=== PATIENT | male | born 1950 | race Caucasian/White ===

== ENCOUNTER → 2019-12-02 08:43 | Outpatient (BNVA) | payer MEDICARE, MEDICAID, SELFPAY | PROVIDERS: Family Provider Nurse Practitioner Family; PCP Nurse Practitioner Family; Visit Provider Nurse Practitioner Family | DX: I10 Essential (primary) hypertension (principal); E78.5 Hyperlipidemia, unspecified | CPT/HCPCS: 80053; 80061 ==

== ENCOUNTER → 2020-11-29 08:57 | Outpatient (BNVA) | payer MEDICARE, MEDICAID, SELFPAY | PROVIDERS: Family Provider Nurse Practitioner Family; PCP Nurse Practitioner Family; Visit Provider Nurse Practitioner Family | DX: E78.5 Hyperlipidemia, unspecified (principal); I10 Essential (primary) hypertension | CPT/HCPCS: 80053; 80061 ==

== ENCOUNTER → 2021-11-27 12:08 | Outpatient (BNVA) | payer MEDICARE, MEDICAID, SELFPAY | PROVIDERS: Family Provider Nurse Practitioner Family; PCP Nurse Practitioner Family; Visit Provider Nurse Practitioner Family | DX: I10 Essential (primary) hypertension (principal); E78.5 Hyperlipidemia, unspecified | CPT/HCPCS: 80053; 80061 ==

== ENCOUNTER → 2022-06-04 09:19 | Outpatient (BNVA) | payer MEDICARE, MEDICAID, SELFPAY | PROVIDERS: Family Provider Nurse Practitioner Family; PCP Nurse Practitioner Family; Visit Provider Nurse Practitioner Family | DX: I10 Essential (primary) hypertension (principal) | CPT/HCPCS: 80053; 80061 ==

== ENCOUNTER 2023-01-08 13:18 | Inpatient (IN) | payer MEDICARE, MEDICAID, SELFPAY ==
[2023-01-08] VITALS (11 sets, daily range): BP systolic 106–130; BP diastolic 70–89; PULSE 73–96; RESP 16–17; TEMP 35.9; O2SAT 98–100; BMI 21.7; BMI 18.3
--- NOTE | 2023-01-08 13:36 | XR_ITS ---
WS: [id number] Exam: XR chest 1V portable [id number] Date/Time of Exam: 01/08/2023 1:36 PM Reason For Exam: ams Comparison 02/19/2013. The lungs are hyperinflated and clear. Normal cardiomediastinal silhouette. No pleural effusions. Sca ttered calcified granulomas. Bony structures are intact. IMPRESSION: 1. Pulmonary hyperinflation which may indicate obstructive lung disease. No acute process.
--- NOTE | 2023-01-08 13:36 | W.ED.WEAKNES ---
HPI - Weakness General: Chief complaint: Weakness Stated complaint: Weakness Time Seen by Provider: 01/08/23 13:36 History of Present Illness: Patient presents to the ER with EMS due to his daughter calling them for altered mental status. Patient is alert and oriented x4 upon arrival with no complaints. Patient denies any chest pain shortness of breath nausea vomiting diarrhea abdominal pain diaphoresis fever chills upon talking to daughter she states patient is now bedbound because he is so weak and has been this way for the last week. She says he will not let her changes diapers and just lays around and soiled diapers, she says he has lost 20 or 30 pounds over the last several months not trying. He just does not eat or drink and is just wasting away to nothing. However he still smokes approximately 4 packs/day and drinks alcohol every single day. Review of Systems General: Reports: 10 or more systems reviewed and unremarkable except in HPI and below PFSH ED PFSH: Medical History Hyperlipidemia Hypertension Surgical History History of ankle surgery Family History Father Cancer throat Social History Smoking and tobacco/nicotine status: current every day tobacco/nicotine user Physical Exam Const: COMMON NORMALS: no acute distress, average body habitus, patient oriented x3, no limitations, healthy appearing, alert and well nourished HENMT: COMMON NORMALS: normocephalic, atraumatic, hearing grossly normal bilaterally, external ears normal, Normal external nose present, moist oral mucous membranes and oropharynx normal HEAD & SCALP: normocephalic and atraumatic NOSE: Normal external nose present EXTERNAL EAR: Yes external ears normal Eye: COMMON NORMALS: Equal, round and reactive pupils present, EOMs intact bilaterally, conjunctivae normal and no scleral icterus CONJUNCTIVA: Yes conjunctivae normal PUPIL: Yes Equal, round and reactive pupils present Neck/C-Spine: COMMON NORMALS: full ROM, no lymphadenopathy, supple, no meningeal signs, no JVD and Thyroid normal THYROID: Thyroid normal Chest: COMMONS NORMALS: normal inspection of the chest and normal palpation of entire chest wall Resp: COMMON NORMALS: normal respiratory effort, No retractions, No use of accessory muscles and clear to auscultation bilaterally AUSCULTATION: clear to auscultation bilaterally Cardio: COMMON NORMALS: no JVD, regular rate, regular rhythm, S1 normal heart sound present, S2 normal heart sound present, No gallops present (Cardio), No clicks present (Cardio), No murmurs present (Cardio) and No rub (Cardio) RATE: regular rate RHYTHM: regular rhythm HEART SOUNDS: S1 normal heart sound present and S2 normal heart sound present GI: COMMON NORMALS: Normal to inspection, nondistended, normoactive bowel sounds present ( Probable left inguinal hernia noted), Soft to palpation, non-tender, No hepatosplenomegaly present and no masses PALPATION: Yes Soft to palpation and Yes No hepatosplenomegaly present Extremity: NARRATIVE EXTREMITY EXAM: Bandages removed on left upper extremity wound bandage was old crusty with multiple ages of drainage noted on it. Wound was approximately a 4 cm round ulcerated raised edge area consistent with probable skin cancer. No purulent drainage or odor noted from wound Neuro: COMMON NORMALS: patient oriented x3 SENSORIUM/ORIENTATION: Yes alert MENINGEAL SIGNS: Yes no meningeal signs Course Vital Signs: Vital signs: Vital Signs Pulse Rate 84 01/08/23 20:11 Respiratory Rate 16 01/08/23 20:11 Blood Pressure 113/73 01/08/23 20:11 Pulse Oximetry 99 01/08/23 20:11 Oxygen Delivery Me thod Room Air 01/08/23 20:11 MDM - Weakness Medical Decision Making patient has obvious skin cancer on his left upper extremity, very heavy long-term smoker, alcoholic, with unintentional weight loss. It is suspected patient has cancer and/or metastases. Patient's lab work showed he is hyponatremic and hypokalemic with an elevated troponin. Dr. Elizabeth was consulted who agreed to admit the patient for further evaluation and treatment. We will silverman scan the patient and scan his left arm. Results are pending. Differential Diagnosis Unlikely acute myocardial infarction, anemia, hypoglycemia, hypothyroidism, rhabdomyolysis, sepsis or dehydration Medical Records I reviewed the patient's medical records. Lab Data I reviewed the patient's lab results. 01/08/23 14:09 01/08/23 14:09 Radiology Impressions Chest/Abdomen/Pelvis CT 01/08/23 15:37 IMPRESSION: 1. 2.3 cm cavitary nodule in the left upper lobe. Consider non-emergent IMPRESSION: 1. No acute findings. 2. Indeterminate 1.7 cm right adrenal nodule. Consider 12 month follow-up adrenal CT. (Reference: Aristides) 3. 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 References: Aristides JOE, et al. Management of Incidental Adrenal Masses: A White Paper of the ACR Incidental Findings Committee. J Am [facility] Radiol. 2017;14(8):9735-6840. Humerus CT 01/08/23 15:39 IMPRESSION: 1. Large cutaneous/dermal lesion in the distal left upper arm as described. Dermatology consultation recommended. 2. 2.3 cm cavitary left upper lobe nodule. Please refer to CT chest report. Laboratory Results WBC 9.03 10^3/uL (3.29-11.43) 01/08/23 14:09 RBC 3.40 10^6/uL (3.85-5.65) L 01/08/23 14:09 Hgb 11.90 g/dL (11.27-16.99) 01/08/23 14:09 Hct 33.0 % (37-53) L 01/08/23 14:09 MCV 97.1 fl (82-101) 01/08/23 14:09 MCH 35.0 pg (27-33) H 01/08/23 14:09 MCHC 36.1 g/dL (30-55) 01/08/23 14:09 RDW 13.7 % (12.1-15.1) 01/08/23 14:09 Plt Count 203 10^3/cmm (157-399) 01/08/23 14:09 MPV 9.6 fL (7.4-10.4) 01/08/23 14:09 Neut % (Auto) 79.3 % 01/08/23 14:09 Lymph % (Auto) 13.3 % 01/08/23 14:09 Slope % (Auto) 6.3 % 01/08/23 14:09 Eos % (Auto) 0.2 % 01/08/23 14:09 Baso % (Auto) 0.3 % 01/08/23 14:09 Neut # (Auto) 7.16 10^3/uL (1.8-7.7) 01/08/23 14:09 Lymph # (Auto) 1.2 10^3/uL (0.8-4.8) 01/08/23 14:09 Slope # (Auto) 0.6 10^3/uL (0.2-0.9) 01/08/23 14:09 Eos # (Auto) 0.0 10^3/uL (0.0-0.8) 01/08/23 14:09 Baso # (Auto) 0.0 10^3/uL (0.0-0.1) 01/08/23 14:09 Nucleated RBC % (auto) 0.2 % 01/08/23 14:09 Nucleated RBCs # 0.0 /100WBC 01/08/23 14:09 ESR 27 mm/hr (0-10) H 01/08/23 14:09 Sodium 128 mmol/L (136-145) L 01/08/23 14:09 Potassium 3.1 mmol/L (3.5-5.1) L 01/08/23 14:09 Chloride 86 mmol/L (98-107) L 01/08/23 14:09 Carbon Dioxide 24 mmol/L (22-29) 01/08/23 14:09 Anion Gap 21.1 (5-19) H 01/08/23 14:09 BUN 20 mg/dL (8-23) 01/08/23 14:09 Creatinine 0.9 mg/dL (0.7-1.2) 01/08/23 14:09 GFR Calculation 83.4 mL/min (90-130) L 01/08/23 14:09 Glucose 112 mg/dL (65-115) 01/08/23 14:09 Estimat Average Glucose 128 01/08/23 14:09 Hemoglobin A1c 6.1 % (4.0-6.0) H 01/08/23 14:09 Calculated Osmolality 269 mOsm/kg (285-295) L 01/08/23 14:09 Uric Acid 9.8 mg/dL (3.4-7.0) H 01/08/23 14:09 Calcium 8.9 mg/dL (8.5-10.5) 01/08/23 14:09 Magnesium 1.7 mg/dL (1.7-2.3) 01/08/23 14:09 Total Bilirubin 0.8 mg/dL (0.15-1.2) 01/08/23 14:09 AST 31 U/L (0-40) 01/08/23 14:09 ALT 25 U/L (0-41) 01/08/23 14:09 Alkaline Phosphatase 118 U/L (40-130) 01/08/23 14:09 Troponin T Baseline 37 ng/L (0-15) H 01/08/23 14:09 Total Protein 6.3 g/dL (6.6-8.7) L 01/08/23 14:09 Albumin 2.9 g/dL (3.5-5.2) L 01/08/23 14:09 Globulin 3.4 g/dL (1.3-4.6) 01/08/23 14:09 Triglycerides 117 mg/dL (0-150) 01/08/23 14:09 Cholesterol 177 mg/dL (0-200) 01/08/23 14:09 LDL Cholesterol, Calc 109 mg/dL (50-129) 01/08/23 14:09 HDL Cholesterol 45 mg/dL (60-100) L 01/08/23 14:09 LDL/HDL Ratio 2.42 RATIO (0.00-3.22) 01/08/23 14:09 Cholesterol/HDL Ratio 3.93 mg/dL (1.0-5.00) 01/08/23 14:09 Carcinoembryonic Ag 3.3 ng/mL (0.0-4.7) 01/08/23 14:09 CA 19-9 Antigen 15.77 U/mL (0-35) 01/08/23 14:09 PSA Screen 16.75 ng/mL (0-4) H 01/08/23 14:09 Vitamin B12 894 pg/mL (232-1245) 01/08/23 14:09 TSH 1.31 uIU/mL (0.27-4.20) 01/08/23 14:09 TSH Cancelled 01/08/23 14:09 All radiology interpretation(s) finalized by discharge EKG Data EKG 1: I personally reviewed and interpreted this EKG as follows: EKG interpretation date: 01/08/23 EKG interpretation time: 13:37 Prior EKG tracings: not available for review Interpretation: EKG showed ventricular rate 89 bpm, W[place] interval 148, QRS duration 77, QTc of 422, sinus rhythm with occasional PVC, ST deviation moderate T wave abnormality Discharge Plan Discharge Patient Disposition: Admitted As Inpatient Admit Provider: Ana Elizabeth Clinical Impression: Elevated troponin, Acute hyponatremia, Acute hypokalemia, Generalized weakness, Unintentional weight loss Condition: Stable Coding Level of Care Code ED 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
--- NOTE | 2023-01-08 13:37 | ECG_ITS ---
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 [id number]
[2023-01-08 14:19] LABS: Basophils % 0.3 %; Eosinophils % 0.2 %; Lymphocytes # 1.2 10^3/uL (0.8-4.8); Lymphocytes % 13.3 %; Mean Corpuscular HGB Conc 36.1 g/dL (30-55); Mean Corpuscular Volume 97.1 fl (82-101); Mean Platelet Volume 9.6 fL (7.4-10.4); Monocytes # 0.6 10^3/uL (0.2-0.9); Monocytes % 6.3 %; Neutrophils # 7.16 10^3/uL (1.8-7.7); Neutrophils % 79.3 %; Nucleated Red Blood Cells % 0.2 %; Platelet Count 203 10^3/cmm (157-399); Red Cell Distribution Width 13.7 % (12.1-15.1); White Blood Count 9.03 10^3/uL (3.29-11.43)
[2023-01-08 14:36] LABS: Alanine Aminotransferase 25 U/L (0-41); Albumin Level 2.9 g/dL (3.5-5.2); Alkaline Phosphatase 118 U/L (40-130); Anion Gap 21.1 (5-19); Aspartate Amino Transferase 31 U/L (0-40); Blood Urea Nitrogen 20 mg/dL (8-23); Calcium 8.9 mg/dL (8.5-10.5); Carbon Dioxide 24 mmol/L (22-29); Chloride 86 mmol/L (98-107); Globulin 3.4 g/dL (1.3-4.6); Glomerular Filtration Rate 83.4 mL/min (90-130); Glucose 112 mg/dL (65-115); Magnesium 1.7 mg/dL (1.7-2.3); Osmolality Calculated 269 mOsm/kg (285-295); Potassium 3.1 mmol/L (3.5-5.1); Sodium 128 mmol/L (136-145); Total Bilirubin 0.8 mg/dL (0.15-1.2); Total Protein 6.3 g/dL (6.6-8.7)
[2023-01-08 14:49] LABS: Troponin(5th) Baseline 37 ng/L (0-15)
--- NOTE | 2023-01-08 14:53 | PC.NURSE ---
pt change of linen pt pants/ socks were removed. pt found to be in a very soiled brief with paper towels and 'rags' pt fond to have scoriation and redness to sacrum and scrotum. pt cleaned with warm wipes. and a new brief placed and sheets changed.
[2023-01-08 14:54] LABS: Thyroid Stimulating Hormone 1.31 uIU/mL (0.27-4.20)
--- NOTE | 2023-01-08 15:37 | CTR_ITS ---
PROCEDURE INFORMATION: Exam: CT Chest With Contrast; Diagnostic Exam date and time: 01/08/2023 4:27 PM Age: 72 years old Clinical indication: Other: Weight loss; Additional info: Unintentional weight loss, heavy smoker, skin cancer niko TECHNIQUE: Imaging protocol: Diagnostic computed tomography of the chest with contrast. Radiation optimization: All CT scans at this facility use at least one of these dose optimization techniques: automated exposure control; mA and/or kV adjustment per patient size (includes targeted exams where dose is matched to clinical indication); or iterative reconstruction. Contrast material: OMNI 350; Contrast volume: 100 ml; Contrast route: INTRAVENOUS (IV); REPORTING DATA: Count of CT and Cardiac NM exams in prior 12 months: This patient has received 0 known CTs and 0 known cardiac nuclear medicine studies in the 12 months prior to the current study. COMPARISON: CR XR chest 1V portable [id number] 01/08/2023 1:41 PM RADIATION DOSE METRICS: Total DLP (mGy-cm): 415 FINDINGS: Lungs: Emphysema. Right middle lobe calcified granulomas. Mild dependent atelectasis. 2.3 cm nodule with small cavitation in the peripheral left upper lobe. Pleural spaces: Unremarkable. No pneumothorax. No pleural effusion. Heart: The heart size is normal. Coronary arteries: Coronary artery calcifications. Lymph nodes: Calcified mediastinal and right hilar lymph nodes. Vasculature: Unremarkable. No aortic aneurysm. Bones/joints: Degenerative changes of the cervical and thoracic spine. No acute fracture. Soft tissues: Unremarkable. PET/CT, or tissue sampling.(Reference: Karen) References: Temihoanupam H, et al. Guidelines for Management of Incidental Pulmonary Nodules Detected on CT Images: From the Fleischner Society 2017. Radiology. 2017;284(1):228-243. COMMENTS: In the absence of a history or active diagnosis of lung cancer, it is recommended that this patient with emphysema be evaluated for enrollment in a low dose CT lung cancer screening program. PROCEDURE INFORMATION: Exam: CT Abdomen And Pelvis With Contrast Exam date and time: 01/08/2023 4:27 PM Age: 72 years old Clinical indication: Other: Weight loss; Additional info: Unintentional weight loss, heavy smoker, skin cancer niko TECHNIQUE: Imaging protocol: Computed tomography of the abdomen and pelvis with contrast. Radiation optimization: All CT scans at this facility use at least one of these dose optimization techniques: automated exposure control; mA and/or kV adjustment per patient size (includes targeted exams where dose is matched to clinical indication); or iterative reconstruction. Contrast material: OMNI 350; Contrast volume: 100 ml; Contrast route: INTRAVENOUS (IV); REPORTING DATA: Count of CT and Cardiac NM exams in prior 12 months: This patient has received 0 known CTs and 0 known cardiac nuclear medicine studies in the 12 months prior to the current study. COMPARISON: CR XR chest 1V portable [id number] 01/08/2023 1:41 PM RADIATION DOSE METRICS: Total DLP (mGy-cm): 415 FINDINGS: Liver: Focal fatty infiltration in the left liver lobe. No suspicious nodule. Gallbladder and bile ducts: Normal. No calcified stones. No ductal dilation. Pancreas: Normal. No ductal dilation. Spleen: Calcified granuloma in the spleen. Adrenal glands: 1.7 cm indeterminate right adrenal nodule, 33 Hounsfield units. The left adrenal is normal. Kidneys and ureters: 3 mm calculi versus vascular calcifications in the central right and left kidneys. No hydronephrosis. Stomach and bowel: Radiopaque material in the gastric lumen is most likely ingested medication. Appendix: The appendix is visualized and is normal. Intraperitoneal space: Unremarkable. No free air. No significant fluid collection. Vasculature: Severe atherosclerotic disease. 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 Moderate-severe stenosis in the proximal superior mesenteric artery Lymph nodes: Unremarkable. No enlarged lymph nodes. Urinary bladder: Distended urinary bladder. No wall thickening. Reproductive: Inhomogeneous prostate with calcifications. Bones/joints: Mild curvature and degenerative changes of the lumbar spine. No acute fracture. 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 Soft tissues: Unremarkable. CT/CT chest abdpel w/*[id number] IMPRESSION: 1. 2.3 cm cavitary nodule in the left upper lobe. Consider non-emergent IMPRESSION: 1. No acute findings. 2. Indeterminate 1.7 cm right adrenal nodule. Consider 12 month follow-up adrenal CT. (Reference: Aristides) 3. 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 References: Aristides JOE, et al. Management of Incidental Adrenal Masses: A White Paper of the ACR Incidental Findings Committee. J Am [facility] Radiol. 2017;14(8):2072-0626.
--- NOTE | 2023-01-08 15:39 | CTR_ITS ---
PROCEDURE INFORMATION: Exam: CT Left Upper Extremity With Contrast, Upper Arm Exam date and time: 01/08/2023 4:27 PM Age: 72 years old Clinical indication: Other: Soft tissue cancerouslike mass; Additional info: Soft tissue cancerouslike mass lateral mid bicep region, TECHNIQUE: Imaging protocol: Computed tomography of the left upper extremity with contrast. Exam focused on the upper arm. Radiation optimization: All CT scans at this facility use at least one of these dose optimization techniques: automated exposure control; mA and/or kV adjustment per patient size (includes targeted exams where dose is matched to clinical indication); or iterative reconstruction. Contrast material: OMNI 350; Contrast volume: 100 ml; Contrast route: INTRAVENOUS (IV); REPORTING DATA: Count of CT and Cardiac NM exams in prior 12 months: This patient has received 0 known CTs and 0 known cardiac nuclear medicine studies in the 12 months prior to the current study. COMPARISON: CT chest abdpel w/*[id number] 01/08/2023 4:27 PM RADIATION DOSE METRICS: Total DLP (mGy-cm): 962 FINDINGS: Bones/joints: The bones are intact. No fracture. Mild degenerative changes of the left shoulder. Soft tissues: Irregular cutaneous/dermal lesion in the anterolateral distal left upper arm. This measures 4.2 cm transversely, 3.4 mm in thickness, and 4.6 cm in length. Lymph nodes: No enlarged lymph nodes. Lungs: 2.3 cm cavitary left upper lobe nodule. CT/CT humerus LT w con [id number] IMPRESSION: 1. Large cutaneous/dermal lesion in the distal left upper arm as described. Dermatology consultation recommended. 2. 2.3 cm cavitary left upper lobe nodule. Please refer to CT chest report.
[2023-01-08] MEDS: potassium chloride ER 20 mEq Tablet 40 MEQ PO (15:40)
[2023-01-08] MEDS: sodium chloride 0.9% 1,000 ML 999 ML IV (15:42)
--- NOTE | 2023-01-08 15:44 | PC.NURSE ---
potassium administration pt had a hard time swallowing, had to remoeve additional doese from pyxis due to waste.
--- NOTE | 2023-01-08 16:25 | ECG_ITS ---
[facility] Test Date: 2023-01-08 Pat Name: Xavi Jorge Department: Room: 276 Gender: Male Gynecologist: : 1950 Requested By: Elivn Heath Order Number: [id number] Katey MD: Barber Ordoñez M.D. Measurements Intervals [place] Rate: 85 P: 76 ID: [id number] QRS: 69 QRSD: 86 T: 39 QT: 386 QTc: 460 Interpretive Statements SINUS RHYTHM WITH SINUS ARRHYTHMIA ST DEVIATION AND MODERATE T-WAVE ABNORMALITY, CONSIDER ANTERIOR ISCHEMIA [-0.1+ mV T-WAVE IN V3/V4] Compared to ECG 01/08/2023 13:37:31 Ventricular premature complex(es) no longer present T-wave abnormality still present Possible ischemia still present Electronically Signed On 01-10-2023 14:16:10 CLEAT MAKER by Barber Ordoñez M.D. [id number]
[2023-01-08 16:54] LABS: Estmated Average Glucose 128; Hemoglobin A1C 6.1 % (4.0-6.0)
[2023-01-08] MEDS: iohexol 350 mg/mL 500 mL Btl (per mL) IV (16:54)
[2023-01-08 16:59] LABS: Chol HDL Ratio 3.93 mg/dL (1.0-5.00); Cholesterol 177 mg/dL (0-200); HDL Cholesterol 45 mg/dL (60-100); LDL Cholesterol Calculated 109 mg/dL (50-129); LDL HDL Ratio 2.42 RATIO (0.00-3.22); Triglycerides 117 mg/dL (0-150); Vitamin B12 894 pg/mL (232-1245)
[2023-01-08 17:34] LABS: Troponin 5 2HR 29.05 ng/L (0-15); Troponin 5 2HR Delta -7.95 ABS# (0-10)
--- NOTE | 2023-01-08 17:53 | PM.HP ---
Providers/Chief Complaint Admitting Physician: Ana Elizabeth MD Primary Care Provider: GUNNAR Rodriguez Chief Complaint: Weakness History of Present Illness Xavi Jorge is a 72 year old male who lives in a trailer, daughter checks on him on daily basis, active smoker, drinks alcohol on daily basis, was transferred to the ER today for generalized weakness recurrent falls and failure to thrive. Patient is not endorsing any chest pain shortness of breath however endorsing unintentional weight loss, there is an ulcer on his left arm which has and rolled edges, it has been there for last 2 years he never had any skin biopsy done in the past, CT scan of the lungs showing cavitary lesion 2.3 cm left upper lobe, I requested TB test, put him in reverse isolation, started antibiotics He is afebrile, significant amount of time was spent on family meetings regarding differential diagnosis of cavitary lesion patient is refusing any work-up however daughter is concerned that he is hallucinating and not able to make good decisions for himself Patient is stating that he will walk out of the hospital in the morning, I have put him on CIWA protocol started phenobarbital added nicotine patch Review of Systems Eyes: Denies: change in vision ENMT: Denies: throat pain Card: Denies: chest pain Resp: Reports: dyspnea GI: Denies: abdominal pain : Denies: flank pain Musc: Denies: neck pain Skin/Breast: Reports: rash, erythema and skin tenderness Medications/Allergies Home Medications Medication Instructions Recorded Confirmed Last Taken Type No Known Home Medications 01/08/23 01/08/23 Unknown History Allergies Allergy/AdvReac Type Severity Reaction Status Date / Time naproxen [From Aleve] Allergy Unknown Verified 01/08/23 14:06 PFSH Acute PFSH: Medical History Hyperlipidemia Hypertension Surgical History History of ankle surgery Family History Father Cancer throat Social History Smoking and tobacco/nicotine status: current every day tobacco/nicotine user Vitals/I&O/Wt Last Vital Signs Pulse 78 01/08/23 16:30 Resp 17 01/08/23 16:00 BP 122/81 01/08/23 16:00 Pulse Ox 98 01/08/23 16:30 O2 Del Method Room Air 01/08/23 16:00 Weight last 48 hrs Weight 68.492 kg Weight 72.575 kg Physical Exam Narrative: Patient was able to answer my questions appropriately I do not see any signs of cognitive impairment at this point No active signs of withdrawal GCS 15 Left arm skin ulcer with rolled edges No active signs cellulitis or purulence Cachectic, malnourished Pleasant and cooperative Abdomen soft Right inguinal hernia reducible Data 01/08/23 14:09 01/08/23 14:09 A&P Assessment and plan (1) Unintentional weight loss: (2) Generalized weakness: (3) Acute hypokalemia: (4) Acute hyponatremia: (5) Elevated troponin: (6) Hyperlipidemia: (7) Hypertension: (8) Skin ulcer: (9) Pulmonary cavitary lesion: (10) Failure to thrive: (11) Malnourished: (12) Protein calorie malnutrition: Plan Cavitary lesion Left upper lobe Rule out TB Requested HIV panel Patient is malnourished We will consult dietitian in the morning Requested sputum sample PCP sputum PCR Patient will need biopsy of the skin ulcer as well with rolled edges Lung cancer needs to be ruled out as well patient is stating that he is not willing to go for biopsy chemotherapy or radiotherapy, 2 daughters present in the room Multiple family meetings conducted today Patient is alcoholic as well start CIWA protocol and start phenobarbital at this time Drinks beer on daily basis Heavy smoker patient stating that he has been smoking since he was 7 years old he smokes more than 1 pack a day start nicotine patch Malnourished with dehydration Hyponatremia hypokalemia start IV fluids Check B12 TSH A1c level Patient is full code for now patient stating that he would like to discuss further with his family and let us know in the morning As per the family they are concerned that he does not have decision making pasty however I have not seen any signs of hallucinations or cognitive impairment during my evaluation, will monitor further Patient lives in a trailer, he is refusing to go to penitentiary as well Daughter stating that she is willing to take him home Regular diet Reverse isolation rule out TB Attestations Medical Necessity Statement*: More than 2 midnights anticipated Diagnoses Unintentional weight loss R63.4 Generalized weakness R53.1 Acute hypokalemia E87.6 Acute hyponatremia E87.1 Elevated troponin R79.89 Hyperlipidemia E78.5 Hypertension I10 Skin ulcer L98.499 Pulmonary cavitary lesion J98.4 Failure to thrive Malnourished E46 Protein calorie malnutrition E46
[2023-01-08 18:55] LABS: Cancer Antigen 19 9 15.77 U/mL (0-35); Uric Acid 9.8 mg/dL (3.4-7.0)
[2023-01-08 18:56] LABS: PSA Screen - Urology 16.75 ng/mL (0-4)
--- NOTE | 2023-01-08 19:00 | CTR_ITS ---
PROCEDURE INFORMATION: Exam: CT Head Without Contrast Exam date and time: 01/08/2023 7:48 PM Age: 72 years old Clinical indication: Other: R/O mets TECHNIQUE: Imaging protocol: Computed tomography of the head without contrast. Radiation optimization: All CT scans at this facility use at least one of these dose optimization techniques: automated exposure control; mA and/or kV adjustment per patient size (includes targeted exams where dose is matched to clinical indication); or iterative reconstruction. REPORTING DATA: Count of CT and Cardiac NM exams in prior 12 months: This patient has received 0 known CTs and 0 known cardiac nuclear medicine studies in the 12 months prior to the current study. COMPARISON: No relevant prior studies available. RADIATION DOSE METRICS: Total DLP (mGy-cm): 1190 FINDINGS: Brain: Moderate cortical volume loss. Physiologic calcifications in the basal ganglia. Moderate hypodensities in supratentorial periventricular and subcortical white matter, consistent with microangiopathy. No intracranial hemorrhage. Cerebral ventricles: No ventriculomegaly. Paranasal sinuses: Small polyp or retention cyst in the anterior right maxillary sinus. The other sinuses are clear. Mastoid air cells: Visualized mastoid air cells are well aerated. Orbital cavities: Prior cataract surgery. Bones/joints: Unremarkable. No acute fracture. Soft tissues: Multiple radiopaque densities in the subcutaneous soft tissues of the right temporal scalp. Vasculature: Contrast is present in the vascular system, from recent CT imaging of the chest abdomen and pelvis. No hyperdense artery. CT/CT head wo con* [id number] IMPRESSION: 1. No definite evidence for metastatic disease. 2. 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
[2023-01-08 20:02] LABS: Erythrocyte Sedimentation Rate 27 mm/hr (0-10)
[2023-01-08 20:13] LABS: Carcinoembryonic Antigen 3.3 ng/mL (0.0-4.7)
--- NOTE | 2023-01-08 20:25 | ECG_ITS ---
[facility] Test Date: 2023-01-08 Pat Name: Xavi Jorge Department: Room: 276 Gender: Male Associate Technician: : [id number] Requested By: Elvin Heath Order Number: [id number] Katey MD: Barber Ordoñez M.D. 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 [id number]
[2023-01-08 20:44] LABS: Ammonia 20 umol/L (16-60)
[2023-01-08] MEDS: PHENobarbital 32.4 mg Tablet 97.2 MG PO (21:00)
[2023-01-08] MEDS: vancomycin 1,000 MG in sodium chloride 0.9% 250 ML 250 MG IV (21:06)
[2023-01-09] VITALS (9 sets, daily range): BP systolic 107–130; BP diastolic 70–84; PULSE 71–82; RESP 13–17; TEMP 36.1–36.7; O2SAT 92–100
[2023-01-09] MEDS: sodium chloride 0.9% 1,000 ML 100 ML IV (00:47)
[2023-01-09] MEDS: piperacillin-tazobactam 3.375 GM in sodium chloride 0.9% (plus) 50 ML IV ×3 (02:11→18:18)
[2023-01-09] MEDS: heparin 5,000 unit/mL INJ 1 mL 5000 UNIT SUBCUT ×2 (02:48→16:54)
[2023-01-09 05:47] LABS: Basophils % 0.3 %; Eosinophils # 0.1 10^3/uL (0.0-0.8); Eosinophils % 1.7 %; Lymphocytes # 1.3 10^3/uL (0.8-4.8); Lymphocytes % 17.1 %; Mean Corpuscular HGB Conc 36.3 g/dL (30-55); Mean Corpuscular Hemoglobin 35.9 pg (27-33); Mean Corpuscular Volume 98.7 fl (82-101); Mean Platelet Volume 9.8 fL (7.4-10.4); Monocytes # 0.5 10^3/uL (0.2-0.9); Monocytes % 6.5 %; Neutrophils # 5.72 10^3/uL (1.8-7.7); Neutrophils % 73.9 %; Nucleated Red Blood Cells % 0.5 %; Platelet Count 155 10^3/cmm (157-399); Red Blood Count 3.04 10^6/uL (3.85-5.65); White Blood Count 7.73 10^3/uL (3.29-11.43)
[2023-01-09 06:03] LABS: Anion Gap 14.8 (5-19); Blood Urea Nitrogen 19 mg/dL (8-23); C Reactive Protein 28.9 mg/L (0.0-4.9); Calcium 8.3 mg/dL (8.5-10.5); Carbon Dioxide 27 mmol/L (22-29); Chloride 92 mmol/L (98-107); Glomerular Filtration Rate 95.6 mL/min (90-130); Glucose 101 mg/dL (65-115); Magnesium 1.8 mg/dL (1.7-2.3); Osmolality Calculated 272 mOsm/kg (285-295); Phosphorus 3.7 mg/dL (2.5-4.5); Potassium 3.8 mmol/L (3.5-5.1); Sodium 130 mmol/L (136-145)
[2023-01-09] MEDS: vancomycin 1,000 MG in sodium chloride 0.9% 250 ML 250 MG IV ×2 (06:30→18:17)
--- NOTE | 2023-01-09 10:18 | PC.CHAP ---
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 [] Patient/Family/Request visit [] Outpatient visit [] Follow-up visit [] Physician referral [] Code/Alert [x] Routine visit [] Staff referral [] Actively dying [] Patient sleeping [] Family support [] [] Out of room [] Palliative care [] [] Receiving care in room [] Pre-surgical visit [] Trauma [] Long length of stay [] ICU visit [x] Other: Isolation Relational/Emotional Strength [] Patient feels connected with others/family/visitors/staff [] Distress [] Loneliness/isolation [] Abandonment Spirituality of Patient [] Person of Jennifer [] Attends Episcopal of their Jennifer [] Believes in Prayer [] Reads Bible or Mandaeism materials [] There are Spiritual issues to be addressed 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 [] Prayer [] Active listening [] Non-anxious presence [] Spiritual/emotional support [] Crisis/trauma care [] Spiritual counseling [] Bereavement support [] Provided bereavement packet [] Provided Bible/devotional materials [] Provided toy/stuffed animal, coloring book to patient or family member [] Provided Communion [] Anointing/[place] [] Salvation [] Completed spiritual assessment [] Other: Impact on Illness or Injury [] Angry [] Fearful [] Anxious [] Often cries [] Exhaustion [] Unable to work [] Unable to attend congregational [] Unable to walk/stand [] Unable to read [] Unable to drive [] Unable to eat/drink [] Unable to sleep [] Unable to be with family [] Patient intubated [] Other: Summary Isolation Time spent with patient 5 mins
[2023-01-09] MEDS: PHENobarbital 32.4 mg Tablet 97.2 MG PO ×2 (10:26→18:16)
[2023-01-09] MEDS: nicotine 21 mg Patch 1 PATCH TRANSDERMA (10:27)
[2023-01-09] MEDS: folic acid 1 mg Tablet PO (10:27)
[2023-01-09] MEDS: thiamine 100 mg Tablet PO (10:27)
[2023-01-09] MEDS: multivitamin therapeutic Tablet 1 TAB PO (10:27)
--- NOTE | 2023-01-09 10:45 | PM.PN ---
Subjective Subjective: Patient is afebrile, no leukocytosis No active cough hemoptysis Patient is stating that he is doing better On room air We will touch base with rheumatology and pulmonology Patient is agreeable for investigation or biopsy if that is needed Vitals/I&O/Wt Last Vital Signs Temp 97 F L 01/09/23 04:05 Pulse 73 01/09/23 08:00 Resp 14 01/09/23 08:00 BP 120/79 01/09/23 08:00 Pulse Ox 99 01/09/23 08:00 O2 Del Method Room Air 01/09/23 08:00 01/08/23 01/09/23 01/09/23 22:59 06:59 14:59 Intake Total 1250 / 1250 400 / 1650 490 / 490 Balance 1250 / 1250 400 / 1650 490 / 490 Weight last 48 hrs Weight 68.492 kg Weight 72.575 kg Physical Exam Narrative: Cachectic Malnourished GCS 15 Awake and alert Currently on room air Pleasant cooperative No active signs of withdrawal S1, S2 Abdomen soft Right inguinal hernia reducible Left arm ulcer with rolled edges Clean base Data 01/09/23 05:35 01/09/23 05:35 Micro: Microbiology 01/08/23 18:42 Blood Culture - Preliminary Blood SPECIMEN COLLECTED 01/08/23 18:38 Blood Culture - Preliminary Blood SPECIMEN COLLECTED A&P Assessment and plan (1) Protein calorie malnutrition: (2) Malnourished: (3) Failure to thrive: (4) Pulmonary cavitary lesion: (5) Skin ulcer: (6) Acute hyponatremia: (7) Acute hypokalemia: (8) Unintentional weight loss: (9) Generalized weakness: (10) Alcohol abuse: Plan Cavitary lesion Left upper lobe Rule out TB Currently on broad-spectrum antibiotics Afebrile Currently on room air We will touch base with pulmonology Continue DuoNeb treatment Alcohol withdrawal no active signs Drinks more than 3 beers a day Currently on phenobarbital Active smoker smokes more than 1 pack/day stating that he has been smoking since age 7 Fatty liver No active signs of confusion No active hallucination Chronic avascular necrosis of hip no acute pain Agreeable for treatment Full code Regular diet We will add supplements protein calorie malnourishment Attestations Medical Necessity Statement*: Continue medical management Diagnoses Protein calorie malnutrition E46 Malnourished E46 Failure to thrive Pulmonary cavitary lesion J98.4 Skin ulcer L98.499 Acute hyponatremia E87.1 Acute hypokalemia E87.6 Unintentional weight loss R63.4 Generalized weakness R53.1 Alcohol abuse F10.10
--- NOTE | 2023-01-09 12:51 | PM.CONSULT ---
Providers/Reason For Consult Consulting Physician/Specialty*: General surgery Reason for Consult*: Biopsy of left upper extremity skin lesion Attending Physician: Ana Elizabeth MD Primary Care Provider: GUNNAR Rodriguez History of Present Illness History of Present Illness Xavi Jorge is a 72 year old male who was admitted to the hospital with weakness and failure to thrive, during work-up he was noted to have a left upper lobe 2.3 cm cavitary lesion. In addition he was found to have a left upper extremity ulcerated wound at the level of the arm on the external aspect of this. I have been requested to evaluate the patient for biopsy of this lesion. Review of Systems General: Reports: 10 or more systems reviewed and unremarkable except in HPI and below Medications/Allergies Home Medications Medication Instructions Recorded Confirmed Last Taken Type No Known Home Medications 01/08/23 01/08/23 Unknown History Allergies Allergy/AdvReac Type Severity Reaction Status Date / Time naproxen [From Aleve] Allergy Unknown Verified 01/08/23 14:06 Current Medications Generic Name Dose Route Start Last Admin Trade Name Joonq PRN Reason Stop Dose Admin Folic Acid 1 mg 01/09/23 09:00 01/09/23 10:27 Folic Acid 1 Mg Tablet PO 1 mg DAILY NELI Administration Heparin Sodium (Porcine) 5,000 unit 01/08/23 15:45 01/09/23 02:48 Heparin 5,000 Unit/Ml Inj 1 Ml SUBCUT 5,000 unit Q12H NELI Administration Piperacillin Sod/Tazobactam 50 mls @ 12.5 mls/hr 01/08/23 18:30 01/09/23 10:27 Sod 3.375 gm/ Sodium Chloride IV 12.5 mls/hr Q8H NELI Administration Vancomycin HCl 1,000 mg/ 250 mls @ 250 mls/hr 01/08/23 19:00 01/09/23 07:30 Sodium Chloride IV Infused Q12H NELI Infusion Multivitamins Therapeutic 1 tab 01/09/23 09:00 01/09/23 10:27 Multivitamin Therapeutic Tablet PO 1 tab DAILY NELI Administration Nicotine 1 patch 01/09/23 09:00 01/09/23 10:27 Nicotine 21 Mg Patch TRANSDERMA 1 patch DAILY NELI Administration Phenobarbital 97.2 mg 01/08/23 19:15 01/09/23 10:26 Phenobarbital 32.4 Mg Tablet PO 97.2 mg BID NELI Administration Thiamine Mononitrate 100 mg 01/09/23 09:00 01/09/23 10:27 Thiamine 100 Mg Tablet PO 100 mg DAILY NELI Administration PFSH Acute PFSH: Medical History Hyperlipidemia Hypertension Surgical History History of ankle surgery Family History Father Cancer throat Social History Smoking and tobacco/nicotine status: current every day tobacco/nicotine user Vitals/I&O/Wt Last Vital Signs Temp 97 F L 01/09/23 04:05 Pulse 73 01/09/23 08:00 Resp 14 01/09/23 08:00 BP 120/79 01/09/23 08:00 Pulse Ox 99 01/09/23 08:00 O2 Del Method Room Air 01/09/23 08:00 01/08/23 01/09/23 01/09/23 22:59 06:59 14:59 Intake Total 1250 / 1250 400 / 1650 1490 / 1490 Balance 1250 / 1250 400 / 1650 1490 / 1490 Weight last 48 hrs Weight 151 lb Weight 160 lb Physical Exam Narrative: General : Patient is well developed , no acute distress, oriented x3 Head : Normal cephalic, a-traumatic. Nose : Mucous membranes are without erythema. Lungs : Equal chest rise bilaterally, no use of accessory muscles, trachea is midline. CV : Rate and rhythm are normal. Abdomen : Soft, ND, NT, no g/r/m Extremities : On the left upper extremity at the level of the mid arm on the posteriorLateral aspect there is an lesion measuring about 3 x 3 cm, with irregular margins, raising concern for possible skin carcinoma. Back : non-tender to palpation, no CVA tenderness. Data 01/09/23 05:35 01/09/23 05:35 Micro: Microbiology 01/08/23 18:42 Blood Culture - Preliminary Blood SPECIMEN COLLECTED 01/08/23 18:38 Blood Culture - Preliminary Blood SPECIMEN COLLECTED A&P Assessment and plan (1) Skin ulcer: After complete history, physical examination and review of all available clinical data follows my assessment. Patient has had this chronic wound in the left upper extremity for years now, according to the patient the start of a small bump and then eventually ulcerated, this raises a concern for possibility of a skin cancer. Therefore I Decided to proceed with a punch full-thickness biopsy of the lesion margins. I have discussed all the risk and benefits with the patient including the risk of infection, improper wound healing, poor cosmetic outcome, lack of pathological diagnosis, need for additional procedures, wound Bleeding. Patient agrees with the risks and wishes to proceed. Punch biopsy was done at the bedside, specimens will be sent to pathology. Patient can follow-up in my clinic in 2 weeks for removal of the stitches and discussion of pathological diagnosis. Coding Level of Care Code 83046 Diagnoses Skin ulcer L98.499
--- NOTE | 2023-01-09 12:55 | PM.ACPR ---
Procedure/Consent Consent: Additional Consent Information: Consent was obtained from the patient after discussion of risk and benefits as documented in my previous consult note. Procedure Narrative: The left upper extremity was prepped and draped in the usual sterile fashion. A timeout was conducted with the unit nurse. I then proceeded to use a punch biopsy instrument measuring 4 mm to take for full-thickness samples of a continuous part of the lateral margin of the ulcerated lesion. In total about 1.2 cm of tissue were removed from the margin taking consideration of attempting to include a sliver of healthy skin into the resection margin. The punch biopsies were resected from the subcutaneous tissue with a 15 blade and then placed into formalin To still be sent to pathology. Hemostasis was achieved by pressure, I then placed several #3-0 Prolene sutures on the wound to approximate the edges. A sterile dressing was applied. At the end of the procedure the patient was feeling fine, he tolerated without complications.
[2023-01-09] MEDS: lidocaine-epi 1% 20 mL INJ INJECTION (13:13)
--- NOTE | 2023-01-09 13:13 | PC.NURSE ---
The lidocaine with epi was used at bedside during a punch biopsy by Dr. Oneal. This nurse scanned med but the medication was administered by Dr. Oneal.
[2023-01-09 14:39] LABS: Osmolality Serum 270 mOsm/kg (278-305)
[2023-01-10] VITALS (7 sets, daily range): BP systolic 93–114; BP diastolic 66–79; PULSE 74–89; RESP 16–19; TEMP 36.5–37; O2SAT 97–100
[2023-01-10] MEDS: piperacillin-tazobactam 3.375 GM in sodium chloride 0.9% (plus) 50 ML IV ×3 (01:32→21:45)
[2023-01-10] MEDS: heparin 5,000 unit/mL INJ 1 mL 5000 UNIT SUBCUT ×2 (03:01→15:01)
[2023-01-10 06:11] LABS: Basophils % 0.4 %; Eosinophils # 0.1 10^3/uL (0.0-0.8); Eosinophils % 1.5 %; Hematocrit 26.5 % (37-53); Lymphocytes # 1.4 10^3/uL (0.8-4.8); Lymphocytes % 16.8 %; Mean Corpuscular HGB Conc 35.5 g/dL (30-55); Mean Corpuscular Hemoglobin 35.2 pg (27-33); Mean Corpuscular Volume 99.3 fl (82-101); Mean Platelet Volume 9.8 fL (7.4-10.4); Monocytes # 0.5 10^3/uL (0.2-0.9); Monocytes % 5.6 %; Neutrophils # 6.18 10^3/uL (1.8-7.7); Neutrophils % 75.1 %; Nucleated Red Blood Cells % 0 %; Platelet Count 145 10^3/cmm (157-399); Red Blood Count 2.67 10^6/uL (3.85-5.65); Red Cell Distribution Width 13.8 % (12.1-15.1); White Blood Count 8.22 10^3/uL (3.29-11.43)
[2023-01-10 06:29] LABS: Anion Gap 13.4 (5-19); Blood Urea Nitrogen 14 mg/dL (8-23); Calcium 7.9 mg/dL (8.5-10.5); Carbon Dioxide 25 mmol/L (22-29); Chloride 97 mmol/L (98-107); Glomerular Filtration Rate 73.9 mL/min (90-130); Glucose 84 mg/dL (65-115); Osmolality Calculated 274 mOsm/kg (285-295); Potassium 3.4 mmol/L (3.5-5.1); Sodium 132 mmol/L (136-145); Vancomycin Trough 19.8 ug/mL (10-15)
[2023-01-10] MEDS: vancomycin 1,000 MG in sodium chloride 0.9% 250 ML 250 MG IV ×2 (06:41→17:49)
[2023-01-10] MEDS: nicotine 21 mg Patch 1 PATCH TRANSDERMA (10:46)
[2023-01-10] MEDS: folic acid 1 mg Tablet PO (10:47)
[2023-01-10] MEDS: thiamine 100 mg Tablet PO (10:47)
[2023-01-10] MEDS: multivitamin therapeutic Tablet 1 TAB PO (10:47)
--- NOTE | 2023-01-10 11:09 | MR_ITS ---
WS: [id number] MRI BRAIN WITHOUT CONTRAST HISTORY: confabulation COMPARISON: CT head 01/08/2023 TECHNIQUE: Diffusion imaging, multiplanar T1, T2 and FLAIR imaging obtained. Single focus of ischemia with consistent with an acute lacunar infarct in the posterior RIGHT frontal lobe. Study is significantly limited by motion artifact on the remaining sequences. There is no midline faisal ft. The extent of white matter disease is difficult to determine with this amount of motion. Ventricles d o not appear dilated. There is at least moderate atrophy. No inferior displacement of the cerebellar tonsils. Paranasal sinuses: Clear. Mastoid air cells: Normal. Calvarium and scalp: Intact. IMPRESSION: 1. Small acute lacunar infarct in the posterior RIGHT frontal lobe. 2. Remaining brain is significantly limited as there is extensive motion artifact during this examin ation. There are no large areas of hemorrhage. 3. At least moderate cerebral atrophy.
--- NOTE | 2023-01-10 11:09 | PM.PN ---
Subjective Subjective: Skin biopsy results pending Patient does confabulate However pleasant and cooperative Does not have capacity to make decision for himself Afebrile Not requiring oxygen Diarrhea today we will request C. difficile We will request head MRI We will need half-way placement Dr. Ambriz might plan for bronchoscopy on Friday Patient does not have any medical power of district attorney, oldest son is Xavi who works full-time, he asked me to reach out to his lgaapgoy-rj-tft of Xavi Jorge in case we need to get consent however they are agreeable for biopsy, bronchoscopy Spoke with the family, son and urvutoei-sr-wjo, Zgaztdfy-ay-kma's phone number is [phone] Vitals/I&O/Wt Last Vital Signs Temp 98.6 F 01/10/23 07:34 Pulse 74 01/10/23 07:34 Resp 16 01/10/23 07:34 BP 112/74 01/10/23 07:34 Pulse Ox 99 01/10/23 07:34 O2 Del Method Room Air 01/10/23 07:34 01/09/23 01/10/23 01/10/23 22:59 06:59 14:59 Intake Total 611.042 / 2391.042 98.958 / 2490.000 730 / 730 Output Total 860 / 860 25 / 885 Balance -248.958 / 1531.042 73.958 / 1605.000 730 / 730 Weight last 48 hrs Weight 71.866 kg Weight 68.492 kg Weight 72.575 kg Physical Exam Narrative: Signs of dehydration Cachectic, malnourished Confabulates Pleasant and cooperative No active signs of focal deficit S1, S2 Currently on room air Weak and lethargic GCS 15 AO x1 Urinary Catheter Management: Ram: Cath Placed During This Visit: yes Reason for Continuing Indwelling Catheter: Acute Urinary Retention or Obstruction Urinary Catheter Date of Insertion: 01/09/23 Urinary Catheter Time of Insertion: 18:12 Data 01/10/23 06:01 01/10/23 06:01 Micro: Microbiology 01/09/23 18:17 Bacterial Antigens - Final Urine,Clean Catch 01/09/23 18:17 Legionella Urinary Antigen - Final Urine,Clean Catch 01/08/23 18:42 Blood Culture - Preliminary Blood NEGATIVE TO DATE 01/08/23 18:38 Blood Culture - Preliminary Blood NEGATIVE TO DATE A&P Assessment and plan (1) Alcohol abuse: (2) Protein calorie malnutrition: (3) Malnourished: (4) Failure to thrive: (5) Pulmonary cavitary lesion: (6) Skin ulcer: (7) Elevated troponin: (8) Acute hyponatremia: (9) Acute hypokalemia: (10) Generalized weakness: (11) Unintentional weight loss: (12) Encounter for assessment of decision-making capacity: (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 Wernicke's Korsakoff Physical therapy on daily basis Continue thiamine folic acid No active signs of withdrawal I will reduce the dose of phenobarbital we will request head MRI Head CT unremarkable Cavitary lesion left upper lobe Bronchoscopy on Friday Continue broad-spectrum antibiotics Afebrile Leukocytosis Interferon gamma gold QuantiFERON results pending 3 sputum samples at 8 AM will get sample on daily basis Left arm skin ulcer status post biopsy, results pending Malnourished cachectic Added supplemental diet Consulted dietitian Patient does not have capacity to make decision in my opinion, is suffering from Wernicke's encephalopathy with Korsakoff Diarrhea, rule out C. difficile Regular diet Full code DVT prophylaxis on board Heavy smoker continue nicotine patch Disposition: group home placement Attestations Medical Necessity Statement*: Continue medical management Diagnoses Alcohol abuse F10.10 Protein calorie malnutrition E46 Malnourished E46 Failure to thrive Pulmonary cavitary lesion J98.4 Skin ulcer L98.499 Elevated troponin R79.89 Acute hyponatremia E87.1 Acute hypokalemia E87.6 Generalized weakness R53.1 Unintentional weight loss R63.4 Encounter for assessment of decision-making capacity Z01.89 Alcoholic Korsakoff syndrome F10.96
--- NOTE | 2023-01-10 12:44 | PM.CONSULT ---
Providers/Reason For Consult Consulting Physician/Specialty*: Kyle Ambriz MD/pulmonary critical care Reason for Consult*: Left upper lobe cavitary lesion Requesting Physician: Lavelle Castellanos MD Attending Physician: Lavelle Castellanos MD Primary Care Provider: GUNNAR Rodriguez History of Present Illness History of Present Illness Xavi Jorge is a 72 year old male who lives in a trailer, daughter checks on him on daily basis, active smoker, drinks alcohol on daily basis, admitted to hospital for generalized weakness recurrent falls and failure to thrive. Admission CT scan of the lungs showing cavitary lesion 2.3 cm left upper lobe-patient was placed in airborne isolation-started vancomycin and Zosyn, work-up for cavitary lesion-TB QuantiFERON, fungal serology-pending Given his chronic alcoholism-he was started on multivitamin/thiamine-he has intermittent confusion-there is a concern for Wernicke's/Korsakoff syndrome; head CT did not reveal any mass lesions. Head MRI showed small acute lacunar infarct in posterior right frontal lobe. Given smoking history-left upper lobe cavitary lesion suspicious for malignancy-hence pulmonary consult requested for possible biopsy Patient is alert arousable and can carry on communication but at times he seems confused; he tells me smoking 1 pack/day for at least more than 40 years. Does not use any inhalers.He denies chest pain, shortness of breath however endorsing unintentional weight loss there is a concern if he can make good decisions for himself. Family is actively involved in decision making. Patient may be discharged to residential after this hospitalization and as per family is very noncompliant and may not come back for outpatient procedures. Patient is on on CIWA protocol-currently receiving phenobarbital as well as nicotine patch There is an ulcer on his left arm which has and rolled edges,? it has been there for last 2 years-General surgery was consulted and biopsied the lesion-pathology pending. Review of Systems General: Reports: 10 or more systems reviewed and unremarkable except in HPI and below Medications/Allergies Home Medications Medication Instructions Recorded Confirmed Last Taken Type No Known Home Medications 01/08/23 01/08/23 Unknown History Allergies Allergy/AdvReac Type Severity Reaction Status Date / Time naproxen [From Aleve] Allergy Unknown Verified 01/08/23 14:06 Current Medications Generic Name Dose Route Start Last Admin Trade Name Freq PRN Reason Stop Dose Admin Folic Acid 1 mg 01/09/23 09:00 01/10/23 10:47 Folic Acid 1 Mg Tablet PO 1 mg DAILY NELI Administration Heparin Sodium (Porcine) 5,000 unit 01/08/23 15:45 01/10/23 03:01 Heparin 5,000 Unit/Ml Inj 1 Ml SUBCUT 5,000 unit Q12H NELI Administration Piperacillin Sod/Tazobactam 50 mls @ 12.5 mls/hr 01/08/23 18:30 01/10/23 10:46 Sod 3.375 gm/ Sodium Chloride IV 12.5 mls/hr Q8H NELI Administration Vancomycin HCl 1,000 mg/ 250 mls @ 250 mls/hr 01/08/23 19:00 01/10/23 09:09 Sodium Chloride IV Infused Q12H NELI Infusion Multivitamins Therapeutic 1 tab 01/09/23 09:00 01/10/23 10:47 Multivitamin Therapeutic Tablet PO 1 tab DAILY NELI Administration Nicotine 1 patch 01/09/23 09:00 01/10/23 10:46 Nicotine 21 Mg Patch TRANSDERMA 1 patch DAILY NELI Administration Thiamine Mononitrate 100 mg 01/09/23 09:00 01/10/23 10:47 Thiamine 100 Mg Tablet PO 100 mg DAILY NELI Administration PFSH Acute PFSH: Medical History Hyperlipidemia Hypertension Surgical History History of ankle surgery Family History Father Cancer throat Social History Smoking and tobacco/nicotine status: current every day tobacco/nicotine user Vitals/I&O/Wt Last Vital Signs Temp 97.7 F 01/10/23 12:00 Pulse 78 01/10/23 12:00 Resp 18 01/10/23 12:00 BP 93/66 01/10/23 12:00 Pulse Ox 100 01/10/23 12:00 O2 Del Method Room Air 01/10/23 12:00 01/09/23 01/10/23 01/10/23 22:59 06:59 14:59 Intake Total 611.042 / 2391.042 98.958 / 2490.000 730 / 730 Output Total 860 / 860 25 / 885 Balance -248.958 / 1531.042 73.958 / 1605.000 730 / 730 Weight last 48 hrs Weight 158 lb 7 oz Weight 151 lb Weight 160 lb Physical Exam Narrative: General: alert, NAD, at times confused HEENT: conj clear, EOMI, PERRL, mmm, Neck: supple, no meningismus Heme: no cervical LAP Respiratory: Inspection: No visible deformity of the chest wall Palpation: Trachea is mildly deviated to the right, bilateral symmetric expansion Percussion: Bilateral tympanic percussion note both anterior and posteriorly Auscultation: Bilateral clear to auscultation both anterior and posteriorly, no crackles wheezing or rhonchi Cardiovascular: rrr, nl s1s2, no mrg Abdomen: soft, nt, nd, no r/g, bs+ Extremities: pulses +, no edema, no c/c : no CVA tenderness Skin: intact, no rash MSK: no back or neck pain Neurologic: grossly intact Urinary Catheter Management: Ram: Cath Placed During This Visit: yes Reason for Continuing Indwelling Catheter: Acute Urinary Retention or Obstruction Urinary Catheter Date of Insertion: 01/09/23 Urinary Catheter Time of Insertion: 18:12 Data 01/11/23 04:12 01/11/23 04:12 Other Labs: Radiology Impressions Chest/Abdomen/Pelvis CT 01/08/23 15:37 IMPRESSION: 1. 2.3 cm cavitary nodule in the left upper lobe. Consider non-emergent IMPRESSION: 1. No acute findings. 2. Indeterminate 1.7 cm right adrenal nodule. Consider 12 month follow-up adrenal CT. (Reference: Aristides) 3. 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 References: Aristides JOE, et al. Management of Incidental Adrenal Masses: A White Paper of the ACR Incidental Findings Committee. J Am Heaven Radiol. 2017;14(8):2738-[address]604. Humerus CT 01/08/23 15:39 IMPRESSION: 1. Large cutaneous/dermal lesion in the distal left upper arm as described. Dermatology consultation recommended. 2. 2.3 cm cavitary left upper lobe nodule. Please refer to CT chest report. Head CT 01/08/23 19:00 IMPRESSION: 1. No definite evidence for metastatic disease. 2. 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 Laboratory Results WBC 7.90 10^3/uL (3.29-11.43) 01/11/23 04:12 RBC 2.51 10^6/uL (3.85-5.65) L 01/11/23 04:12 Hgb 8.80 g/dL (11.27-16.99) L 01/11/23 04:12 Hct 24.7 % (37-53) L 01/11/23 04:12 MCV 98.4 fl (82-101) 01/11/23 04:12 MCH 35.1 pg (27-33) H 01/11/23 04:12 MCHC 35.6 g/dL (30-55) 01/11/23 04:12 RDW 13.8 % (12.1-15.1) 01/11/23 04:12 Plt Count 150 10^3/cmm (157-399) L 01/11/23 04:12 MPV 10.3 fL (7.4-10.4) 01/11/23 04:12 Neut % (Auto) 66.9 % 01/11/23 04:12 Lymph % (Auto) 21.6 % 01/11/23 04:12 [place] % (Auto) 6.3 % 01/11/23 04:12 Eos % (Auto) 2.4 % 01/11/23 04:12 Baso % (Auto) 0.9 % 01/11/23 04:12 Neut # (Auto) 5.28 10^3/uL (1.8-7.7) 01/11/23 04:12 Lymph # (Auto) 1.7 10^3/uL (0.8-4.8) 01/11/23 04:12 [place] # (Auto) 0.5 10^3/uL (0.2-0.9) 01/11/23 04:12 Eos # (Auto) 0.2 10^3/uL (0.0-0.8) 01/11/23 04:12 Baso # (Auto) 0.1 10^3/uL (0.0-0.1) 01/11/23 04:12 Nucleated RBC % (auto) 0 % 01/11/23 04:12 Nucleated RBCs # 0.0 /100WBC 01/11/23 04:12 ESR 27 mm/hr (0-10) H 01/08/23 14:09 Sodium 133 mmol/L (136-145) L 01/11/23 04:12 Potassium 3.3 mmol/L (3.5-5.1) L 01/11/23 04:12 Chloride 100 mmol/L (98-107) 01/11/23 04:12 Carbon Dioxide 23 mmol/L (22-29) 01/11/23 04:12 Anion Gap 13.3 (5-19) 01/11/23 04:12 BUN 13 mg/dL (8-23) 01/11/23 04:12 Creatinine 0.9 mg/dL (0.7-1.2) 01/11/23 04:12 GFR Calculation 83.4 mL/min (90-130) L 01/11/23 04:12 Glucose 87 mg/dL (65-115) 01/11/23 04:12 Estimat Average Glucose 128 01/08/23 14:09 Hemoglobin A1c 6.1 % (4.0-6.0) H 01/08/23 14:09 Serum Osmolality 270 mOsm/kg (278-305) L 01/08/23 14:09 Calculated Osmolality 275 mOsm/kg (285-295) L 01/11/23 04:12 Uric Acid 9.8 mg/dL (3.4-7.0) H 01/08/23 14:09 Calcium 8.2 mg/dL (8.5-10.5) L 01/11/23 04:12 Phosphorus 3.7 mg/dL (2.5-4.5) 01/09/23 05:35 Magnesium 1.8 mg/dL (1.7-2.3) 01/09/23 05:35 Total Bilirubin 0.8 mg/dL (0.15-1.2) 01/08/23 14:09 AST 31 U/L (0-40) 01/08/23 14:09 ALT 25 U/L (0-41) 01/08/23 14:09 Alkaline Phosphatase 118 U/L (40-130) 01/08/23 14:09 Ammonia 20 umol/L (16-60) 01/08/23 20:17 Troponin T Baseline 37 ng/L (0-15) H 01/08/23 14:09 Troponin T 120 Minute 29.05 ng/L (0-15) H 01/08/23 16:48 Delta Troponin T -7.95 ABS# (0-10) L 01/08/23 16:48 Troponin T Hi Sens 6Hr 30.00 ng/L (0-15) H 01/08/23 20:17 Troponin T Hi Sens 6Hr Delta -7.00 ng/L (0-12) L 01/08/23 20:17 C-Reactive Protein 28.9 mg/L (0.0-4.9) H 01/09/23 05:35 Total Protein 6.3 g/dL (6.6-8.7) L 01/08/23 14:09 Albumin 2.9 g/dL (3.5-5.2) L 01/08/23 14:09 Globulin 3.4 g/dL (1.3-4.6) 01/08/23 14:09 Triglycerides 117 mg/dL (0-150) 01/08/23 14:09 Cholesterol 177 mg/dL (0-200) 01/08/23 14:09 LDL Cholesterol, Calc 109 mg/dL (50-129) 01/08/23 14:09 HDL Cholesterol 45 mg/dL (60-100) L 01/08/23 14:09 LDL/HDL Ratio 2.42 RATIO (0.00-3.22) 01/08/23 14:09 Cholesterol/HDL Ratio 3.93 mg/dL (1.0-5.00) 01/08/23 14:09 Carcinoembryonic Ag 3.3 ng/mL (0.0-4.7) 01/08/23 14:09 CA 19-9 Antigen 15.77 U/mL (0-35) 01/08/23 14:09 PSA Screen 16.75 ng/mL (0-4) H 01/08/23 14:09 Vitamin B12 894 pg/mL (232-1245) 01/08/23 14:09 TSH 1.31 uIU/mL (0.27-4.20) 01/08/23 14:09 TSH Cancelled 01/08/23 14:09 Urine Color Tiff (Yellow) 01/11/23 02:56 Urine Appearance Hazy (CLEAR) A 01/11/23 02:56 Urine pH 5 (5-7) 01/11/23 02:56 Ur Specific [place] 1.005 (1.005-1.030) 01/11/23 02:56 Urine Protein Neg (Negative) 01/11/23 02:56 Urine Glucose (UA) Norm (Normal) 01/11/23 02:56 Urine Ketones Negative (Negative) 01/11/23 02:56 Urine Blood 2+ (Negative) H 01/11/23 02:56 Urine Nitrate Negative (Negative) 01/11/23 02:56 Urine Bilirubin Neg (Negative) 01/11/23 02:56 Urine Urobilinogen 8 mg/dL (Negative) H 01/11/23 02:56 Ur Leukocyte Esterase 1+ (Negative) H 01/11/23 02:56 Urine RBC Rare /hpf (0-2) 01/11/23 02:56 Urine WBC Rare /hpf (0-5) 01/11/23 02:56 Ur Squamous Epith Cells None /hpf (0-5) 01/11/23 02:56 Amorphous Sediment 2+ /hpf 01/11/23 02:56 Urine Bacteria Trace /hpf (NONE) 01/11/23 02:56 Ur Random Sodium 26 mmol/L 01/11/23 02:56 Vancomycin Trough 19.8 ug/mL (10-15) H 01/10/23 06:01 Micro: Microbiology 01/09/23 18:17 Bacterial Antigens - Final Urine,Clean Catch 01/09/23 18:17 Legionella Urinary Antigen - Final Urine,Clean Catch 01/08/23 18:42 Blood Culture - Preliminary Blood NEGATIVE TO DATE 01/08/23 18:38 Blood Culture - Preliminary Blood NEGATIVE TO DATE A&P Assessment and plan (1) Pulmonary cavitary lesion: With significant weight loss as well as smoking history-left upper lobe cavitary lesion is suspicious for malignancy However given his history of alcoholism-it could be lung abscess-currently he is being treated with vancomycin/Zosyn Patient is in airborne [id number]-ic for TB, fungal is sent and currently pending Patient is alert arousable and can carry on communication but at times he seems confused; there is a concern if he can make good decisions for himself. Family is actively involved in decision making. Extensive discussion regarding pulmonary cavitary lesions and the differentials including lung abscess, TB, fungal infections as well as possibility of malignancy were all discussed in detail. I have given options to treat with antibiotics at this point of time and repeat CT scan in 4 weeks to see if the left upper lobe lesion is still present then we can proceed with bronchoscopic biopsy. But family informed that patient may be discharged to residential after this hospitalization and he is very noncompliant and may not come back for outpatient procedures. I also discussed at length about the ultimate goals of care regarding cancer treatments including radiation/surgery/chemotherapy for which family wanted to know the diagnosis and make decisions depending on the results. All in all family requested for biopsy while patient is in the hospital. For that I have given the option of going for robotic navigational guided biopsy of suspicious lesion as well as endobronchial ultrasound-guided surveillance of hilar/mediastinal lymph nodes. I have explained about the complications like pneumothorax given her significant background emphysema which may require chest tube placement. Bleeding is another possibility, majority of times the bleeding is controlled with instillation of cold saline or diluted epinephrine but extremely rarely to bleeding may not be well controlled, which may result in prolonged intubation and possibly bronchial olvin placement to protect nonbleeding airway, convalescence in ICU, may even need IR embolization. There is also a very small chance of missing the lesion due to technical factors which may result in repeating the procedure. I also gave the option to wait until the PET CT scan is done as it is scheduled in the near future. Patient's next of kin verbalized understanding for the indication of the procedure, nature of the procedure, alternatives, complications, benefits and would want to proceed with biopsies while patient is in the hospital. (2) Emphysema lung: CT evidence of emphysema More than [id number] smoking history Currently on nicotine patch while in the hospital Patient will need PFTs as outpatient During discharge-patient has LAMA for daily use as well as albuterol as needed Consult Attestations Medical Necessity Statement: We will plan for bronchoscopy biopsies on Friday Coding Level of Care Code 74971 Diagnoses Pulmonary cavitary lesion J98.4 Emphysema lung J43.9 Time Spent (min) 56
--- NOTE | 2023-01-10 13:02 | XR_ITS ---
WS: [id number] TECHNIQUE: 2 views of the right hand CLINICAL INFORMATION: PRE MRI, METAL SHAVINGS IN HANDS COMPARISON: None. FINDINGS: Pre-MRI screening Vascular calcification. No radiopaque foreign bodies. Degenerative arthritis of the radiocarpal joint . Degenerative arthritis of the first CMC and STT. IMPRESSION: No radiopaque foreign bodies
--- NOTE | 2023-01-10 13:03 | XR_ITS ---
WS: [id number] TECHNIQUE: 2 views of the left hand CLINICAL INFORMATION: PRE MRI, METAL SHAVINGS IN HANDS COMPARISON: None. FINDINGS: Vascular calcification. No radiopaque foreign bodies. Degenerative narrowing of the radioca rpal joint. Degenerative arthritis at the first CMC and STT. IMPRESSION: No radiopaque foreign bodies.
--- NOTE | 2023-01-10 15:20 | PC.SOCIAL ---
IMM Update pg 2 of IMM updated and reviewed w/ patients son. Copy provided and copy dated, initialed and placed in chart.
[2023-01-10] MEDS: cholestyramine powder 4 gm Pkt PO (17:46)
[2023-01-10] MEDS: PHENobarbital 32.4 mg Tablet 64.8 MG PO (17:47)
[2023-01-11] VITALS (7 sets, daily range): BP systolic 111–126; BP diastolic 70–85; PULSE 73–94; RESP 16–22; TEMP 36.5–37; O2SAT 98–99
[2023-01-11] MEDS: heparin 5,000 unit/mL INJ 1 mL 5000 UNIT SUBCUT (02:49)
[2023-01-11 03:19] LABS: Add Urine Microscopic? YES; Bilirubin Urine Neg (Negative); Blood Urine 2+ (Negative); Glucose Urine UA Norm (Normal); Ketones Urine Negative (Negative); Leukocyte Esterase Urine 1+ (Negative); Nitrate Urine Negative (Negative); Protein Urine Neg (Negative); Specific Gravity, Urine 1.005 (1.005-1.030); Urine Appearance Hazy (CLEAR); Urine Color Amber (Yellow); Urobilinogen Urine 8 mg/dL (Negative); pH Urine 5 (5-7)
[2023-01-11 03:20] LABS: Add Urine Culture? Yes; Amorphous Sediment Urine 2+ /hpf; Bacteria Urine TRACE /hpf; RBC Urine RARE /hpf (0-2); WBC Urine RARE /hpf (0-5)
[2023-01-11 03:23] LABS: Urine Random Sodium 26 mmol/L
[2023-01-11 04:36] LABS: Basophils # 0.1 10^3/uL (0.0-0.1); Basophils % 0.9 %; Eosinophils # 0.2 10^3/uL (0.0-0.8); Eosinophils % 2.4 %; Hematocrit 24.7 % (37-53); Lymphocytes # 1.7 10^3/uL (0.8-4.8); Lymphocytes % 21.6 %; Mean Corpuscular HGB Conc 35.6 g/dL (30-55); Mean Corpuscular Hemoglobin 35.1 pg (27-33); Mean Corpuscular Volume 98.4 fl (82-101); Mean Platelet Volume 10.3 fL (7.4-10.4); Monocytes # 0.5 10^3/uL (0.2-0.9); Monocytes % 6.3 %; Neutrophils # 5.28 10^3/uL (1.8-7.7); Neutrophils % 66.9 %; Nucleated Red Blood Cells % 0 %; Platelet Count 150 10^3/cmm (157-399); Red Blood Count 2.51 10^6/uL (3.85-5.65); Red Cell Distribution Width 13.8 % (12.1-15.1)
[2023-01-11 04:56] LABS: Anion Gap 13.3 (5-19); Blood Urea Nitrogen 13 mg/dL (8-23); Calcium 8.2 mg/dL (8.5-10.5); Carbon Dioxide 23 mmol/L (22-29); Chloride 100 mmol/L (98-107); Glomerular Filtration Rate 83.4 mL/min (90-130); Glucose 87 mg/dL (65-115); Osmolality Calculated 275 mOsm/kg (285-295); Potassium 3.3 mmol/L (3.5-5.1); Sodium 133 mmol/L (136-145)
[2023-01-11] MEDS: piperacillin-tazobactam 3.375 GM in sodium chloride 0.9% (plus) 50 ML IV ×3 (04:59→21:47)
[2023-01-11] MEDS: vancomycin 1,000 MG in sodium chloride 0.9% 250 ML 250 MG IV ×2 (06:42→20:20)
[2023-01-11] MEDS: cholestyramine powder 4 gm Pkt PO ×2 (08:30→17:20)
[2023-01-11] MEDS: PHENobarbital 32.4 mg Tablet 64.8 MG PO ×2 (08:30→17:20)
[2023-01-11] MEDS: nicotine 21 mg Patch 1 PATCH TRANSDERMA (08:30)
[2023-01-11] MEDS: multivitamin therapeutic Tablet 1 TAB PO (08:31)
[2023-01-11] MEDS: folic acid 1 mg Tablet PO (08:31)
[2023-01-11] MEDS: thiamine 100 mg Tablet PO (08:31)
--- NOTE | 2023-01-11 08:35 | PM.PN ---
Subjective Subjective: Plan for bronchoscopy on Friday No overnight events Patient is eating breakfast Patient stating that he did not have any bowel movement since yesterday morning C. difficile panel is pending Afebrile Vitals/I&O/Wt Last Vital Signs Temp 98.6 F 01/11/23 04:00 Pulse 94 01/11/23 07:49 Resp 16 01/11/23 07:49 BP 123/75 01/11/23 07:49 Pulse Ox 98 01/11/23 07:49 O2 Del Method Room Air 01/11/23 07:49 01/10/23 01/11/23 01/11/23 22:59 06:59 14:59 Intake Total 780 / 1630 191.458 / 1821.458 Output Total 350 / 350 200 / 550 Balance 430 / 1280 -8.542 / 1271.458 Weight last 48 hrs Weight 72.847 kg Weight 71.866 kg Physical Exam Narrative: Patient was very pleasant cooperative He was able to tell me his name, day of the week, name of the president Eating breakfast Nonfocal neuro exam Signs of dehydration slowly improving No focal deficit GCS 15 S1, S2 Currently on room air Ram catheter in place Urinary Catheter Management: Ram: Cath Placed During This Visit: yes Reason for Continuing Indwelling Catheter: Other Urinary Catheter Date of Insertion: 01/09/23 Urinary Catheter Time of Insertion: 18:12 Data 01/11/23 04:12 01/11/23 04:12 Micro: Microbiology 01/09/23 18:17 Bacterial Antigens - Final Urine,Clean Catch A&P Assessment and plan (1) Alcoholic Korsakoff syndrome: (2) Encounter for assessment of decision-making capacity: (3) Alcohol abuse: (4) Protein calorie malnutrition: (5) Malnourished: (6) Failure to thrive: (7) Pulmonary cavitary lesion: (8) Skin ulcer: (9) Acute hyponatremia: (10) Acute hypokalemia: (11) Generalized weakness: (12) Unintentional weight loss: Plan We will replenish potassium today Continue IV fluid She is enjoying chocolate Ensure Plus He does have frontal lobe lacunar infarct which would cause memory deficit and personality change He also has Wernicke's Korsakoff syndrome Continue thiamine, folic acid Plan for bronchoscopy Friday Continue antibiotics Rule out TB Appreciate pulmonary recommendations Continue PT on daily basis Rule out C. difficile Status post skin biopsy, pathology results are pending Attestations Medical Necessity Statement*: Continue medical management Coding Level of Care Code Acute Code for Chg Fwd Diagnoses Alcoholic Korsakoff syndrome F10.96 Encounter for assessment of decision-making capacity Z01.89 Alcohol abuse F10.10 Protein calorie malnutrition E46 Malnourished E46 Failure to thrive Pulmonary cavitary lesion J98.4 Skin ulcer L98.499 Acute hyponatremia E87.1 Acute hypokalemia E87.6 Generalized weakness R53.1 Unintentional weight loss R63.4
[2023-01-11] MEDS: potassium chloride ER 20 mEq Tablet 40 MEQ PO (13:05)
[2023-01-11 14:14] LABS: Clostridium Difficile PCR NOT DETECTED (NOT DETECTED)
[2023-01-12] VITALS (8 sets, daily range): BP systolic 109–134; BP diastolic 66–83; PULSE 80–88; RESP 17–18; TEMP 36.4–37.2; O2SAT 96–99
[2023-01-12] MEDS: piperacillin-tazobactam 3.375 GM in sodium chloride 0.9% (plus) 50 ML IV ×3 (04:03→21:38)
[2023-01-12 04:09] LABS: Basophils # 0.1 10^3/uL (0.0-0.1); Basophils % 0.9 %; Eosinophils # 0.2 10^3/uL (0.0-0.8); Eosinophils % 2.3 %; Hematocrit 22.8 % (37-53); Lymphocytes # 1.4 10^3/uL (0.8-4.8); Mean Corpuscular HGB Conc 35.5 g/dL (30-55); Mean Corpuscular Hemoglobin 35.5 pg (27-33); Mean Platelet Volume 10.5 fL (7.4-10.4); Monocytes # 0.5 10^3/uL (0.2-0.9); Monocytes % 6.8 %; Neutrophils # 5.51 10^3/uL (1.8-7.7); Neutrophils % 69.7 %; Nucleated Red Blood Cells % 0.4 %; Platelet Count 158 10^3/cmm (157-399); Red Blood Count 2.28 10^6/uL (3.85-5.65); Red Cell Distribution Width 14.3 % (12.1-15.1)
[2023-01-12 04:32] LABS: Anion Gap 13.4 (5-19); Blood Urea Nitrogen 10 mg/dL (8-23); Calcium 7.8 mg/dL (8.5-10.5); Carbon Dioxide 21 mmol/L (22-29); Chloride 100 mmol/L (98-107); Glomerular Filtration Rate 95.6 mL/min (90-130); Glucose 105 mg/dL (65-115); Osmolality Calculated 271 mOsm/kg (285-295); Potassium 3.4 mmol/L (3.5-5.1); Sodium 131 mmol/L (136-145)
[2023-01-12 04:36] LABS: Magnesium 1.5 mg/dL (1.7-2.3)
[2023-01-12] MEDS: vancomycin 1,000 MG in sodium chloride 0.9% 250 ML 250 MG IV (07:54)
[2023-01-12] MEDS: thiamine 100 mg Tablet PO (09:21)
[2023-01-12] MEDS: PHENobarbital 32.4 mg Tablet 64.8 MG PO (09:21)
[2023-01-12] MEDS: multivitamin therapeutic Tablet 1 TAB PO (09:21)
[2023-01-12] MEDS: folic acid 1 mg Tablet PO (09:21)
[2023-01-12] MEDS: cholestyramine powder 4 gm Pkt PO ×2 (09:22→18:06)
[2023-01-12] MEDS: nicotine 21 mg Patch 1 PATCH TRANSDERMA (09:22)
--- NOTE | 2023-01-12 11:04 | PM.PN ---
Subjective Subjective: No overnight events Patient still mildly confused otherwise nonfocal neuro exam Afebrile no leukocytosis Skin biopsy is still pending Plan for bronchoscopy on Friday We will make him n.p.o. after midnight No signs of withdrawal I will discontinue CIWA protocol and phenobarbital Vitals/I&O/Wt Last Vital Signs Temp 97.6 F 01/12/23 08:00 Pulse 88 01/12/23 08:00 Resp 18 01/12/23 08:00 BP 119/75 01/12/23 08:00 Pulse Ox 96 01/12/23 08:00 O2 Del Method Room Air 01/12/23 08:00 01/11/23 01/12/23 01/12/23 22:59 06:59 14:59 Intake Total 780 / 1510 50 / 1560 780 / 780 Output Total 1050 / 1050 Balance 780 / 1510 -1000 / 510 780 / 780 Weight last 48 hrs Weight 75.206 kg Weight 72.847 kg Physical Exam Narrative: Signs of dehydration improving GCS 15 Awake alert Currently on room air Pleasant Ate breakfast Lethargic Poor memory Confabulates S1, S2 Urinary Catheter Management: Ram: Cath Placed During This Visit: yes Reason for Continuing Indwelling Catheter: Other Urinary Catheter Date of Insertion: 01/09/23 Urinary Catheter Time of Insertion: 18:12 Data 01/12/23 03:48 01/12/23 03:48 Micro: Microbiology 01/11/23 02:56 Urine Culture - Preliminary Urine,Clean Catch A&P Assessment and plan (1) Emphysema lung: (2) Left upper lobe pulmonary nodule: (3) Alcoholic Korsakoff syndrome: (4) Encounter for assessment of decision-making capacity: (5) Alcohol abuse: (6) Protein calorie malnutrition: (7) Malnourished: (8) Failure to thrive: (9) Pulmonary cavitary lesion: (10) Skin ulcer: (11) Acute hyponatremia: (12) Acute hypokalemia: (13) Generalized weakness: (14) Unintentional weight loss: Plan Plan for bronchoscopy tomorrow Rule out tuberculosis Cavitary lesion No fever or leukocytosis Skin biopsy results are pending Patient will need outpatient skin referral at the time of discharge Patient does not have capacity to make decision, most likely will need shelter placement because he lives in a trailer his home conditions are not safe to return home Full code Discontinue CIWA protocol Continue broad-spectrum antibiotics Attestations Medical Necessity Statement*: Bronchoscopy tomorrow Diagnoses Emphysema lung J43.9 Left upper lobe pulmonary nodule R91.1 Alcoholic Korsakoff syndrome F10.96 Encounter for assessment of decision-making capacity Z01.89 Alcohol abuse F10.10 Protein calorie malnutrition E46 Malnourished E46 Failure to thrive Pulmonary cavitary lesion J98.4 Skin ulcer L98.499 Acute hyponatremia E87.1 Acute hypokalemia E87.6 Generalized weakness R53.1 Unintentional weight loss R63.4
[2023-01-12 13:40] LABS: Fungitell 1-3-B Glucan Assay <31 pg/mL; Interpretation NEGATIVE
--- NOTE | 2023-01-12 15:25 | USCV_ITS ---
Xavi Jorge Age: 72 Gender: M : 1950 Exam Date: 01/12/2023 15:35 Ordering Phys: Lavelle Castellanos MD Technologist: Shar Powers Exam Location: [facility] – [place], [place] Indication: UA BP: / HR: Rhythm: Sinus Technical Quality: Very technically difficult study MEASUREMENTS (Male / Female) Normal Values FINDINGS Left Ventricle Right Ventricle Right Atrium Left Atrium Mitral Valve Aortic Valve Tricuspid Valve Pulmonic Valve Pericardium Aorta IVC CONCLUSIONS Cardiac structures could not be identified. Patient has no ultrasonic window. Study was aborted Dr Tamera Etienne MD [facility] (Electronically Signed) Final Date: 12 January 2023 21:08 S
[2023-01-12 18:41] LABS: Vancomycin Trough 28.3 ug/mL (10-15)
[2023-01-13] VITALS (16 sets, daily range): BP systolic 108–133; BP diastolic 38–87; PULSE 72–99; RESP 16–22; TEMP 36.2–37.2; O2SAT 94–100
[2023-01-13] MEDS: piperacillin-tazobactam 3.375 GM in sodium chloride 0.9% (plus) 50 ML IV ×2 (05:04→21:04)
[2023-01-13] MEDS: vancomycin 1,000 MG in sodium chloride 0.9% 250 ML 250 MG IV (06:09)
--- NOTE | 2023-01-13 06:34 | PC.NURSE ---
Patient taken to surgery via stretcher at 0620
--- NOTE | 2023-01-13 06:38 | PM.PN ---
Subjective Subjective: No overnight events Patient is intermittently confused otherwise nonfocal neuro exam Afebrile no leukocytosis Plan for bronchoscopy biopsy of left upper lobe nodule today Patient is n.p.o. after midnight No signs of withdrawal Vitals/I&O/Wt Last Vital Signs Temp 98.9 F 01/13/23 04:00 Pulse 87 01/13/23 05:36 Resp 18 01/13/23 04:00 BP 124/38 01/13/23 04:00 Pulse Ox 97 01/13/23 04:00 O2 Del Method Room Air 01/12/23 16:00 01/12/23 01/12/23 01/13/23 14:59 22:59 06:59 Intake Total 1260 / 1260 1010 / 2270 50 / 2320 Output Total 650 / 650 900 / 1550 Balance 1260 / 1260 360 / 1620 -850 / 770 Weight last 48 hrs Weight 167 lb 9.6 oz Weight 165 lb 12.8 oz Physical Exam Narrative: General: alert, NAD, at times confused HEENT: conj clear, EOMI, PERRL, mmm, Neck: supple, no meningismus Heme: no cervical LAP Respiratory: Inspection: No visible deformity of the chest wall Palpation: Trachea is mildly deviated to the right, bilateral symmetric expansion Percussion: Bilateral tympanic percussion note both anterior and posteriorly Auscultation: Mild diffuse end expiratory wheeze Cardiovascular: rrr, nl s1s2, no mrg Abdomen: soft, nt, nd, no r/g, bs+ Extremities: pulses +, no edema, no c/c : no CVA tenderness Skin: intact, no rash MSK: no back or neck pain Neurologic: grossly intact Urinary Catheter Management: Ram: Cath Placed During This Visit: yes Reason for Continuing Indwelling Catheter: Other Urinary Catheter Date of Insertion: 01/09/23 Urinary Catheter Time of Insertion: 18:12 Data 01/12/23 03:48 01/12/23 03:48 Other Labs: Radiology Impressions Chest/Abdomen/Pelvis CT 01/08/23 15:37 IMPRESSION: 1. 2.3 cm cavitary nodule in the left upper lobe. Consider non-emergent IMPRESSION: 1. No acute findings. 2. Indeterminate 1.7 cm right adrenal nodule. Consider 12 month follow-up adrenal CT. ([facility] 3. 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 References: Aristides JOE, et al. Management of Incidental Adrenal Masses: A White Paper of the ACR Incidental Findings Committee. J Am Heaven Radiol. 2017;14(8):9016-1720. Humerus CT 01/08/23 15:39 IMPRESSION: 1. Large cutaneous/dermal lesion in the distal left upper arm as described. Dermatology consultation recommended. 2. 2.3 cm cavitary left upper lobe nodule. Please refer to CT chest report. Head CT 01/08/23 19:00 IMPRESSION: 1. No definite evidence for metastatic disease. 2. 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 Laboratory Results WBC 7.90 10^3/uL (3.29-11.43) 01/12/23 03:48 RBC 2.28 10^6/uL (3.85-5.65) L 01/12/23 03:48 Hgb 8.10 g/dL (11.27-16.99) L 01/12/23 03:48 Hct 22.8 % (37-53) L 01/12/23 03:48 MCV 100.0 fl (82-101) 01/12/23 03:48 MCH 35.5 pg (27-33) H 01/12/23 03:48 MCHC 35.5 g/dL (30-55) 01/12/23 03:48 RDW 14.3 % (12.1-15.1) 01/12/23 03:48 Plt Count 158 10^3/cmm (157-399) 01/12/23 03:48 MPV 10.5 fL (7.4-10.4) H 01/12/23 03:48 Neut % (Auto) 69.7 % 01/12/23 03:48 Lymph % (Auto) 18.0 % 01/12/23 03:48 Lares % (Auto) 6.8 % 01/12/23 03:48 Eos % (Auto) 2.3 % 01/12/23 03:48 Baso % (Auto) 0.9 % 01/12/23 03:48 Neut # (Auto) 5.51 10^3/uL (1.8-7.7) 01/12/23 03:48 Lymph # (Auto) 1.4 10^3/uL (0.8-4.8) 01/12/23 03:48 Lares # (Auto) 0.5 10^3/uL (0.2-0.9) 01/12/23 03:48 Eos # (Auto) 0.2 10^3/uL (0.0-0.8) 01/12/23 03:48 Baso # (Auto) 0.1 10^3/uL (0.0-0.1) 01/12/23 03:48 Nucleated RBC % (auto) 0.4 % 01/12/23 03:48 Nucleated RBCs # 0.0 /100WBC 01/12/23 03:48 ESR 27 mm/hr (0-10) H 01/08/23 14:09 Sodium 131 mmol/L (136-145) L 01/12/23 03:48 Potassium 3.4 mmol/L (3.5-5.1) L 01/12/23 03:48 Chloride 100 mmol/L (98-107) 01/12/23 03:48 Carbon Dioxide 21 mmol/L (22-29) L 01/12/23 03:48 Anion Gap 13.4 (5-19) 01/12/23 03:48 BUN 10 mg/dL (8-23) 01/12/23 03:48 Creatinine 0.8 mg/dL (0.7-1.2) 01/12/23 03:48 GFR Calculation 95.6 mL/min (90-130) 01/12/23 03:48 Glucose 105 mg/dL (65-115) 01/12/23 03:48 Estimat Average Glucose 128 01/08/23 14:09 Hemoglobin A1c 6.1 % (4.0-6.0) H 01/08/23 14:09 Serum Osmolality 270 mOsm/kg (278-305) L 01/08/23 14:09 Calculated Osmolality 271 mOsm/kg (285-295) L 01/12/23 03:48 Uric Acid 9.8 mg/dL (3.4-7.0) H 01/08/23 14:09 Calcium 7.8 mg/dL (8.5-10.5) L 01/12/23 03:48 Phosphorus 3.7 mg/dL (2.5-4.5) 01/09/23 05:35 Magnesium 1.5 mg/dL (1.7-2.3) L 01/12/23 03:48 Total Bilirubin 0.8 mg/dL (0.15-1.2) 01/08/23 14:09 AST 31 U/L (0-40) 01/08/23 14:09 ALT 25 U/L (0-41) 01/08/23 14:09 Alkaline Phosphatase 118 U/L (40-130) 01/08/23 14:09 Ammonia 20 umol/L (16-60) 01/08/23 20:17 Troponin T Baseline 37 ng/L (0-15) H 01/08/23 14:09 Troponin T 120 Minute 29.05 ng/L (0-15) H 01/08/23 16:48 Delta Troponin T -7.95 ABS# (0-10) L 01/08/23 16:48 Troponin T Hi Sens 6Hr 30.00 ng/L (0-15) H 01/08/23 20:17 Troponin T Hi Sens 6Hr Delta -7.00 ng/L (0-12) L 01/08/23 20:17 C-Reactive Protein 28.9 mg/L (0.0-4.9) H 01/09/23 05:35 Total Protein 6.3 g/dL (6.6-8.7) L 01/08/23 14:09 Albumin 2.9 g/dL (3.5-5.2) L 01/08/23 14:09 Globulin 3.4 g/dL (1.3-4.6) 01/08/23 14:09 Triglycerides 117 mg/dL (0-150) 01/08/23 14:09 Cholesterol 177 mg/dL (0-200) 01/08/23 14:09 LDL Cholesterol, Calc 109 mg/dL (50-129) 01/08/23 14:09 HDL Cholesterol 45 mg/dL (60-100) L 01/08/23 14:09 LDL/HDL Ratio 2.42 RATIO (0.00-3.22) 01/08/23 14:09 Cholesterol/HDL Ratio 3.93 mg/dL (1.0-5.00) 01/08/23 14:09 Carcinoembryonic Ag 3.3 ng/mL (0.0-4.7) 01/08/23 14:09 CA 19-9 Antigen 15.77 U/mL (0-35) 01/08/23 14:09 PSA Screen 16.75 ng/mL (0-4) H 01/08/23 14:09 Vitamin B12 894 pg/mL (232-1245) 01/08/23 14:09 TSH 1.31 uIU/mL (0.27-4.20) 01/08/23 14:09 TSH Cancelled 01/08/23 14:09 Urine Color Tiff (Yellow) 01/11/23 02:56 Urine Appearance Hazy (CLEAR) A 01/11/23 02:56 Urine pH 5 (5-7) 01/11/23 02:56 Ur Specific [place] 1.005 (1.005-1.030) 01/11/23 02:56 Urine Protein Neg (Negative) 01/11/23 02:56 Urine Glucose (UA) Norm (Normal) 01/11/23 02:56 Urine Ketones Negative (Negative) 01/11/23 02:56 Urine Blood 2+ (Negative) H 01/11/23 02:56 Urine Nitrate Negative (Negative) 01/11/23 02:56 Urine Bilirubin Neg (Negative) 01/11/23 02:56 Urine Urobilinogen 8 mg/dL (Negative) H 01/11/23 02:56 Ur Leukocyte Esterase 1+ (Negative) H 01/11/23 02:56 Urine RBC Rare /hpf (0-2) 01/11/23 02:56 Urine WBC Rare /hpf (0-5) 01/11/23 02:56 Ur Squamous Epith Cells None /hpf (0-5) 01/11/23 02:56 Amorphous Sediment 2+ /hpf 01/11/23 02:56 Urine Bacteria Trace /hpf (NONE) 01/11/23 02:56 Ur Random Sodium 26 mmol/L 01/11/23 02:56 Vancomycin Trough 28.3 ug/mL (10-15) H* 01/12/23 18:08 C. difficile Tox (PCR) Not detected (NOT DETECTED) 01/10/23 10:30 Beta-(1,3)-D-Glucan <31 pg/mL 01/09/23 05:35 B-(1,3)-D-Glucan Intrp Negative 01/09/23 05:35 Micro: Microbiology 01/12/23 07:25 Gram Stain - Final Sputum - Expectorated Sputum 01/11/23 02:56 Urine Culture - Preliminary Urine,Clean Catch A&P Assessment and plan (1) Pulmonary cavitary lesion: With significant weight loss as well as smoking history-left upper lobe cavitary lesion is suspicious for malignancy However given his history of alcoholism-it could be lung abscess-currently he is being treated with vancomycin/Zosyn Patient is in airborne eshmfgjke-jmaa-sm for TB, fungal is sent and currently pending Patient is alert arousable and can carry on communication but at times he seems confused; there is a concern if he can make good decisions for himself. Family is actively involved in decision making. Extensive discussion regarding pulmonary cavitary lesions and the differentials including lung abscess, TB, fungal infections as well as possibility of malignancy were all discussed in detail. I have given options to treat with antibiotics at this point of time and repeat CT scan in 4 weeks to see if the left upper lobe lesion is still present then we can proceed with bronchoscopic biopsy. But family informed that patient may be discharged to assisted after this hospitalization and he is very noncompliant and may not come back for outpatient procedures. I also discussed at length about the ultimate goals of care regarding cancer treatments including radiation/surgery/chemotherapy for which family wanted to know the diagnosis and make decisions depending on the results. All in all family requested for biopsy while patient is in the hospital. For that I have given the option of going for robotic navigational guided biopsy of suspicious lesion as well as endobronchial ultrasound-guided surveillance of hilar/mediastinal lymph nodes. I have explained about the complications like pneumothorax given her significant background emphysema which may require chest tube placement. Bleeding is another possibility, majority of times the bleeding is controlled with instillation of cold saline or diluted epinephrine but extremely rarely to bleeding may not be well controlled, which may result in prolonged intubation and possibly bronchial olvin placement to protect nonbleeding airway, convalescence in ICU, may even need IR embolization. There is also a very small chance of missing the lesion due to technical factors which may result in repeating the procedure. I also gave the option to wait until the PET CT scan is done as it is scheduled in the near future. Patient's next of kin verbalized understanding for the indication of the procedure, nature of the procedure, alternatives, complications, benefits and would want to proceed with biopsies while patient is in the hospital. (2) Emphysema lung: CT evidence of emphysema More than [id number] smoking history Currently on nicotine patch while in the hospital Patient will need PFTs as outpatient During discharge-patient has LAMA for daily use as well as albuterol as needed Attestations Medical Necessity Statement*: Today he was undergo bronchoscopic biopsy and postprocedure if there are no complications-he is stable pulmonary standpoint Time Spent in Patient Care: Greater than 35 minutes (>than 50% of time spent in counselling and/or direct pt care on unit). Coding Level of Care Code 78747 Diagnoses Pulmonary cavitary lesion J98.4 Emphysema lung J43.9 Time Spent (min) 36
[2023-01-13] MEDS: sodium chloride 0.9% 1,000 ML 30 ML IV (07:00)
--- NOTE | 2023-01-13 07:16 | SC_ITS ---
WS: [id number] INTRAOPERATIVE TECHNIQUE: 3 Spot fluoroscopic images for intraoperative purposes. FLUOROSCOPY TIME: 47.6 seconds CLINICAL INFORMATION: ion COMPARISON: None. FINDINGS: Fluoroscopy obtained for intraoperative bronchoscopy guidance purposes. No visualized pneumothorax. IMPRESSION: Images obtained for intraoperative purposes.
[2023-01-13] MEDS: lidocaine 1% INJ 10 mL (per mL) XX (07:37)
[2023-01-13] MEDS: EPINEPHrine 1 mg/mL INJ XX (08:13)
--- NOTE | 2023-01-13 08:23 | P.OP_ITS ---
Operative Report Date of procedure: January 13, 2023 Pre-op diagnosis: Left lingular cavitary lesion suspected for malignancy Procedure done: Procedure performed : 11134 Dx Bronchoscope w/BAL 02814 Dx Bronchoscopy w/Bronchial or Endobronchial biopsy(s), single or multiple sites 89428 Bronch with computer image guided Navigational Bronchoscopy 11630 Bronchoscopy w/Transbronchial lung biopsy(s), single lobe 33852 Bronchoscopy w/Transbronchial needle aspiration biopsy(s), tracheal, main stem, and/or lobar bronchus 50964 Bronchoscopy w/ therapeutic aspiration of the tracheobronchial tree (clearance of airway secretions, removal of mucus plugs) 60592 EBUS Diag or Interven Peripheral lesion (radial EBUS) Surgeon: Kyle Ambriz MD Brief History: Xavi Jorge is a 72 year old male who lives in a trailer, daughter checks on him on daily basis, active smoker, drinks alcohol on daily basis, admitted to [facility] for generalized weakness recurrent falls and failure to thrive. Admission CT scan of the chest showing cavitary lesion 2.3 cm left upper lobe- patient was placed in airborne isolation-started vancomycin and Zosyn, work-up for cavitary lesion-TB QuantiFERON, fungal serology-pending Given his chronic alcoholism-he was started on multivitamin/thiamine-he has intermittent confusion-there is a concern for Wernicke's/Korsakoff syndrome; head CT did not reveal any mass lesions.? Head MRI showed small acute lacunar infarct in posterior right frontal lobe. Patient tells me that he smoked at least 1 pack a day for more than 40 years. Given significant smoking history-left upper lobe cavitary lesion suspicious for malignancy-hence pulmonary consult requested for possible biopsy.? Does not use any inhalers.He denies chest pain, shortness of breath however endorsing unintentional weight loss there is a concern if he can make decisions for himself.? Family is actively involved in decision making.? Extensive discussion regarding pulmonary cavitary lesions and the differentials including lung abscess, TB, fungal infections as well as possibility of malignancy were all discussed in detail.? I have given options to treat with antibiotics at this point of time and repeat CT scan in 4 weeks to see if the left upper lobe lesion is still present then we can proceed with bronchoscopic biopsy.? But family informed that patient may be discharged to senior living after this hospitalization and he is very noncompliant and may not come back for outpatient procedures. I also discussed at length about the ultimate goals of care regarding cancer treatments including radiation/surgery/chemotherapy for which family wanted to know the diagnosis and make decisions depending on the results. All in all family requested for biopsy while patient is in the hospital. Patient also agrees for the procedure. Today scheduled for robotic navigational guided biopsy of suspicious lesion as well as? endobronchial ultrasound-guided surveillance of hilar/mediastinal lymph nodes.? All the related complications including bleeding as well as pneumothorax were discussed. Patient and his family agreed to go ahead with the . procedure Procedure: Indication: CT scan showed 2.8 cm left upper lobe cavitary lesion. During preplanning using [employer] software-lesion appeared to be in superior segment of left lingula. Patient being a Chronic smoker -he has high risk for malignancy.10451 Dx Bronchoscope w/Washings or airway inspection Procedure performed : 12770 Dx Bronchoscope w/BAL 07833 Dx Bronchoscopy w/Bronchial or Endobronchial biopsy(s), single or multiple sites 43841 Bronch with computer image guided Navigational Bronchoscopy 58441 Bronchoscopy w/Transbronchial lung biopsy(s), single lobe 44043 Bronchoscopy w/Transbronchial needle aspiration biopsy(s), tracheal, main stem, and/or lobar bronchus 30584 Bronchoscopy w/ therapeutic aspiration of the tracheobronchial tree (clearance of airway secretions, removal of mucus plugs) 46765 EBUS Diag or Interven Peripheral lesion (radial EBUS) Description of the procedure: The procedure was explained to the patient and the consent was obtained. The patient was brought to the OR. Anesthesia: The patient underwent endotracheal intubation for general anesthesia. Local anesthesia: The distal trachea-Sandhya, right and left mainstem bronchi were anesthetized with 1% lidocaine, 3 mL. Following induction of general anesthesia, the flexible bronchoscope was advanced through the ET tube. The lower trachea mucosa appeared normal, no endotracheal lesion was seen. The sandhya was sharp. The sandhya, the right and left mainstem bronchi are anesthetized with 1% lidocaine. In a systematic manner bilateral bronchial tree was then examined. The bronchoscope was then introduced into the right mainstem bronchus. The right upper lobe, right middle lobe and right lower lobe bronchi were examined up to the third subsegmental level and no abnormalities were identified.Mucosa appeared normal with no endobronchial lesion, active bleeding or mucous plug.There were significant Small thick mucous plugs blocking distal airways which were suctioned right away.(50506). The bronchoscope was advanced into the left mainstem bronchus. The mucosa appeared normal with no endobronchial lesions. The left upper lobe, lingula and left lower lobe bronchi were examined up to the third subsegmental level. There were some mucus secretions in left lower lobe-which were suctioned right away.(92012). There is a pearly white endobronchial lesion in superior segment Of left lingula distal airway, Which started to bleed upon contact with bronchoscope. at Least 4 endobronchial forcep biopsies specimens (50786) from left lingula superior segment lesion were taken and placed in formalin for histopathology. After initial inspection as well as airway clearance with flexible bronchoscope(16723), ION robotic assisted navigational bronchoscope (66872) was introduced-and Superior segment of left lingula was accessed. After confirming the location with radial EBUS (82400), under the fluoroscopy guidance -we were able to obtain biopsies using fine-needle, forceps.There was some evidence of grade 2 bleeding-cold saline and diluted epinephrine were instilled. BAL was also taken from Superior segment of left lingula. After making sure there is no active bleeding navigational bronchoscope was retracted and introduced Endobronchial ultrasound EBUS (50780). With the help of EBUS, No significant hilar or mediastinal lymph nodes were identified. After making sure there is no active bleeding bronchoscope was retracted and procedure terminated. Samples: A. Endobronchial biopsies with of forceps in left lingula superior segment endobronchial lesion (89831) 1. Please 2. Using navigational bronchoscope-Into superior segment of left lingula lesion- 4 passes were made using forceps (77962); we do not have onsite pathology and so all the material was placed in formalin for histopathology 3. 3 passes for transbronchial biopsy were made using Forcep (30418); we do not have onsite pathology and so all the material was placed in formalin for histopathology. 2 passes with transbronchial forcep were placed in sterile specimen cup for tissue culture for bacterial, mycobacterial, fungal cultures 4.Bronchoscope was wedged at the entrance of the Superior segment of left lingula, 20 mL of saline was instilled and returned 13 mL of bronchoalveolar lavage (28611). The fluid was mixed with blood and specks of tissue. Samples for cell count, cytology, bacterial culture, AFB stain and culture, fungal cultures, Aspergillus antigen. Complications: None.The patient was extubated and brought to the PACU in stable condition. Postprocedure chest x-ray: There is no evidence of pneumothorax Disposition: Patient can be transferred back to medical floor in stable condition. He is clear to discharge from pulmonary Standpoint. Pt, and his son are aware that I am going to call them to update final biopsy results once available. Related Problem List Diagnoses (1) Left upper lobe pulmonary nodule: (2) Suspected lung cancer:
--- NOTE | 2023-01-13 08:38 | XRR_ITS ---
PROCEDURE INFORMATION: Exam: XR Chest Exam date and time: 01/13/2023 9:58 AM Age: 72 years old Clinical indication: Device placement; Other: Post bronch; Prior surgery; Surgery date: Post-operative (0-2 days) TECHNIQUE: Imaging protocol: Radiologic exam of the chest. Views: 1 view. COMPARISON: 1. CT chest abdpel w/*[id number] 01/08/2023 4:27 PM 2. CR XR chest 1V portable [id number] 01/08/2023 1:41 PM FINDINGS: Lungs: Stable 1.8 cm long left mid lung zone nodule with central lucency. Mild regional strandy opacities likely on the basis of recent procedure. Left basilar linear atelectasis versus scarring. Calcified right lower lung granuloma. No consolidation. Pleural spaces: Unremarkable. No pleural effusion. No pneumothorax. Heart/Mediastinum: Unremarkable. No cardiomegaly. Vasculature: Aortic arch atherosclerotic calcification. Bones/joints: Degenerative changes along the spine and left acromioclavicular joint. XR/XR chest 1V portable [id number] IMPRESSION: Known left pulmonary nodule with mild surrounding strandy opacities likely on the basis of recent procedure. No pulmonary consolidation or pneumothorax.
--- NOTE | 2023-01-13 08:56 | PC.OT ---
OT TREATMENT HELD THIS DATE DUE TO BRONCHOSCOPY IN A.M.
--- NOTE | 2023-01-13 09:11 | ANES.PREANE2 ---
Pre-Anesthetic Assessment Height/Weight: Height 1.93 m Weight 76.022 kg Temp Pulse Resp BP Pulse Ox O2 Del Method 97.1 F L 83 22 H 126/80 97 Room Air 01/13/23 09:00 01/13/23 09:00 01/13/23 09:00 01/13/23 09:00 01/13/23 09:00 01/13/23 09:00 Operation Date: 01/13/23 07:00 Proposed Procedures p Ion Robotic Assisted Bronchoscopy ION(Not Applicable) - Kyle Ambriz MD s Ebus(Not Applicable) - Kyle Ambriz MD Familial anesthetic complications: none Was Beta Alan taken within 24 hours: N/A Was Clonidine taken within 24 hours: N/A Last intake: Intake Last Liquid Date 01/12/23 Last Liquid Time 23:59 Last Solid Date 01/12/23 Last Solid Time 18:30 Social Alcohol and Tobacco Exam alert, oriented x 3 and regular rate & rhythm wheezing Airway Submandibular: within normal limits Cervical ROM: within normal limits Mallampati: Class II Dentition: false Pulmonary Chronic Obstructive Pulmonary Disease cavitary lung lesion, TB precautions CV/HEM Hypertension Metabolic Hyperlipidemia Failure to thrive Musc/skel Weakness Anesthetic Plan ASA status: 3 Anesthesia: General Medications/Allergies Home Medications Medication Instructions Recorded Confirmed Last Taken Type No Known Home Medications 01/08/23 01/08/23 Unknown History Allergies Allergy/AdvReac Type Severity Reaction Status Date / Time naproxen [From Aleve] Allergy Unknown Verified 01/08/23 14:06 Current Medications Generic Name Dose Route Start Last Admin Trade Name Freq PRN Reason Stop Dose Admin Cholestyramine Resin 4 gm 01/10/23 18:00 01/12/23 18:06 Cholestyramine Powder 4 Gm Pkt PO 4 gm BID NELI Administration Folic Acid 1 mg 01/09/23 09:00 01/12/23 09:21 Folic Acid 1 Mg Tablet PO 1 mg DAILY NELI Administration Heparin Sodium (Porcine) 5,000 unit 01/08/23 15:45 01/11/23 02:49 Heparin 5,000 Unit/Ml Inj 1 Ml SUBCUT 5,000 unit Q12H NELI Administration Piperacillin Sod/Tazobactam 50 mls @ 12.5 mls/hr 01/08/23 18:30 01/13/23 05:04 Sod 3.375 gm/ Sodium Chloride IV 50 mls/hr Q8H NELI Administration Vancomycin HCl 1,000 mg/ 250 mls @ 250 mls/hr 01/13/23 07:00 01/13/23 06:09 Sodium Chloride IV 250 mls/hr Q18H NELI Administration Sodium Chloride 1,000 mls @ 30 mls/hr 01/13/23 06:45 01/13/23 07:00 Sodium Chloride 0.9% IV 01/14/23 06:44 30 mls/hr .Q24H NELI Administration Multivitamins Therapeutic 1 tab 01/09/23 09:00 01/12/23 09:21 Multivitamin Therapeutic Tablet PO 1 tab DAILY NELI Administration Nicotine 1 patch 01/09/23 09:00 01/12/23 09:22 Nicotine 21 Mg Patch TRANSDERMA 1 patch DAILY NELI Administration Thiamine Mononitrate 100 mg 01/09/23 09:00 01/12/23 09:21 Thiamine 100 Mg Tablet PO 100 mg DAILY NELI Administration PFS Anesthesia Medical History Hyperlipidemia Hypertension Surgical History History of ankle surgery Family History Father Cancer throat Social History Smoking and tobacco/nicotine status: current every day tobacco/nicotine user Data Anesthesia 01/12/23 03:48 01/12/23 03:48 Short CBC 01/12/23 Range/Units 03:48 WBC 7.90 (3.29-11.43) 10^3/uL Hgb 8.10 L (11.27-16.99) g/dL Hct 22.8 L (37-53) % MCV 100.0 (82-101) fl Plt Count 158 (157-399) 10^3/cmm Neut % (Auto) 69.7 % Neut # (Auto) 5.51 (1.8-7.7) 10^3/uL BMP 01/12/23 03:48 Sodium 131 L Potassium 3.4 L Chloride 100 Carbon Dioxide 21 L BUN 10 Creatinine 0.8 Glucose 105 Calcium 7.8 L Microbiology 01/12/23 07:25 Gram Stain - Final Sputum - Expectorated Sputum 01/11/23 02:56 Urine Culture - Preliminary Urine,Clean Catch Cardiac Studies: Echocardiogram 01/12/23
[2023-01-13 09:12] LABS: Cyto Order Verification Order Verified
[2023-01-13 09:18] LABS: Color, Bronc Wash Red
[2023-01-13 09:19] LABS: Apprearance, Bronch Wash Cloudy (CLEAR)
[2023-01-13 13:08] LABS: PATH Referral Yes; Total Cells Counted Bronch 200
--- NOTE | 2023-01-13 14:16 | ANE.PACU2 ---
Inpatient post-anesthesia follow up: Airway intact: Yes Vital signs: Temperature 97.1 F Pulse Rate 83 Respiratory Rate 22 Blood Pressure 126/80 Pulse Oximetry 97 Oxygen Delivery Me thod Room Air Oxygen Flow Rate Fraction of Inspir ed Oxygen Hydration adequate: Yes Nausea and vomiting: No Pain level: 2 Mental status: Baseline
[2023-01-13 14:32] LABS: Quantiferon Mitogen >10.00 IU/mL; Quantiferon Nil 0.02 IU/mL; Quantiferon Plus TB1 0.01 IU/mL; Quantiferon TB Gold NEGATIVE (NEGATIVE)
[2023-01-13] MEDS: heparin 5,000 unit/mL INJ 1 mL 5000 UNIT SUBCUT (15:32)
[2023-01-13 15:33] LABS: Basophils # 0.1 10^3/uL (0.0-0.1); Basophils % 0.5 %; Eosinophils % 0.2 %; Hematocrit 28.1 % (37-53); Lymphocytes % 9.8 %; Mean Corpuscular HGB Conc 34.5 g/dL (30-55); Mean Corpuscular Hemoglobin 35.1 pg (27-33); Mean Corpuscular Volume 101.8 fl (82-101); Mean Platelet Volume 10.1 fL (7.4-10.4); Monocytes # 0.2 10^3/uL (0.2-0.9); Monocytes % 2.1 %; Neutrophils # 8.44 10^3/uL (1.8-7.7); Neutrophils % 85.8 %; Nucleated Red Blood Cells % 0 %; Platelet Count 208 10^3/cmm (157-399); Red Blood Count 2.76 10^6/uL (3.85-5.65); White Blood Count 9.84 10^3/uL (3.29-11.43)
--- NOTE | 2023-01-13 15:49 | P.PN_ITS ---
Subjective Subjective: Seen this morning. Patient knows his name where he is and who the president is. Able to tell me his date of as well. He states he would like to go home and not to a long term. He states he lives at home by himself and cannot care for himself. He also states he drives. He says he has breakfast. Family present at bedside. Family aware if I bed majority of the information patient gave me was accurate. Patient not interested in going to rehab at all. When I talked about rehab or long term he stated that I know they are going to do physical therapy technique which is pretty much walking and moving her arms back and forth which he demonstrated in the room while I was there. Family states that he has been drinking in the past and still drinks. They state that they do not need to see him in his living conditions he has. He does not like to seek medical care. Family is interested in long term placement so patient can be cared for better. Vitals/I&O/Wt Last Vital Signs Temp 97.1 F L 01/13/23 09:00 Pulse 83 01/13/23 09:00 Resp 22 H 01/13/23 09:00 BP 126/80 01/13/23 09:00 Pulse Ox 97 01/13/23 09:00 O2 Del Method Room Air 01/13/23 09:00 01/13/23 01/13/23 01/13/23 06:59 14:59 22:59 Intake Total 50 / 2320 2500 / 2500 Output Total 900 / 1550 0 / 0 Balance -850 / 770 2500 / 2500 Weight last 48 hrs Weight 76.022 kg Weight 75.206 kg Physical Exam Narrative: Signs of dehydration improving GCS 15 Awake alert Currently on room air Pleasant Poor memory Confabulates at times. S1, S2 Urinary Catheter Management: Ram: Cath Placed During This Visit: yes Reason for Continuing Indwelling Catheter: Other Urinary Catheter Date of Insertion: 01/09/23 Urinary Catheter Time of Insertion: 18:12 Data 01/13/23 15:05 01/12/23 03:48 Micro: Microbiology 01/13/23 08:03 Gram Stain - Final Lung Left Upper Lobe 01/12/23 07:25 Gram Stain - Final Sputum - Expectorated Sputum Sputum Culture - Preliminary 01/11/23 02:56 Urine Culture - Final Urine,Clean Catch A&P Assessment and plan (1) Emphysema lung: (2) Left upper lobe pulmonary nodule: (3) Alcoholic Korsakoff syndrome: (4) Encounter for assessment of decision-making capacity: (5) Alcohol abuse: (6) Protein calorie malnutrition: (7) Malnourished: (8) Failure to thrive: (9) Pulmonary cavitary lesion: (10) Skin ulcer: (11) Acute hyponatremia: (12) Acute hypokalemia: (13) Generalized weakness: (14) Unintentional weight loss: (15) Basal cell carcinoma: Plan Bronchoscopy performed today. Pearly white lesion seen. That was biopsied. No pneumothorax postprocedure. Plan to do another chest x-ray in a.m. to make sure no other normal has developed. At that point patient may be able to discharge in stable condition. TB panel negative. Ruled out. Skin biopsy results Show ulcerated basal cell carcinoma involving one edge and at the base.? Reexcision with uninvolved margins as warranted. Patient will need dermatology and oncology follow-up on discharge Warnicke Korsakoff psychosis Daily alcohol use Unintentional weight loss Generalized weakness Failure to thrive -Replete electrolytes as needed Patient is appropriate and I believe does have capacity to make medical decisions.? He does have some periods of confabulation and poor memory.? He states he would like to go home and not to a long term.? He may consider going to his son's house for short period of time as well.? Family states that if he is diagnosed with cancer they are unsure if patient would want to pursue any treatment for it.? And if he does not they will respect his decision. We will recommend protein supplements for patient Full code Discontinue CIWA protocol Continue broad-spectrum antibiotics Attestations Medical Necessity Statement*: dc in am Coding Level of Care Code 63541 Moderate Time for a total of 45 minutes, includes reviewing past or interval history, examining/interviewing patient, placing orders, counseling patient/family/other support, updating patient/family/other support, discussing plan of care with staff, communicating with other healthcare providers, documenting encounter and coordinating care Diagnoses Emphysema lung J43.9 Left upper lobe pulmonary nodule R91.1 Alcoholic Korsakoff syndrome F10.96 Encounter for assessment of decision-making capacity Z01.89 Alcohol abuse F10.10 Protein calorie malnutrition E46 Malnourished E46 Failure to thrive Pulmonary cavitary lesion J98.4 Skin ulcer L98.499 Acute hyponatremia E87.1 Acute hypokalemia E87.6 Generalized weakness R53.1 Unintentional weight loss R63.4 Basal cell carcinoma C44.91
[2023-01-13 15:50] LABS: Blood Urea Nitrogen 9 mg/dL (8-23); Calcium 8.4 mg/dL (8.5-10.5); Carbon Dioxide 22 mmol/L (22-29); Chloride 104 mmol/L (98-107); Glomerular Filtration Rate 73.9 mL/min (90-130); Glucose 138 mg/dL (65-115); Osmolality Calculated 283 mOsm/kg (285-295); Sodium 136 mmol/L (136-145)
[2023-01-13] MEDS: cholestyramine powder 4 gm Pkt PO (18:02)
--- NOTE | 2023-01-13 18:09 | PC.NURSE ---
Patient family expressed to this nurse they would like for patient to go to group home upon discharge and family said patient is agreeable. This nurse went to patients bedside to confirm that. Patient agreed he would prefer to attend a group home for a short amount of time.
[2023-01-14] VITALS (9 sets, daily range): BP systolic 101–126; BP diastolic 65–79; PULSE 74–87; RESP 16–17; TEMP 36.3–37; O2SAT 97–99; BMI 19.3
[2023-01-14] MEDS: vancomycin 1,000 MG in sodium chloride 0.9% 250 ML 250 MG IV ×2 (01:10→18:44)
[2023-01-14] MEDS: heparin 5,000 unit/mL INJ 1 mL 5000 UNIT SUBCUT ×2 (02:40→16:41)
[2023-01-14] MEDS: piperacillin-tazobactam 3.375 GM in sodium chloride 0.9% (plus) 50 ML IV ×3 (06:08→21:39)
[2023-01-14] MEDS: multivitamin therapeutic Tablet 1 TAB PO (08:55)
[2023-01-14] MEDS: folic acid 1 mg Tablet PO (08:55)
[2023-01-14] MEDS: cholestyramine powder 4 gm Pkt PO ×2 (08:55→17:20)
[2023-01-14] MEDS: thiamine 100 mg Tablet PO (08:55)
--- NOTE | 2023-01-14 08:57 | PM.PN ---
Subjective Subjective: -Seen patient in his room -He is lying on his bed-and tearful-discussed at length about his state of mind-he spoke with the sense of regret for being an alcoholic and being isolated from family. His son is building a house for him and he agreed to stay in halfway for few days and then go back to his family. -I have mentioned that we do not have his pathology results yet-patient asked several questions regarding treatment options -I have informed that once we have the biopsy results available-if it is a cancer-we need to do PET CT scan for staging as well as pulmonary function tests. Once all the workup is completed-we will be able to stage his cancer and decide treatment options like surgery/radiation/chemotherapy. -Patient expressed wishes that he does not want chemotherapy but would consider SBRT or surgery if it is stage I -I have informed him that once we get pathology results-I am going to discussed with patient and his son and will arrange for further workup as well as oncology follow-up as outpatient Medications: Reviewed: Yes Vitals/I&O/Wt Last Vital Signs Temp 97.5 F L 01/14/23 03:43 Pulse 74 01/14/23 05:21 Resp 16 01/14/23 03:43 BP 114/74 01/14/23 03:43 Pulse Ox 97 01/14/23 03:43 O2 Del Method Room Air 01/14/23 03:43 01/13/23 01/14/23 01/14/23 22:59 06:59 14:59 Intake Total 120 / 2620 300 / 2920 Output Total 500 / 500 Balance 120 / 2620 -200 / 2420 Weight last 48 hrs Weight 159 lb 2 oz Weight 167 lb 9.6 oz Physical Exam Narrative: General: alert, NAD, at times confused HEENT: conj clear, EOMI, PERRL, mmm, Neck: supple, no meningismus Heme: no cervical LAP Respiratory: Inspection: No visible deformity of the chest wall Palpation: Trachea is mildly deviated to the right, bilateral symmetric expansion Percussion: Bilateral tympanic percussion note both anterior and posteriorly Auscultation: Mild diffuse end expiratory wheeze Cardiovascular: rrr, nl s1s2, no mrg Abdomen: soft, nt, nd, no r/g, bs+ Extremities: pulses +, no edema, no c/c : no CVA tenderness Skin: intact, no rash MSK: no back or neck pain Neurologic: grossly intact Urinary Catheter Management: Ram: Cath Placed During This Visit: yes Reason for Continuing Indwelling Catheter: Other Urinary Catheter Date of Insertion: 01/09/23 Urinary Catheter Time of Insertion: 18:12 Data 01/13/23 15:05 01/15/23 05:45 Other Labs: Radiology Impressions Chest/Abdomen/Pelvis CT 01/08/23 15:37 IMPRESSION: 1. 2.3 cm cavitary nodule in the left upper lobe. Consider non-emergent IMPRESSION: 1. No acute findings. 2. Indeterminate 1.7 cm right adrenal nodule. Consider 12 month follow-up adrenal CT. (Reference: Aristides) 3. 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 References: Aristides JOE, et al. Management of Incidental Adrenal Masses: A White Paper of the ACR Incidental Findings Committee. J Am [facility] Radiol. 2017;14(8):4190-[address]774. Humerus CT 01/08/23 15:39 IMPRESSION: 1. Large cutaneous/dermal lesion in the distal left upper arm as described. Dermatology consultation recommended. 2. 2.3 cm cavitary left upper lobe nodule. Please refer to CT chest report. Head CT 01/08/23 19:00 IMPRESSION: 1. No definite evidence for metastatic disease. 2. 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 Chest X-Ray 01/14/23 09:09 IMPRESSION: No acute cardiopulmonary disease. Laboratory Results WBC 9.84 10^3/uL (3.29-11.43) 01/13/23 15:05 RBC 2.76 10^6/uL (3.85-5.65) L 01/13/23 15:05 Hgb 9.70 g/dL (11.27-16.99) L 01/13/23 15:05 Hct 28.1 % (37-53) L 01/13/23 15:05 MCV 101.8 fl (82-101) H 01/13/23 15:05 MCH 35.1 pg (27-33) H 01/13/23 15:05 MCHC 34.5 g/dL (30-55) 01/13/23 15:05 RDW 15.0 % (12.1-15.1) 01/13/23 15:05 Plt Count 208 10^3/cmm (157-399) 01/13/23 15:05 MPV 10.1 fL (7.4-10.4) 01/13/23 15:05 Neut % (Auto) 85.8 % 01/13/23 15:05 Lymph % (Auto) 9.8 % 01/13/23 15:05 [place] % (Auto) 2.1 % 01/13/23 15:05 Eos % (Auto) 0.2 % 01/13/23 15:05 Baso % (Auto) 0.5 % 01/13/23 15:05 Neut # (Auto) 8.44 10^3/uL (1.8-7.7) H 01/13/23 15:05 Lymph # (Auto) 1.0 10^3/uL (0.8-4.8) 01/13/23 15:05 [place] # (Auto) 0.2 10^3/uL (0.2-0.9) 01/13/23 15:05 Eos # (Auto) 0.0 10^3/uL (0.0-0.8) 01/13/23 15:05 Baso # (Auto) 0.1 10^3/uL (0.0-0.1) 01/13/23 15:05 Nucleated RBC % (auto) 0 % 01/13/23 15:05 Nucleated RBCs # 0.0 /100WBC 01/13/23 15:05 ESR 27 mm/hr (0-10) H 01/08/23 14:09 Sodium 133 mmol/L (136-145) L 01/15/23 05:45 Potassium 4.1 mmol/L (3.5-5.1) 01/15/23 05:45 Chloride 104 mmol/L (98-107) 01/15/23 05:45 Carbon Dioxide 20 mmol/L (22-29) L 01/15/23 05:45 Anion Gap 13.1 (5-19) 01/15/23 05:45 BUN 8 mg/dL (8-23) 01/15/23 05:45 Creatinine 0.8 mg/dL (0.7-1.2) 01/15/23 05:45 GFR Calculation 95.6 mL/min (90-130) 01/15/23 05:45 Glucose 86 mg/dL (65-115) 01/15/23 05:45 Estimat Average Glucose 128 01/08/23 14:09 Hemoglobin A1c 6.1 % (4.0-6.0) H 01/08/23 14:09 Serum Osmolality 270 mOsm/kg (278-305) L 01/08/23 14:09 Calculated Osmolality 274 mOsm/kg (285-295) L 01/15/23 05:45 Uric Acid 9.8 mg/dL (3.4-7.0) H 01/08/23 14:09 Calcium 8.1 mg/dL (8.5-10.5) L 01/15/23 05:45 Phosphorus 3.7 mg/dL (2.5-4.5) 01/09/23 05:35 Magnesium 1.7 mg/dL (1.7-2.3) 01/15/23 05:45 Total Bilirubin 0.8 mg/dL (0.15-1.2) 01/08/23 14:09 AST 31 U/L (0-40) 01/08/23 14:09 ALT 25 U/L (0-41) 01/08/23 14:09 Alkaline Phosphatase 118 U/L (40-130) 01/08/23 14:09 Ammonia 20 umol/L (16-60) 01/08/23 20:17 Troponin T Baseline 37 ng/L (0-15) H 01/08/23 14:09 Troponin T 120 Minute 29.05 ng/L (0-15) H 01/08/23 16:48 Delta Troponin T -7.95 ABS# (0-10) L 01/08/23 16:48 Troponin T Hi Sens 6Hr 30.00 ng/L (0-15) H 01/08/23 20:17 Troponin T Hi Sens 6Hr Delta -7.00 ng/L (0-12) L 01/08/23 20:17 C-Reactive Protein 28.9 mg/L (0.0-4.9) H 01/09/23 05:35 Total Protein 6.3 g/dL (6.6-8.7) L 01/08/23 14:09 Albumin 2.9 g/dL (3.5-5.2) L 01/08/23 14:09 Globulin 3.4 g/dL (1.3-4.6) 01/08/23 14:09 Triglycerides 117 mg/dL (0-150) 01/08/23 14:09 Cholesterol 177 mg/dL (0-200) 01/08/23 14:09 LDL Cholesterol, Calc 109 mg/dL (50-129) 01/08/23 14:09 HDL Cholesterol 45 mg/dL (60-100) L 01/08/23 14:09 LDL/HDL Ratio 2.42 RATIO (0.00-3.22) 01/08/23 14:09 Cholesterol/HDL Ratio 3.93 mg/dL (1.0-5.00) 01/08/23 14:09 Carcinoembryonic Ag 3.3 ng/mL (0.0-4.7) 01/08/23 14:09 CA 19-9 Antigen 15.77 U/mL (0-35) 01/08/23 14:09 PSA Screen 16.75 ng/mL (0-4) H 01/08/23 14:09 Vitamin B12 894 pg/mL (232-1245) 01/08/23 14:09 TSH 1.31 uIU/mL (0.27-4.20) 01/08/23 14:09 TSH Cancelled 01/08/23 14:09 Urine Color Tiff (Yellow) 01/11/23 02:56 Urine Appearance Hazy (CLEAR) A 01/11/23 02:56 Urine pH 5 (5-7) 01/11/23 02:56 Ur Specific [place] 1.005 (1.005-1.030) 01/11/23 02:56 Urine Protein Neg (Negative) 01/11/23 02:56 Urine Glucose (UA) Norm (Normal) 01/11/23 02:56 Urine Ketones Negative (Negative) 01/11/23 02:56 Urine Blood 2+ (Negative) H 01/11/23 02:56 Urine Nitrate Negative (Negative) 01/11/23 02:56 Urine Bilirubin Neg (Negative) 01/11/23 02:56 Urine Urobilinogen 8 mg/dL (Negative) H 01/11/23 02:56 Ur Leukocyte Esterase 1+ (Negative) H 01/11/23 02:56 Urine RBC Rare /hpf (0-2) 01/11/23 02:56 Urine WBC Rare /hpf (0-5) 01/11/23 02:56 Ur Squamous Epith Cells None /hpf (0-5) 01/11/23 02:56 Amorphous Sediment 2+ /hpf 01/11/23 02:56 Urine Bacteria Trace /hpf (NONE) 01/11/23 02:56 Urine Osmolality 414 mOsm/kg (50-1200) 01/11/23 02:56 Ur Random Sodium 26 mmol/L 01/11/23 02:56 Bronch Specimen Source Left upper lung bal 01/13/23 08:03 Bronchial Fluid Color Red 01/13/23 08:03 Bronchial Fluid Appearance Cloudy (CLEAR) 01/13/23 08:03 Bronch Cells Counted 200 01/13/23 08:03 Bronchial Neutrophils 61.00 % (0.9-2.3) H 01/13/23 08:03 Bronchial Lymphocytes 15.00 % (10.71-12.91) H 01/13/23 08:03 Bronchial Macrophages 24.00 % (83.6-86.8) L 01/13/23 08:03 Bronchial Diff Comment Yes 01/13/23 08:03 Vancomycin Trough 28.3 ug/mL (10-15) H* 01/12/23 18:08 C. difficile Tox (PCR) Not detected (NOT DETECTED) 01/10/23 10:30 A. galactomannan Ag EIA Not detected 01/09/23 05:35 A. galactomannan Ag Idx <0.50 01/09/23 05:35 MRSA (PCR) TNP 01/11/23 02:56 TB (QFT) Gold In Tube Negative (NEGATIVE) 01/09/23 10:13 TB Test (QFT) Nil 0.02 IU/mL 01/09/23 10:13 TB Test (QFT) Mitogen >10.00 IU/mL 01/09/23 10:13 TB Test Mitogen - Nil 0.01 IU/mL 01/09/23 10:13 TB Test TB -Nil 0.00 IU/mL 01/09/23 10:13 Beta-(1,3)-D-Glucan <31 pg/mL 01/09/23 05:35 B-(1,3)-D-Glucan Intrp Negative 01/09/23 05:35 Micro: Microbiology 01/08/23 18:42 Blood Culture - Final Blood NO GROWTH AFTER 5 DAYS 01/08/23 18:38 Blood Culture - Final Blood NO GROWTH AFTER 5 DAYS 01/13/23 08:03 Gram Stain - Final Lung Left Upper Lobe 01/12/23 07:25 Gram Stain - Final Sputum - Expectorated Sputum Sputum Culture - Preliminary 01/11/23 02:56 Urine Culture - Final Urine,Clean Catch A&P Assessment and plan (1) Left upper lobe pulmonary nodule: (2) Suspected lung cancer: (3) Pulmonary cavitary lesion: With significant weight loss as well as smoking history-left upper lobe cavitary lesion is suspicious for malignancy However given his history of alcoholism-it could be lung abscess-currently he is being treated with vancomycin/Zosyn Patient is in airborne [id number] for TB, fungal is sent and currently pending Patient is alert arousable and can carry on communication but at times he seems confused; Patient underwent robotic bronchoscopic guided biopsy of left upper lobe lesion 01/13/2023-currently awaiting pathology results; endobronchial ultrasound did not show any hilar/mediastinal lymph nodes (4) Emphysema lung: CT evidence of emphysema More than 48-[id number] smoking history Currently on nicotine patch while in the hospital Patient will need PFTs as outpatient During discharge-patient has LAMA for daily use as well as albuterol as needed (5) Goals of care, counseling/discussion: Attestations Medical Necessity Statement*: Currently awaiting placement-deferred to hospitalist Coding Level of Care Code 15021 Diagnoses Left upper lobe pulmonary nodule R91.1 Suspected lung cancer R68.89 Pulmonary cavitary lesion J98.4 Emphysema lung J43.9 Goals of care, counseling/discussion Z71.89 Time Spent (min) 37
--- NOTE | 2023-01-14 09:09 | XRR_ITS ---
PROCEDURE INFORMATION: Exam: XR Chest Exam date and time: 01/14/2023 10:20 AM Age: 72 years old Clinical indication: Shortness of breath; Additional info: R/O pneumothorax TECHNIQUE: Imaging protocol: Radiologic exam of the chest. Views: 1 view. COMPARISON: CR (CHEST, ) 01/13/2023 9:58 AM FINDINGS: Lungs: Small cavitary nodular density in the lateral left mid lung. Pleural spaces: Unremarkable. No pleural effusion. No pneumothorax. Heart/Mediastinum: Unremarkable. No cardiomegaly. Bones/joints: Unremarkable. XR/XR chest 1V portable [id number] IMPRESSION: No acute cardiopulmonary disease.
--- NOTE | 2023-01-14 13:44 | PM.PN ---
Subjective Subjective: Seen this morning. Patient in good spirits. Chest x-ray reviewed. Family requesting to have excision of basal cell carcinoma done in the hospital. However discussed with our general surgeon who states that we will unable to do it here since patient might require a plastic surgeon due to the extensive area involved and may require a flap. This will have to be set up as an outpatient. Patient scored 8 out of 13 on the colin assessment today. Patient would benefit from 24-hour supervision to live safely. Vitals/I&O/Wt Last Vital Signs Temp 97.6 F 01/14/23 12:00 Pulse 78 01/14/23 12:00 Resp 16 01/14/23 12:00 BP 103/68 01/14/23 12:00 Pulse Ox 99 01/14/23 12:00 O2 Del Method Room Air 01/14/23 12:00 01/13/23 01/14/23 01/14/23 22:59 06:59 14:59 Intake Total 120 / 2620 300 / 2920 530 / 530 Output Total 500 / 500 200 / 200 Balance 120 / 2620 -200 / 2420 330 / 330 Weight last 48 hrs Weight 72.178 kg Weight 76.022 kg Physical Exam Narrative: Signs of dehydration improving GCS 15 Awake alert Currently on room air Pleasant Poor memory Confabulates at times. S1, S2 Urinary Catheter Management: Ram: Cath Placed During This Visit: yes Reason for Continuing Indwelling Catheter: Other Urinary Catheter Date of Insertion: 01/09/23 Urinary Catheter Time of Insertion: 18:12 Data 01/13/23 15:05 01/13/23 15:05 Micro: Microbiology 01/12/23 07:25 Gram Stain - Final Sputum - Expectorated Sputum Sputum Culture - Final 01/13/23 08:03 Gram Stain - Final Lung Left Upper Lobe Bronchial Washings Culture - Preliminary 01/08/23 18:42 Blood Culture - Final Blood NO GROWTH AFTER 5 DAYS 01/08/23 18:38 Blood Culture - Final Blood NO GROWTH AFTER 5 DAYS 01/11/23 02:56 Urine Culture - Final Urine,Clean Catch A&P Assessment and plan (1) Emphysema lung: (2) Left upper lobe pulmonary nodule: (3) Alcoholic Korsakoff syndrome: (4) Encounter for assessment of decision-making capacity: (5) Alcohol abuse: (6) Protein calorie malnutrition: (7) Malnourished: (8) Failure to thrive: (9) Pulmonary cavitary lesion: (10) Skin ulcer: (11) Acute hyponatremia: (12) Acute hypokalemia: (13) Generalized weakness: (14) Unintentional weight loss: (15) Basal cell carcinoma: Plan Bronchoscopy performed 01/15 Pearly white lesion seen. That was biopsied. No pneumothorax postprocedure. Repeat x-ray done today did not show a pneumothorax. TB panel negative. Ruled out. Skin biopsy results Show ulcerated basal cell carcinoma involving one edge and at the base.? Reexcision with uninvolved margins as warranted. Patient will need dermatology and oncology and plastic surgery follow-up on discharge Warnicke Korsakoff psychosis Daily alcohol use Unintentional weight loss Generalized weakness Failure to thrive -Replete electrolytes as needed For the time that I have seen the patient he has been appropriate and I believe has demonstrated at some level that he has capacity to make his decisions. However on Kells assessment he has scored 8 out of 13 and it is recommended that he have 24-hour supervision in order to live alone safely. Based on that I believe at this point it is a safety issue for the patient to return home alone. He will either need to have a family member with him at all times or possibly go to a long term if that is not possible. Discussed the above with family and case planner. Have consulted psychiatry for assessment of capacity. We will recommend protein supplements for patient Full code Discontinue CIWA protocol Continue broad-spectrum antibiotics Attestations Medical Necessity Statement*: Patient is pending placement. Disposition is yet to be decided. Psychiatry consult placed to assess for capacity at this time. Diagnoses Emphysema lung J43.9 Left upper lobe pulmonary nodule R91.1 Alcoholic Korsakoff syndrome F10.96 Encounter for assessment of decision-making capacity Z01.89 Alcohol abuse F10.10 Protein calorie malnutrition E46 Malnourished E46 Failure to thrive Pulmonary cavitary lesion J98.4 Skin ulcer L98.499 Acute hyponatremia E87.1 Acute hypokalemia E87.6 Generalized weakness R53.1 Unintentional weight loss R63.4 Basal cell carcinoma C44.91
[2023-01-14 17:13] LABS: Osmolality Urine 414 mOsm/kg (50-1200)
[2023-01-14 18:54] LABS: Aspergillus AG,EIA,Serum NOT DETECTED; Aspergillus Galactomannan Inde <0.50
--- NOTE | 2023-01-14 23:29 | P.NPUCON_ITS ---
Providers/Reason for Consult Consulting Physican/Specialty*: Kyle Valadez MD Reason for Consult*: cognitive changes/alcohol consumption Attending Physician: Ana Elizabeth MD Primary Care Provider: GUNNAR Rodriguez Psych Consult HPI History of Present Illness Xavi Jorge is a 72 year old male admitted on 01/08/2023 with loss of weight, difficulties with maintaining self-care, weakness in his limbs, malnutrition, consulted due to concern about living independently. There was a small acute lacunar infarct in the posterior RIGHT frontal lobe and moderate cerebral atrophy on recent MRI. The patient had denied any mood symptoms. He had reported no depression. He had reported no past history or current history of wanting to hurt himself or others. He had acknowledged that he did have difficulties moving around and stated that he would like to get further assistance and was agreeable to attending a retirement at which time he would be planning on living with his son. The patient had minimized the significance of his drinking in actuality he had actually minimized having consumed alcohol at all despite family members reporting separately that he had been drinking on a daily basis for several years. The patient's family had reported that the patient had struggled with having periods of being lucid while at other times being very confused. An Occupational Therapy evaluation had supported that the patient would require 24-hour supervision and the patient did not appear to be against this idea. The patient had stated that he would not be opposed to having someone monitor his medications and assist with activities of daily living. He minimized any problems with sleep or appetite but did state that he had struggled with oral intake as he had not been able to cook for himself. Psychiatric history: None family psychiatric history: None reported Medical history: see above Surgical History: see above Allergies: naproxen Drug and Alcohol hx: denies illicit drug use, hx of extensive alcohol use on daily basis per family, no reports of alcohol withdrawal symptoms per family. Social history: He reports that he was raised in [place] by his parents. 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 He states that he has been previously 3 times and is currently. He reports that he lives alone on one of his children's properties. He reports having pets and a few friends. He reports having plans to live with his son lives nearby. He denied any history of sexual physical or emotional abuse in his lifetime. Meds Home Medications and Allergies Home Medications Medication Instructions Recorded Confirmed Last Taken Type folic acid 1 mg tablet 1 mg PO DAILY #30 tabs 01/15/23 Unknown Rx multivitamin with folic acid 400 1 tab PO DAILY #30 tabs 01/15/23 Unknown Rx mcg tablet (Thera) thiamine mononitrate (vit B1) 100 100 mg PO DAILY #30 tabs 01/15/23 Unknown Rx mg tablet (Vitamin B-1 (mononitrate)) Allergies Allergy/AdvReac Type Severity Reaction Status Date / Time naproxen [From Aleve] Allergy Unknown Verified 01/08/23 14:06 Current Medications Current Medications Generic Name Dose Route Start Last Admin Trade Name Freq PRN Reason Stop Dose Admin Cholestyramine Resin 4 gm 01/10/23 18:00 01/14/23 17:20 Cholestyramine Powder 4 Gm Pkt PO 4 gm BID NELI Administration Folic Acid 1 mg 01/09/23 09:00 01/14/23 08:55 Folic Acid 1 Mg Tablet PO 1 mg DAILY NELI Administration Heparin Sodium (Porcine) 5,000 unit 01/08/23 15:45 01/14/23 16:41 Heparin 5,000 Unit/Ml Inj 1 Ml SUBCUT 5,000 unit Q12H NELI Administration Piperacillin Sod/Tazobactam 50 mls @ 12.5 mls/hr 01/08/23 18:30 01/14/23 21:39 Sod 3.375 gm/ Sodium Chloride IV 12.5 mls/hr Q8H NELI Administration Vancomycin HCl 1,000 mg/ 250 mls @ 250 mls/hr 01/13/23 07:00 01/14/23 19:50 Sodium Chloride IV Infused Q18H NELI Infusion Multivitamins Therapeutic 1 tab 01/09/23 09:00 01/14/23 08:55 Multivitamin Therapeutic Tablet PO 1 tab DAILY NELI Administration Nicotine 1 patch 01/09/23 09:00 01/14/23 08:55 Nicotine 21 Mg Patch TRANSDERMA Not Given DAILY NELI Thiamine Mononitrate 100 mg 01/09/23 09:00 01/14/23 08:55 Thiamine 100 Mg Tablet PO 100 mg DAILY NELI Administration PFSH NPU PFSH: Medical History Hyperlipidemia Hypertension Surgical History History of ankle surgery Family History Father Cancer throat Social History Smoking and tobacco/nicotine status: current every day tobacco/nicotine user Mental Status Exam MSE Comments: Thin white male who appeared his stated age who was alert and oriented to person place year month but not date or day of the week. There was no evidence of psychomotor agitation or psychomotor retardation. He was friendly and cooperative on interview. His speech was fluent and normal in regards to rate and prosody with no increase or decrease in latency. His thought process was linear logical and goal-directed. His thought content showed no evidence of active homicidal or suicidal ideation. He did not appear to be responding to internal stimuli. His attention span appeared fair. There is no evidence of any abnormal involuntary motor movements tics or tremors appreciated. Registration of 3 words was 3 out of 3. His recall after 5 minutes of the 3 words was 2 out of 3. There was no evidence of anomia or apraxia. His ability to abstract regarding similarities and differences appeared fair. His insight was limited. His judgment appeared fair. His impulse control appeared adequate. Vitals/I&O/Wt Last Vital Signs Temp 97.8 F 01/14/23 20:00 Pulse 87 01/14/23 22:00 Resp 17 01/14/23 20:00 BP 123/73 01/14/23 20:00 Pulse Ox 99 01/14/23 20:00 O2 Del Method Room Air 01/14/23 20:00 01/14/23 01/14/23 01/15/23 14:59 22:59 06:59 Intake Total 530 / 530 780 / 1310 Output Total 200 / 200 800 / 1000 Balance 330 / 330 -20 / 310 Weight last 48 hrs Weight 72.178 kg Weight 76.022 kg Physical Exam Urinary Catheter Management: Ram: Cath Placed During This Visit: yes Reason for Continuing Indwelling Catheter: Other Urinary Catheter Date of Insertion: 01/09/23 Urinary Catheter Time of Insertion: 18:12 Data NPU 01/13/23 15:05 01/15/23 05:45 Micro: Microbiology 01/13/23 08:03 Mycobacterial Smear - Preliminary Sputum - Endotracheal Tube Aspirate 01/12/23 07:25 Gram Stain - Final Sputum - Expectorated Sputum Sputum Culture - Final 01/13/23 08:03 Gram Stain - Final Lung Left Upper Lobe Bronchial Washings Culture - Preliminary 01/08/23 18:42 Blood Culture - Final Blood NO GROWTH AFTER 5 DAYS 01/08/23 18:38 Blood Culture - Final Blood NO GROWTH AFTER 5 DAYS Microbiology 01/13/23 08:03 Sputum - Endotracheal Tube Aspirate Mycobacterial Smear - Preliminary 01/12/23 07:25 Sputum - Expectorated Sputum Gram Stain - Final 01/12/23 07:25 Sputum - Expectorated Sputum Sputum Culture - Final 01/13/23 08:03 Lung Left Upper Lobe Gram Stain - Final 01/13/23 08:03 Lung Left Upper Lobe Bronchial Washings Culture - Preliminary 01/08/23 18:42 Blood Blood Culture - Final NO GROWTH AFTER 5 DAYS 01/08/23 18:38 Blood Blood Culture - Final NO GROWTH AFTER 5 DAYS A&P Assessment and plan (1) Alcohol abuse: (2) Encounter for assessment of decision-making capacity: (3) Left upper lobe pulmonary nodule: (4) Basal cell carcinoma: (5) Suspected lung cancer: (6) Emphysema lung: Plan Patient performed poorly on Jenny testing and it does support that he requires supervision; however, he does appear to have capacity currently to make decisi ons. He was able to assess risks and benefits of his current illnesses and appeared to be able to make reasonable decision regarding the care needed. I had discussed this with family member and they seemed supportive of providing him maximum support in the home situation and to reevaluate situation at home with patient's primary on regular basis. Attestations NPU Medical Necessity Statement*: NA Coding Level of Care Code Acute Code for Chg Fwd Diagnoses Alcohol abuse F10.10 Encounter for assessment of decision-making capacity Z01.89 Left upper lobe pulmonary nodule R91.1 Basal cell carcinoma C44.91 Suspected lung cancer R68.89 Emphysema lung J43.9
[2023-01-15] MEDS: heparin 5,000 unit/mL INJ 1 mL 5000 UNIT SUBCUT (03:07)
[2023-01-15 04:00] VITALS: BP 116/77; PULSE 74; RESP 18; TEMP 36.8; O2SAT 96
[2023-01-15 05:00] VITALS: PULSE 84
[2023-01-15 06:44] LABS: Magnesium 1.7 mg/dL (1.7-2.3)
[2023-01-15 06:45] LABS: Anion Gap 13.1 (5-19); Blood Urea Nitrogen 8 mg/dL (8-23); Calcium 8.1 mg/dL (8.5-10.5); Carbon Dioxide 20 mmol/L (22-29); Chloride 104 mmol/L (98-107); Glomerular Filtration Rate 95.6 mL/min (90-130); Glucose 86 mg/dL (65-115); Osmolality Calculated 274 mOsm/kg (285-295); Potassium 4.1 mmol/L (3.5-5.1); Sodium 133 mmol/L (136-145)
[2023-01-15 07:29] VITALS: BP 120/79; PULSE 79; RESP 17; TEMP 36.4; O2SAT 96
[2023-01-15] MEDS: multivitamin therapeutic Tablet 1 TAB PO (08:48)
[2023-01-15] MEDS: folic acid 1 mg Tablet PO (08:49)
[2023-01-15] MEDS: thiamine 100 mg Tablet PO (08:49)
--- NOTE | 2023-01-15 09:03 | PC.SOCIAL ---
IMM Update Pg 2 of IMM Updated and reviewed with patient, copy provided.
--- NOTE | 2023-01-15 10:13 | P.PN_ITS ---
Subjective Subjective: I evaluated the patient at the bedside this morning. He is punch biopsies came back as basal cell carcinoma. In addition to that in the interim he was found to have a lingular lesion that was biopsied and it turns out to be squamous cell carcinoma. Patient is currently stable does not really have symptoms, current weight Linq placement. Vitals/I&O/Wt Last Vital Signs Temp 97.6 F 01/15/23 07:29 Pulse 79 01/15/23 07:29 Resp 17 01/15/23 07:29 BP 120/79 01/15/23 07:29 Pulse Ox 96 01/15/23 07:29 O2 Del Method Room Air 01/15/23 07:29 01/14/23 01/15/23 01/15/23 22:59 06:59 14:59 Intake Total 780 / 1310 20 / 1330 120 / 120 Output Total 1100 / 1300 550 / 1850 Balance -320 / 10 -530 / -520 120 / 120 Weight last 48 hrs Weight 160 lb 5 oz Weight 159 lb 2 oz Physical Exam Extremity: NARRATIVE EXTREMITY EXAM: On the left upper extremity at the level of the anterior arm there is a 2.5 x 2.5 cm ulcerated lesion, the lesion appears to be fixed to the underlying tissues, there is small amount of superficial bleeding from the ulceration area. Urinary Catheter Management: Ram: Cath Placed During This Visit: yes Reason for Continuing Indwelling Catheter: Acute Urinary Retention or Obstruction Urinary Catheter Date of Insertion: 01/09/23 Urinary Catheter Time of Insertion: 18:12 Data 01/13/23 15:05 01/15/23 05:45 Micro: Microbiology 01/13/23 08:03 Fungal Smear - Preliminary Tissue 01/13/23 08:03 Fungal Smear - Preliminary Tissue 01/13/23 08:03 Mycobacterial Smear - Preliminary Sputum - Endotracheal Tube Aspirate 01/12/23 07:25 Gram Stain - Final Sputum - Expectorated Sputum Sputum Culture - Final 01/13/23 08:03 Gram Stain - Final Lung Left Upper Lobe Bronchial Washings Culture - Preliminary A&P Assessment and plan (1) Basal cell carcinoma: (2) Suspected lung cancer: Plan This is a 72-year-old male who I know after doing punch biopsies of the left upper extremity ulcerated lesion that was suspicious for malignancy. The biopsies came back as basal cell carcinoma. Patient will require a wide local excision of this basal Cell carcinoma. After my reassessment of the patient the following is my assessment. While basal cell carcinoma is a type of skin cancer that does not usually metastasize, it can be locally aggressive at invade surrounding tissues. During my physical examination I have noted that ulceration appears to be fixed to the deep tissues of the left arm, this will in dicate that the during wire localization patient may require excision of muscle or additional structural components of the left upper extremity in addition to the skin and the subcutaneous tissue. I think probably his best option will be to obtain an MRI of the left upper extremity to further characterize the lesion and depth of invasion and after this he may be referred for management in an institution that he has plastic surgery availability or surgical oManagement will require wide local excision with possible flap coverage and possible excision of the underlying fascia and muscle which will require higher level of expertise. In addition, patient has been diagnosed with ischemic cell carcinoma of the lung, treatment can be discussed in a multidisciplinary fashion in order to avoid multiple treatments to the OR and allow for treatment of both conditions. Attestations Medical Necessity Statement*: Length of stay to be determined by medical team. Coding Level of Care Code 77450 Diagnoses Basal cell carcinoma C44.91 Suspected lung cancer R68.89
[2023-01-15 11:19] VITALS: BP 111/71; PULSE 78; RESP 16; TEMP 36.9; O2SAT 97
--- NOTE | 2023-01-15 13:05 | P.PN_ITS ---
Subjective Subjective: -Patient is scheduled to discharge today -Pathologist Dr. Micha Jett called and informed that patient biopsy from left upper lobe Cavitary lesion-showed squamous cell cancer; I have informed path ologist to send for PD-L1 testing -Hospitalist Dr. Elizabeth has given the results to the patient. -I have called patient's son and [id number] over phone and disclosed biopsy results - I have informed them he needs to do PET CT scan for staging as well as pulmonary function tests.? Once all the workup is completed-we will be able to stage his cancer and decide treatment options like surgery/radiat ion/chemotherapy. I have informed family that we will send for oncology referral. Medications: Reviewed: Yes Vitals/I&O/Wt Last Vital Signs Temp 98.4 F 01/15/23 11:19 Pulse 78 01/15/23 11:19 Resp 16 01/15/23 11:19 BP 111/71 01/15/23 11:19 Pulse Ox 97 01/15/23 11:19 O2 Del Method Room Air 01/15/23 11:19 01/14/23 01/15/23 01/15/23 22:59 06:59 14:59 Intake Total 780 / 1310 20 / 1330 620 / 620 Output Total 1100 / 1300 550 / 1850 Balance -320 / 10 -530 / -520 620 / 620 Weight last 48 hrs Weight 160 lb 5 oz Weight 159 lb 2 oz Physical Exam Narrative: General: alert, NAD, at times confused HEENT: conj clear, EOMI, PERRL, mmm, Neck: supple, no meningismus Heme: no cervical LAP Respiratory: Inspection: No visible deformity of the chest wall Palpation: Trachea is mildly deviated to the right, bilateral symmetric expansion Percussion: Bilateral tympanic percussion note both anterior and posteriorly Auscultation: Mild diffuse end expiratory wheeze Cardiovascular: rrr, nl s1s2, no mrg Abdomen: soft, nt, nd, no r/g, bs+ Extremities: pulses +, no edema, no c/c : no CVA tenderness Skin: intact, no rash MSK: no back or neck pain Neurologic: grossly intact Urinary Catheter Management: Ram: Cath Placed During This Visit: yes Reason for Continuing Indwelling Catheter: Acute Urinary Retention or Obstruction Urinary Catheter Date of Insertion: 01/09/23 Urinary Catheter Time of Insertion: 18:12 Data 11/20/23 15:05 01/15/23 05:45 Other Labs: Radiology Impressions Chest/Abdomen/Pelvis CT 01/08/23 15:37 IMPRESSION: 1. 2.3 cm cavitary nodule in the left upper lobe. Consider non-emergent IMPRESSION: 1. No acute findings. 2. Indeterminate 1.7 cm right adrenal nodule. Consider 12 month follow-up adrenal CT. (Reference: Aristides) 3. 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 References: Aristides JOE, et al. Management of Incidental Adrenal Masses: A White Paper of the ACR Incidental Findings Committee. J Am Heaven Radiol. 2017;14(8):7487-[address]. H[address]us CT 01/08/23 15:39 IMPRESSION: 1. Large cutaneous/dermal lesion in the distal left upper arm as described. Dermatology consultation recommended. 2. 2.3 cm cavitary left upper lobe nodule. Please refer to CT chest report. Head CT 01/08/23 19:00 IMPRESSION: 1. No definite evidence for metastatic disease. 2. 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 Chest X-Ray 01/14/23 09:09 IMPRESSION: No acute cardiopulmonary disease. Laboratory Results WBC 9.84 10^3/uL (3.29-11.43) 01/13/23 15:05 RBC 2.76 10^6/uL (3.85-5.65) L 01/13/23 15:05 Hgb 9.70 g/dL (11.27-16.99) L 01/13/23 15:05 Hct 28.1 % (37-53) L 01/13/23 15:05 MCV 101.8 fl (82-101) H 01/13/23 15:05 MCH 35.1 pg (27-33) H 01/13/23 15:05 MCHC 34.5 g/dL (30-55) 01/13/23 15:05 RDW 15.0 % (12.1-15.1) 01/13/23 15:05 Plt Count 208 10^3/cmm (157-399) 01/13/23 15:05 MPV 10.1 fL (7.4-10.4) 01/13/23 15:05 Neut % (Auto) 85.8 % 01/13/23 15:05 Lymph % (Auto) 9.8 % 01/13/23 15:05 [place] % (Auto) 2.1 % 01/13/23 15:05 Eos % (Auto) 0.2 % 01/13/23 15:05 Baso % (Auto) 0.5 % 01/13/23 15:05 Neut # (Auto) 8.44 10^3/uL (1.8-7.7) H 01/13/23 15:05 Lymph # (Auto) 1.0 10^3/uL (0.8-4.8) 01/13/23 15:05 [place] # (Auto) 0.2 10^3/uL (0.2-0.9) 01/13/23 15:05 Eos # (Auto) 0.0 10^3/uL (0.0-0.8) 01/13/23 15:05 Baso # (Auto) 0.1 10^3/uL (0.0-0.1) 01/13/23 15:05 Nucleated RBC % (auto) 0 % 01/13/23 15:05 Nucleated RBCs # 0.0 /100WBC 01/13/23 15:05 ESR 27 mm/hr (0-10) H 01/08/23 14:09 Sodium 133 mmol/L (136-145) L 01/15/23 05:45 Potassium 4.1 mmol/L (3.5-5.1) 01/15/23 05:45 Chloride 104 mmol/L (98-107) 01/15/23 05:45 Carbon Dioxide 20 mmol/L (22-29) L 01/15/23 05:45 Anion Gap 13.1 (5-19) 01/15/23 05:45 BUN 8 mg/dL (8-23) 01/15/23 05:45 Creatinine 0.8 mg/dL (0.7-1.2) 01/15/23 05:45 GFR Calculation 95.6 mL/min (90-130) 01/15/23 05:45 Glucose 86 mg/dL (65-115) 01/15/23 05:45 Estimat Average Glucose 128 01/08/23 14:09 Hemoglobin A1c 6.1 % (4.0-6.0) H 01/08/23 14:09 Serum Osmolality 270 mOsm/kg (278-305) L 01/08/23 14:09 Calculated Osmolality 274 mOsm/kg (285-295) L 01/15/23 05:45 Uric Acid 9.8 mg/dL (3.4-7.0) H 01/08/23 14:09 Calcium 8.1 mg/dL (8.5-10.5) L 01/15/23 05:45 Phosphorus 3.7 mg/dL (2.5-4.5) 01/09/23 05:35 Magnesium 1.7 mg/dL (1.7-2.3) 01/15/23 05:45 Total Bilirubin 0.8 mg/dL (0.15-1.2) 01/08/23 14:09 AST 31 U/L (0-40) 01/08/23 14:09 ALT 25 U/L (0-41) 01/08/23 14:09 Alkaline Phosphatase 118 U/L (40-130) 01/08/23 14:09 Ammonia 20 umol/L (16-60) 01/08/23 20:17 Troponin T Baseline 37 ng/L (0-15) H 01/08/23 14:09 Troponin T 120 Minute 29.05 ng/L (0-15) H 01/08/23 16:48 Delta Troponin T -7.95 ABS# (0-10) L 01/08/23 16:48 Troponin T Hi Sens 6Hr 30.00 ng/L (0-15) H 01/08/23 20:17 Troponin T Hi Sens 6Hr Delta -7.00 ng/L (0-12) L 01/08/23 20:17 C-Reactive Protein 28.9 mg/L (0.0-4.9) H 01/09/23 05:35 Total Protein 6.3 g/dL (6.6-8.7) L 01/08/23 14:09 Albumin 2.9 g/dL (3.5-5.2) L 01/08/23 14:09 Globulin 3.4 g/dL (1.3-4.6) 01/08/23 14:09 Triglycerides 117 mg/dL (0-150) 01/08/23 14:09 Cholesterol 177 mg/dL (0-200) 01/08/23 14:09 LDL Cholesterol, Calc 109 mg/dL (50-129) 01/08/23 14:09 HDL Cholesterol 45 mg/dL (60-100) L 01/08/23 14:09 LDL/HDL Ratio 2.42 RATIO (0.00-3.22) 01/08/23 14:09 Cholesterol/HDL Ratio 3.93 mg/dL (1.0-5.00) 01/08/23 14:09 Carcinoembryonic Ag 3.3 ng/mL (0.0-4.7) 01/08/23 14:09 CA 19-9 Antigen 15.77 U/mL (0-35) 01/08/23 14:09 PSA Screen 16.75 ng/mL (0-4) H 01/08/23 14:09 Vitamin B12 894 pg/mL (232-1245) 01/08/23 14:09 TSH 1.31 uIU/mL (0.27-4.20) 01/08/23 14:09 TSH Cancelled 01/08/23 14:09 Urine Color Tiff (Yellow) 01/11/23 02:56 Urine Appearance Hazy (CLEAR) A 01/11/23 02:56 Urine pH 5 (5-7) 01/11/23 02:56 Ur Specific [place] 1.005 (1.005-1.030) 01/11/23 02:56 Urine Protein Neg (Negative) 01/11/23 02:56 Urine Glucose (UA) Norm (Normal) 01/11/23 02:56 Urine Ketones Negative (Negative) 01/11/23 02:56 Urine Blood 2+ (Negative) H 01/11/23 02:56 Urine Nitrate Negative (Negative) 01/11/23 02:56 Urine Bilirubin Neg (Negative) 01/11/23 02:56 Urine Urobilinogen 8 mg/dL (Negative) H 01/11/23 02:56 Ur Leukocyte Esterase 1+ (Negative) H 01/11/23 02:56 Urine RBC Rare /hpf (0-2) 01/11/23 02:56 Urine WBC Rare /hpf (0-5) 01/11/23 02:56 Ur Squamous Epith Cells None /hpf (0-5) 01/11/23 02:56 Amorphous Sediment 2+ /hpf 01/11/23 02:56 Urine Bacteria Trace /hpf (NONE) 01/11/23 02:56 Urine Osmolality 414 mOsm/kg (50-1200) 01/11/23 02:56 Ur Random Sodium 26 mmol/L 01/11/23 02:56 Bronch Specimen Source Left upper lung bal 01/13/23 08:03 Bronchial Fluid Color Red 01/13/23 08:03 Bronchial Fluid Appearance Cloudy (CLEAR) 01/13/23 08:03 Bronch Cells Counted 200 01/13/23 08:03 Bronchial Neutrophils 61.00 % (0.9-2.3) H 01/13/23 08:03 Bronchial Lymphocytes 15.00 % (10.71-12.91) H 01/13/23 08:03 Bronchial Macrophages 24.00 % (83.6-86.8) L 01/13/23 08:03 Bronchial Diff Comment Yes 01/13/23 08:03 Vancomycin Trough 28.3 ug/mL (10-15) H* 01/12/23 18:08 C. difficile Tox (PCR) Not detected (NOT DETECTED) 01/10/23 10:30 A. galactomannan Ag EIA Not detected 01/09/23 05:35 A. galactomannan Ag Idx <0.50 01/09/23 05:35 MRSA (PCR) TNP 01/11/23 02:56 TB (QFT) Gold In Tube Negative (NEGATIVE) 01/09/23 10:13 TB Test (QFT) Nil 0.02 IU/mL 01/09/23 10:13 TB Test (QFT) Mitogen >10.00 IU/mL 01/09/23 10:13 TB Test Mitogen - Nil 0.01 IU/mL 01/09/23 10:13 TB Test TB -Nil 0.00 IU/mL 01/09/23 10:13 Beta-(1,3)-D-Glucan <31 pg/mL 01/09/23 05:35 B-(1,3)-D-Glucan Intrp Negative 01/09/23 05:35 Micro: Microbiology 01/13/23 08:03 Gram Stain - Final Lung Left Upper Lobe Bronchial Washings Culture - Final 01/13/23 08:03 Fungal Smear - Preliminary Tissue 01/13/23 08:03 Fungal Smear - Preliminary Tissue 01/13/23 08:03 Mycobacterial Smear - Preliminary Sputum - Endotracheal Tube Aspirate 01/12/23 07:25 Gram Stain - Final Sputum - Expectorated Sputum Sputum Culture - Final A&P Assessment and plan (1) Squamous cell carcinoma of lung: With significant weight loss as well as smoking history-left upper lobe cavitary lesion is suspicious for malignancy However given his history of alcoholism-it could be lung abscess-currently he is being treated with vancomycin/Zosyn Patient is in [id number] for TB, fungal is sent and currently pending - Patient underwent robotic bronchoscopic guided biopsy of left upper lobe lesion 01/13/2023; endobronchial ultrasound did not show any hilar/mediastinal lymph nodes -Pathologist Dr. Micha Jett called and informed that patient biopsy from left upper lobe Cavitary lesion-showed squamous cell cancer; I have informed pathologist to send for PD-L1 testing -Hospitalist Dr. Elizabeth has given the results to the patient. -I have called patient's son and [id number] over phone and disclosed biopsy results - I have informed them he needs to do PET CT scan for staging as well as pulmonary function tests.? Once all the workup is completed-we will be able to stage his cancer and decide treatment options like surgery/radiation/chemotherapy. I have informed family that we will send for oncology referra (2) Emphysema lung: CT evidence of emphysema More than 45-[id number] smoking history Currently on nicotine patch while in the hospital Patient will need PFTs as outpatient During discharge-patient has LAMA for daily use as well as albuterol as needed Attestations Medical Necessity Statement*: Scheduled to be discharged today Coding Level of Care Code Acute Code for [facility] Fwd Diagnoses Squamous cell carcinoma of lung C34.90 Emphysema lung J43.9 Time Spent (min) 39
[2023-01-15 15:44] VITALS: BP 120/80; PULSE 87; RESP 18; TEMP 36.8; O2SAT 96
--- NOTE | 2023-01-15 15:57 | P.PN_ITS ---
Subjective Subjective: Seen this morning. Denies shortness of breath, chest pain or any other issues at this time. Discussed patient's biopsy findings with him. He states that he would like to speak to the specialist to decide what kind of treatment is available in order to decide what he wants to get done. He says he is not ready for chemotherapy at this point and would like to discuss further. He says he is going to a [facility] short-term and then will be returning home with his son. Vitals/I&O/Wt Last Vital Signs Temp 98.2 F 01/15/23 15:44 Pulse 87 01/15/23 15:44 Resp 18 01/15/23 15:44 BP 120/80 01/15/23 15:44 Pulse Ox 96 01/15/23 15:44 O2 Del Method Room Air 01/15/23 15:44 01/15/23 01/15/23 01/15/23 06:59 14:59 22:59 Intake Total 20 / 1330 620 / 620 Output Total 550 / 1850 700 / 700 Balance -530 / -520 620 / 620 -700 / -80 Weight last 48 hrs Weight 72.717 kg Weight 72.178 kg Physical Exam Narrative: No acute distress sitting up in bed appearing comfortable. GCS 15 Awake alert Currently on room air Pleasant Lungs clear to auscultation bilaterally no wheezes no rhonchi Abdomen soft Cachectic appearing S1, S2 Urinary Catheter Management: Ram: Cath Placed During This Visit: yes Reason for Continuing Indwelling Catheter: Acute Urinary Retention or Obstruction Urinary Catheter Date of Insertion: 01/09/23 Urinary Catheter Time of Insertion: 18:12 Data 01/13/23 15:05 01/15/23 05:45 Micro: Microbiology 01/13/23 08:03 Gram Stain - Final Lung Left Upper Lobe Bronchial Washings Culture - Final 01/13/23 08:03 Fungal Smear - Preliminary Tissue 01/13/23 08:03 Fungal Smear - Preliminary Tissue 01/13/23 08:03 Mycobacterial Smear - Preliminary Sputum - Endotracheal Tube Aspirate 01/12/23 07:25 Gram Stain - Final Sputum - Expectorated Sputum Sputum Culture - Final A&P Assessment and plan (1) Emphysema lung: (2) Left upper lobe pulmonary nodule: (3) Alcoholic Korsakoff syndrome: (4) Encounter for assessment of decision-making capacity: (5) Alcohol abuse: (6) Protein calorie malnutrition: (7) Malnourished: (8) Failure to thrive: (9) Pulmonary cavitary lesion: (10) Skin ulcer: (11) Acute hyponatremia: (12) Acute hypokalemia: (13) Generalized weakness: (14) Unintentional weight loss: (15) Basal cell carcinoma: Plan #Squamous cell carcinoma #Basal cell carcinoma #History of alcohol abuse #Wernicke's encephalopathy #Severe protein calorie malnutrition #Failure to thrive #Unintentional weight loss #Hyperlipidemia #Hypertension #Emphysema - Bronchoscopy performed 01/15 Pearly white lesion seen. That was biopsied. No pneumothorax postprocedure. Repeat x-ray done today did not show a pneumothorax. TB panel negative. Ruled out. ? Stop IV antibiotics. - Skin biopsy results Show ulcerated basal cell carcinoma involving one edge and at the base.? Reexcision with uninvolved margins as warranted. MRI of left arm recommended by surgery. Defer surgical excision to plastic surgeon since patient might require a flap. ? Squamous cell carcinoma of the lung. Lymph node biopsy still pending. Patient may be able to get resection done versus radiation depending on lymph node results. Discussed with restrictive preparation operator over the phone today. Patient to discharge and follow-up with pulmonology as an outpatient to decide further course of treatment. ? Referral to dermatology at discharge. ?Replete electrolytes as needed ? Patient scored 8 out of 13 on colin assessment. 24-hour supervision recommended. Patient will be going to [facility] for [facility] initially and then return home with his son later on. ? Psychiatry consulted to assess for capacity. Consult note pending. - Consult auto glass technician Full code Attestations Medical Necessity Statement*: awaiting placement Coding Level of Care Code 73442 Moderate MDM includes number and complexity of problems actively addressed during encounter, amount and/or complexity of data reviewed/ordered and described risk of complication, morbidity or mortality of management as docume nted Diagnoses Emphysema lung J43.9 Left upper lobe pulmonary nodule R91.1 Alcoholic Korsakoff syndrome F10.96 Encounter for assessment of decision-making capacity Z01.89 Alcohol abuse F10.10 Protein calorie malnutrition E46 Malnourished E46 Failure to thrive Pulmonary cavitary lesion J98.4 Skin ulcer L98.499 Acute hyponatremia E87.1 Acute hypokalemia E87.6 Generalized weakness R53.1 Unintentional weight loss R63.4 Basal cell carcinoma C44.91
--- NOTE | 2023-01-15 16:30 | P.DS_ITS ---
Discharge Providers Date of Admission: 01/08/23 16:41 Date of Discharge: January 15, 2023 Attending Provider at Admission: Ana Elizabeth MD Attending Provider at Discharge: Ana Elizabeth MD Primary Care Provider: GUNNAR Rodriguez Diagnoses at Discharge Discharge Diagnosis (1) Emphysema lung: Status: Acute (2) Left upper lobe pulmonary nodule: Status: Acute (3) Alcoholic Korsakoff syndrome: Status: Acute (4) Encounter for assessment of decision-making capacity: Status: Acute Permanent problem details: Wernicke's Korsakoff, patient does not have capacity to make decision (5) Alcohol abuse: Status: Acute (6) Protein calorie malnutrition: Status: Acute (7) Malnourished: Status: Acute (8) Failure to thrive: Status: Acute (9) Pulmonary cavitary lesion: Status: Acute (10) Skin ulcer: Status: Acute (11) Acute hyponatremia: Status: Resolved (12) Acute hypokalemia: Status: Resolved (13) Generalized weakness: Status: Acute (14) Unintentional weight loss: Status: Acute (15) Basal cell carcinoma: Status: Acute Reason for Visit Reason for Visit: Weakness Hospital Course Hospital Course Patient admitted for failure to thrive, weakness, cachexia, weight loss. CT chest abdomen pelvis was done which showed 2.3 cm left upper lobe cavitary lesion. TB test was ordered which was negative. Patient underwent bronchoscopy and biopsy revealed squamous cell carcinoma. Lymph node biopsy pending at time of discharge. He was also found to have left upper arm ulcerating lesion with rolled edges which was also biopsied and it showed ulcerated basal cell carcinoma. General surgery was consulted for biopsy purposes. General surgery recommended that patient have a left upper arm MRI done to see extent of lesion prior to excision. He will then require a referral to plastic surgery since he might require a flap. Depending upon further management of squamous cell cancer of lung and whether he needs a lung resection it is possible that they may do both procedures at the same time. During hospital stay there was a lot of concern from family regarding patient's safety since he lives alone. Kells assessment was done on which she scored 8 out of 13. 24-hour supervision recommended. Initially patient was not interested in going to a [place] [facility] and wanted to return home however due to safety reasons that was not allowed for. His capacity was assessed.. Psychiatry was consulted as well. Hospitalist taking care of the patient believes patient has capacity to make his decisions and psychiatrist agrees with this. However may also agree that he requires supervision. This was discussed with the family. Patient ultimately decided to go [place] [facility] period of time for therapy and then will be returning home with his family as they are setting up an apartment for him. Family stated that they will be able to take care of him at home once he gets released from the [place] [facility]. Patient will follow up with pulmonology as an outpatient, dermatology as an outpatient and general surgery as an outpatient. He was also given a prescription for MRI at discharge. He will be discharged home in stable condition. Physical Exam Narrative: No acute distress sitting up in bed appearing comfortable. GCS 15 Awake alert Currently on room air Pleasant Lungs clear to auscultation bilaterally no wheezes no rhonchi Abdomen soft Cachectic appearing S1, S2 Urinary Catheter Management: Ram: Cath Placed During This Visit: yes Reason for Continuing Indwelling Catheter: Acute Urinary Retention or Obstruction Urinary Catheter Date of Insertion: 01/09/23 Urinary Catheter Time of Insertion: 18:12 Discharge Data Studies Completed and Pending Completed Studies During Hospitalization Category Date Time Status CT chest abdomen pelvis [CT chest abdpel w/*[id number] Cat Scan 01/08/23 15:37 Completed ] Stat CT head wo con* [id number] Routine Cat Scan 01/08/23 19:[address] humerus LT w con [id number] Stat Cat Scan 01/08/23 15:39 Completed CXRP [XR chest 1V portable [id number]] Routine Exams 01/13/23 08:38 Completed XR chest 1V portable [id number] Stat Exams 01/08/23 13:36 Completed XR chest 1V portable [id number] Urgent Exams 01/14/23 09:09 Completed XR hand LT 2V [id number] Routine Exams 01/10/23 13:03 Completed XR hand RT 2V 23939 Routine Exams 01/10/23 13:02 Completed MR head wo con* [id number] Routine MRI 01/10/23 11:09 Completed Pathology: Surgical [PTH] Routine Pth 01/09/23 12:45 Completed Pathology: Surgical [PTH] Routine Pth 01/13/23 08:30 Completed CV. echo complete* [id number] Routine Ultrasound 01/12/23 15:25 Completed Pending at discharge Category Date Time Status Aspergillus AG,EIA,Serum Routine Lab 01/13/23 15:05 Received Fungal Culture not HR/SK/BL Routine Lab 01/13/23 08:03 Results Fungal Culture not HR/SK/BL Routine Lab 01/13/23 08:03 Results Fcntyjduo-Zorbx-6,3 IgE Routine Lab 01/13/23 15:05 Received MRSA [Methicillin Resistant S.aureu] Routine Lab 01/08/23 17:55 Results Mycobacteria, Culture w/Fluor Routine Lab 01/13/23 08:03 Results Mycobacterium TB Respiratory Routine Lab 01/08/23 07:25 Received Pneumocystis PCP [Pneumocystis jiroveci Qual PCR] Lab 01/08/23 17:55 Results Routine Cytology [PTH] Routine Pth 01/13/23 07:58 Received Radiology Impressions Chest/Abdomen/Pelvis CT 01/08/23 15:37 IMPRESSION: 1. 2.3 cm cavitary nodule in the left upper lobe. Consider non-emergent IMPRESSION: 1. No acute findings. 2. Indeterminate 1.7 cm right adrenal nodule. Consider 12 month follow-up adrenal CT. (Reference: Aristides) 3. 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 References: Aristides JOE, et al. Management of Incidental Adrenal Masses: A White Paper of the ACR Incidental Findings Committee. J Am Heaven Radiol. 2017;14(8):0053-0512. Humerus CT 01/08/23 15:39 IMPRESSION: 1. Large cutaneous/dermal lesion in the distal left upper arm as described. Dermatology consultation recommended. 2. 2.3 cm cavitary left upper lobe nodule. Please refer to CT chest report. Head CT 01/08/23 19:00 IMPRESSION: 1. No definite evidence for metastatic disease. 2. 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 Chest X-Ray 01/14/23 09:09 IMPRESSION: No acute cardiopulmonary disease. Laboratory Results WBC 9.84 10^3/uL (3.29-11.43) 01/13/23 15:05 RBC 2.76 10^6/uL (3.85-5.65) L 01/13/23 15:05 Hgb 9.70 g/dL (11.27-16.99) L 01/13/23 15:05 Hct 28.1 % (37-53) L 01/13/23 15:05 MCV 101.8 fl (82-101) H 01/13/23 15:05 MCH 35.1 pg (27-33) H 01/13/23 15:05 MCHC 34.5 g/dL (30-55) 01/13/23 15:05 RDW 15.0 % (12.1-15.1) 01/13/23 15:05 Plt Count 208 10^3/cmm (157-399) 01/13/23 15:05 MPV 10.1 fL (7.4-10.4) 01/13/23 15:05 Neut % (Auto) 85.8 % 01/13/23 15:05 Lymph % (Auto) 9.8 % 01/13/23 15:05 [place] % (Auto) 2.1 % 01/13/23 15:05 Eos % (Auto) 0.2 % 01/13/23 15:05 Baso % (Auto) 0.5 % 01/13/23 15:05 Neut # (Auto) 8.44 10^3/uL (1.8-7.7) H 01/13/23 15:05 Lymph # (Auto) 1.0 10^3/uL (0.8-4.8) 01/13/23 15:05 [place] # (Auto) 0.2 10^3/uL (0.2-0.9) 01/13/23 15:05 Eos # (Auto) 0.0 10^3/uL (0.0-0.8) 01/13/23 15:05 Baso # (Auto) 0.1 10^3/uL (0.0-0.1) 01/13/23 15:05 Nucleated RBC % (auto) 0 % 01/13/23 15:05 Nucleated RBCs # 0.0 /100WBC 01/13/23 15:05 ESR 27 mm/hr (0-10) H 01/08/23 14:09 Sodium 133 mmol/L (136-145) L 01/15/23 05:45 Potassium 4.1 mmol/L (3.5-5.1) 01/15/23 05:45 Chloride 104 mmol/L (98-107) 01/15/23 05:45 Carbon Dioxide 20 mmol/L (22-29) L 01/15/23 05:45 Anion Gap 13.1 (5-19) 01/15/23 05:45 BUN 8 mg/dL (8-23) 01/15/23 05:45 Creatinine 0.8 mg/dL (0.7-1.2) 01/15/23 05:45 GFR Calculation 95.6 mL/min (90-130) 01/15/23 05:45 Glucose 86 mg/dL (65-115) 01/15/23 05:45 Estimat Average Glucose 128 01/08/23 14:09 Hemoglobin A1c 6.1 % (4.0-6.0) H 01/08/23 14:09 Serum Osmolality 270 mOsm/kg (278-305) L 01/08/23 14:09 Calculated Osmolality 274 mOsm/kg (285-295) L 01/15/23 05:45 Uric Acid 9.8 mg/dL (3.4-7.0) H 01/08/23 14:09 Calcium 8.1 mg/dL (8.5-10.5) L 01/15/23 05:45 Phosphorus 3.7 mg/dL (2.5-4.5) 01/09/23 05:35 Magnesium 1.7 mg/dL (1.7-2.3) 01/15/23 05:45 Total Bilirubin 0.8 mg/dL (0.15-1.2) 01/08/23 14:09 AST 31 U/L (0-40) 01/08/23 14:09 ALT 25 U/L (0-41) 01/08/23 14:09 Alkaline Phosphatase 118 U/L (40-130) 01/08/23 14:09 Ammonia 20 umol/L (16-60) 01/08/23 20:17 Troponin T Baseline 37 ng/L (0-15) H 01/08/23 14:09 Troponin T 120 Minute 29.05 ng/L (0-15) H 01/08/23 16:48 Delta Troponin T -7.95 ABS# (0-10) L 01/08/23 16:48 Troponin T Hi Sens 6Hr 30.00 ng/L (0-15) H 01/08/23 20:17 Troponin T Hi Sens 6Hr Delta -7.00 ng/L (0-12) L 01/08/23 20:17 C-Reactive Protein 28.9 mg/L (0.0-4.9) H 01/09/23 05:35 Total Protein 6.3 g/dL (6.6-8.7) L 01/08/23 14:09 Albumin 2.9 g/dL (3.5-5.2) L 01/08/23 14:09 Globulin 3.4 g/dL (1.3-4.6) 01/08/23 14:09 Triglycerides 117 mg/dL (0-150) 01/08/23 14:09 Cholesterol 177 mg/dL (0-200) 01/08/23 14:09 LDL Cholesterol, Calc 109 mg/dL (50-129) 01/08/23 14:09 HDL Cholesterol 45 mg/dL (60-100) L 01/08/23 14:09 LDL/HDL Ratio 2.42 RATIO (0.00-3.22) 01/08/23 14:09 Cholesterol/HDL Ratio 3.93 mg/dL (1.0-5.00) 01/08/23 14:09 Carcinoembryonic Ag 3.3 ng/mL (0.0-4.7) 01/08/23 14:09 CA 19-9 Antigen 15.77 U/mL (0-35) 01/08/23 14:09 PSA Screen 16.75 ng/mL (0-4) H 01/08/23 14:09 Vitamin B12 894 pg/mL (232-1245) 01/08/23 14:09 TSH 1.31 uIU/mL (0.27-4.20) 01/08/23 14:09 TSH Cancelled 01/08/23 14:09 Urine Color Tiff (Yellow) 01/11/23 02:56 Urine Appearance Hazy (CLEAR) A 01/11/23 02:56 Urine pH 5 (5-7) 01/11/23 02:56 Ur Specific [place] 1.005 (1.005-1.030) 01/11/23 02:56 Urine Protein Neg (Negative) 01/11/23 02:56 Urine Glucose (UA) Norm (Normal) 01/11/23 02:56 Urine Ketones Negative (Negative) 01/11/23 02:56 Urine Blood 2+ (Negative) H 01/11/23 02:56 Urine Nitrate Negative (Negative) 01/11/23 02:56 Urine Bilirubin Neg (Negative) 01/11/23 02:56 Urine Urobilinogen 8 mg/dL (Negative) H 01/11/23 02:56 Ur Leukocyte Esterase 1+ (Negative) H 01/11/23 02:56 Urine RBC Rare /hpf (0-2) 01/11/23 02:56 Urine WBC Rare /hpf (0-5) 01/11/23 02:56 Ur Squamous Epith Cells None /hpf (0-5) 01/11/23 02:56 Amorphous Sediment 2+ /hpf 01/11/23 02:56 Urine Bacteria Trace /hpf (NONE) 01/11/23 02:56 Urine Osmolality 414 mOsm/kg (50-1200) 01/11/23 02:56 Ur Random Sodium 26 mmol/L 01/11/23 02:56 Bronch Specimen Source Left upper lung bal 01/13/23 08:03 Bronchial Fluid Color Red 01/13/23 08:03 Bronchial Fluid Appearance Cloudy (CLEAR) 01/13/23 08:03 Bronch Cells Counted 200 01/13/23 08:03 Bronchial Neutrophils 61.00 % (0.9-2.3) H 01/13/23 08:03 Bronchial Lymphocytes 15.00 % (10.71-12.91) H 01/13/23 08:03 Bronchial Macrophages 24.00 % (83.6-86.8) L 01/13/23 08:03 Bronchial Diff Comment Yes 01/13/23 08:03 Vancomycin Trough 28.3 ug/mL (10-15) H* 01/12/23 18:08 C. difficile Tox (PCR) Not detected (NOT DETECTED) 01/10/23 10:30 A. galactomannan Ag EIA Not detected 01/09/23 05:35 A. galactomannan Ag Idx <0.50 01/09/23 05:35 MRSA (PCR) TNP 01/11/23 02:56 TB (QFT) Gold In Tube Negative (NEGATIVE) 01/09/23 10:13 TB Test (QFT) Nil 0.02 IU/mL 01/09/23 10:13 TB Test (QFT) Mitogen >10.00 IU/mL 01/09/23 10:13 TB Test Mitogen - Nil 0.01 IU/mL 01/09/23 10:13 TB Test TB -Nil 0.00 IU/mL 01/09/23 10:13 Beta-(1,3)-D-Glucan <31 pg/mL 01/09/23 05:35 B-(1,3)-D-Glucan Intrp Negative 01/09/23 05:35 Vitals Last Vital Signs Temp 98.2 F 01/15/23 15:44 Pulse 87 01/15/23 15:44 Resp 18 01/15/23 15:44 BP 120/80 01/15/23 15:44 Pulse Ox 96 01/15/23 15:44 O2 Del Method Room Air 01/15/23 15:44 Discharge Plan Discharge Patient Disposition: Xfer SNF Condition: Stable Prescriptions: New folic acid 1 mg Tablet 1 mg PO DAILY Qty: 30 0RF Vitamin B-1 (mononitrate) 100 mg Tablet 100 mg PO DAILY Qty: 30 0RF Thera 400 mcg Tablet 1 tab PO DAILY Qty: 30 0RF Discharge Orders: Discharge Order (Routine); Ordered 01/15/23 Ordered By: Ana Elizabeth Other Ambulatory Orders: MR humerus LT wo con* [id number] (Routine) Timeframe: 1 Day Facility: [facility] - Location: Radiology [facility] Ordered By: Ana Elizabeth Referrals: Kyle Ambriz MD [Physician] - 01/27/23 1:00 pm () Mariposa Bowen FNP [Primary Care Provider] - Iris Coleman DO [Physician] - (We have notified your physician's clinic of the need for a follow-up appointment to be scheduled. If you have not heard from them within the next 2 business days, please call them directly. ) Discharge Diet: Regular Discharge Activity: Resume usual activity and As per PT/OT instructions Activity Restrictions/Additional Instructions: Referral has been made to oncology. They will call you with an appointment. PET scan has also been ordered. Pulmonary function tests have also been ordered. You should be receiving a call from scheduling to schedule all the above tests. Please follow-up with pulmonology for further management as discussed during her hospital stay. Also follow-up with dermatology as an outpatient.He will also need an MRI of her left upper arm to see the depth of your lesion in order to decide further treatment. Discharge Attestations Time Spent in Discharge Care*: greater than 30 min Quality Metrics Clinical Quality Measures [ No reported AMI, CVA or VTE this stay] Coding Level of Care Code 09160 Total time (in minutes) for Discharge: 40 Diagnoses Emphysema lung J43.9 Left upper lobe pulmonary nodule R91.1 Alcoholic Korsakoff syndrome F10.96 Encounter for assessment of decision-making capacity Z01.89 Alcohol abuse F10.10 Protein calorie malnutrition E46 Malnourished E46 Failure to thrive Pulmonary cavitary lesion J98.4 Skin ulcer L98.499 Acute hyponatremia E87.1 Acute hypokalemia E87.6 Generalized weakness R53.1 Unintentional weight loss R63.4 Basal cell carcinoma C44.91
--- NOTE | 2023-01-15 18:14 | PC.NURSE ---
Andrea Silverman called at 1615 to let this nurse know authorization had been obtained and patient could discharge today. Dr. Elizabeth notified[facility] This nurse spoke with Karey to arrange transport, which [facility] could not transport this evening. This nurse called son Xavi Jorge and let him know patient could discharge and he stated he could transport. Report called by Aileen Cazares to Karey at [facility].
[2023-01-15 18:36] VITALS: BP 120/80; PULSE 87; RESP 18; TEMP 36.8; O2SAT 96
[2023-01-17 02:09] LABS: MTB Complex Respiratory PCR NOT DETECTED; MTB Source SPUTUM
[2023-01-18 15:34] LABS: Galactose-alpha-1,3 IgE 0.74 kU/L (<0.10)
[2023-01-18 16:15] LABS: Aspergillus AG,EIA,Serum NOT DETECTED; Aspergillus Galactomannan Inde <0.50
[2023-01-21 09:24] LABS: PD-L1 (Clone 22C3) by IHC BBPL See Report
== END 2023-01-15 18:38 | disposition skilled nursing facility (03) | DRG 180 ==
LOC: ER 16:38 → MEDSURG 16:42
PROVIDERS: Internal Medicine; Internal Medicine Pulmonary Disease; Admitting Provider Internal Medicine; Emergency Provider Emergency Medicine; PCP Nurse Practitioner Family; Visit Provider Internal Medicine
PROC: 0BJ08ZZ Inspection of Tracheobronchial Tree, Via Natural or Artificial Opening Endoscopic (ICD-10-PCS; CPT 31622; principal; 2023-01-13 07:00)
PROC: BB4BZZZ Ultrasonography of Pleura (ICD-10-PCS; 2023-01-13 07:00)
DX: C34.12 Malignant neoplasm of upper lobe, left bronchus or lung (principal); I63.81 Other cerebral infarction due to occlusion or stenosis of small artery; E46 Unspecified protein-calorie malnutrition; Z68.1 Body mass index [BMI] 19.9 or less, adult; E87.1 Hypo-osmolality and hyponatremia; F10.26 Alcohol dependence with alcohol-induced persisting amnestic disorder; J43.9 Emphysema, unspecified; E87.6 Hypokalemia; C44.619 Basal cell carcinoma of skin of left upper limb, including shoulder; E78.5 Hyperlipidemia, unspecified; I10 Essential (primary) hypertension; E86.0 Dehydration; K76.0 Fatty (change of) liver, not elsewhere classified; R19.7 Diarrhea, unspecified; R33.9 Retention of urine, unspecified; Z72.0 Tobacco use; Z75.1 Person awaiting admission to adequate facility elsewhere
CPT/HCPCS: 31624; 31625; 31627; 31628; 31629; 31645; 31654; 36415; 51702; 70450; 70551; 71045; 71260; 73120; 73201; 74177; 76000; 80048; 80053; 80061; 80202; 80503; 81001; 82140; 82378; 82607; 83036; 83735; 83930; 83935; 84100; 84300; 84443; 84484; 84550; 85025; 85651; 86008; 86140; 86301; 86403; 86480; 87015; 87040; 87070; 87086; 87102; 87116; 87205; 87206; 87305; 87449; 87493; 87556; 87641; 87798; 87801; 88112; 88304; 88305; 88307; 88341; 88342; 89050; 93005; 93306; 96360; 96361; 96372; 97110; 97116; 97161; 97166; 97168; 97530; 97535; 99285; G0103; J0171; J1100; J1644; J2405; J2543; J2704; J2710; J3010; J3370; J3411; J3490; J7030; J7050; Q9967

== ENCOUNTER 2023-02-18 14:52 | Oncology outpatient (recurring) (ONCR) | payer MEDICARE, MEDICAID, SELFPAY ==
[2023-02-05 17:33] LABS: Basophils # 0.1 10^3/uL (0.0-0.1); Eosinophils # 0.2 10^3/uL (0.0-0.8); Eosinophils % 2.5 %; Hematocrit 36.2 % (37-53); Lymphocytes # 2.5 10^3/uL (0.8-4.8); Lymphocytes % 31.8 %; Mean Corpuscular HGB Conc 33.1 g/dL (30-55); Mean Corpuscular Hemoglobin 32.9 pg (27-33); Mean Corpuscular Volume 99.2 fl (82-101); Mean Platelet Volume 9.5 fL (7.4-10.4); Monocytes # 0.4 10^3/uL (0.2-0.9); Monocytes % 5.4 %; Neutrophils # 4.66 10^3/uL (1.8-7.7); Nucleated Red Blood Cells % 0 %; Platelet Count 307 10^3/cmm (157-399); Red Blood Count 3.65 10^6/uL (3.85-5.65); Red Cell Distribution Width 14.1 % (12.1-15.1)
[2023-02-05 17:38] LABS: Reticulocyte % 2.5 % (0.5-2.0)
[2023-02-05 17:52] LABS: Alanine Aminotransferase 18 U/L (0-41); Albumin Level 3.7 g/dL (3.5-5.2); Alkaline Phosphatase 91 U/L (40-130); Anion Gap 13.6 (5-19); Aspartate Amino Transferase 36 U/L (0-40); Blood Urea Nitrogen 12 mg/dL (8-23); Calcium 9.3 mg/dL (8.5-10.5); Carbon Dioxide 25 mmol/L (22-29); Chloride 102 mmol/L (98-107); Glomerular Filtration Rate 83.4 mL/min (90-130); Glucose 96 mg/dL (65-115); Iron 60 ug/dL (59-158); Lactate Dehydrogenase 197 U/L (135-225); Osmolality Calculated 284 mOsm/kg (285-295); Percent Saturation 31.9 % (20-50); Potassium 3.6 mmol/L (3.5-5.1); Sodium 137 mmol/L (136-145); Total Bilirubin 0.4 mg/dL (0.15-1.2); Total Iron Binding Capacity 188 mcg/dl; Total Protein 7.7 g/dL (6.6-8.7); Unsaturated Iron Binding 128 ug/dL (112-347)
[2023-02-05 18:06] LABS: Ferritin 1861 ng/mL (30-400)
[2023-02-05 18:08] LABS: Vitamin B12 606 pg/mL (232-1245)
[2023-02-05 18:24] LABS: Folate Level 3.3 ng/mL (4.5-32.2)
--- NOTE | 2023-02-18 16:46 | N.ONRAD NP_ITS ---
Radiation Oncology New Patient Visit Patient: Xavi Jorge MR#: [id number] : 1950 Age: 72 Sex: Male Dictated by: Kuldip Moura Date of Service: 02/18/2023 Referring Physician(s) : Dr. Park Diagnosis: Lung, left, upper lobe, squamous cell carcinoma, stage T1c NX MX Radiotherapy to date: Summary > No prior radiation therapy. Chief Complaint / History of Present Illness: Mr. Jorge is a 72-year-old man in generally poor health who was hospitalized [id number] because of lethargy, or and altered mental status. He had both a CT and MRI of the brain without contrast. There was evidence of a small lacunar stroke but no major abnormalities. During his hospitalization he underwent a CT of the chest abdomen pelvis. He was found to have a 2.3 cm cavitary nodule in the upper lobe of the left lung. The study was also remarkable for 1.7 cm mass in the right adrenal gland imaging characteristics indeterminant. He underwent bronchoscopy and based on cytology has squamous cell carcinoma involving the upper lobe of the left lung. A PET scan was scheduled after he was discharged from the hospital, but the patient and his family were unaware that the study had been scheduled. The patient did live alone but now he has moved in with his son. He seems to be doing better in terms of his overall general condition. He has not had any trouble breathing, cough, hemoptysis, or purulent sputum production. He has had significant weight loss as noted above. It, according to him, is simply that food does not taste good. He has no flank pain or bone pain. He had no neurologic complaints prior to the hospitalization. Current Medications: Unknown. Allergies: Naproxen Medical History: No history of collagen vascular disease. No previous radiation therapy. Hypertension and hyperlipidemia. Surgical History: Left ankle surgery secondary to a fracture. Family History: Father had throat cancer. Social History: He is now living with his son who is present with him today. Prior to his hospitalization last month, Mr. Jorge lived alone. He continues to smoke and has done so for about 55 years. Current Complaints / Review of Systems: ENT negative, pulmonary negative, cardiac negative, GI negative, negative, musculoskeletal positive for stiffness and pain in both ankles secondary to fractures in the past. Vital Signs: Performed on 02/18/2023 3:17 PM BMI - 19.149 kg/m2, Height - 75 in, Weight - 153.2 lbs, Temperature - 96.9 f, Pulse - 87 /min, Respiration - 18 /min, O2 Sat - 99 %, Pain - 0, Fatigue - 2 and BP - 110/ 76 mm(hg). Physical Exam:General: Alert, oriented, no distress. He appears chronically ill.Neurologic:Speech coherent. Answers to questions appropriate. Cranial nerves grossly intact. Motor strength is good and symmetrical in all extremities. Finger-nose exam intact. In wheelchair. Gait not tested.Neck: Supple. No masses. No cervical or supraclavicular lymphadenopathy.Pulmonary: Clear to percussion. On auscultation no rales, rhonchi, or wheezes. Breath sounds were distant. Heart: Distant heart sounds. Rhythm regular. No murmur or gallop noted.Abdomen: No distention. Bowel sounds normal. No organomegaly or mass or tenderness. No flank pain.Musculoskeletal: No bone or joint tenderness. The ankles had reduced mobility due to prior surgery for fractures bilaterally. Performance Status: KPS: 40 Pathology: Squamous cell carcinoma Lab: Imaging: See HPI Impression: Mr. Jorge has squamous cell carcinoma of the left lung based on cytology from bronchoscopy. He has an indeterminate nodule in the right adrenal gland. A PET scan was scheduled, but according to the patient's son who seems responsible and is a good historian, they were not notified. I discussed the importance of the PET scan. I reviewed that it could be very helpful in at least 4 situations. First, I discussed that the PET could show disease only in the known lung cancer, and in that situation the patient would be a candidate for SBRT. Based on his general condition I would not recommend surgery. Second, the PET scan could show just involvement of the left upper lobe cancer and the adrenal gland. Then a decision will have to be made about biopsying the adrenal gland. If it represents an isolated metastasis, then likely SBRT would be appropriate for both the left lung primary and the right adrenal gland. Third, if the PET showed uptake in the lung primary and left hilar/mediastinal nodes, he would be a candidate for radiation with external beam in traditional fashion plus minus chemotherapy. In the fourth scenario, if the PET scan showed distant metastatic disease, there would be little reason to do radiation at this time and the patient would riaz to be evaluated for hospice or systemic therapy. I explained all of these scenarios to the patient and his son and they agreed that the PET scan would be beneficial. We have rescheduled it for February. The basal cell carcinoma on the patient's left upper arm could be handled most expeditiously by surgery. If, for some reason, surgery is not performed, the cancer could be treated with an approximately 4-week course of external beam radiation. In addition, there are suspicious lesions on the dorsum of the right hand. I asked the patient to point those out when he goes in for further evaluation of the basal cell carcinoma of the left upper arm. Plan: PET rescheduled. Evaluation after. Signed by: 02/18/2023 4:44:55 PM <<Signature on File>> Time spent with patient: CPT Code: CPT Code:
== END 2023-02-23 23:59 | disposition home or self-care (01) ==
PROVIDERS: PCP Nurse Practitioner Family; Visit Provider Internal Medicine Hematology & Oncology
DX: C34.11 Malignant neoplasm of upper lobe, right bronchus or lung (principal); C44.619 Basal cell carcinoma of skin of left upper limb, including shoulder; F17.200 Nicotine dependence, unspecified, uncomplicated
CPT/HCPCS: 80053; 82607; 82728; 82746; 83540; 83550; 83615; 85025; 85045; 99204; 99205; 99213

== ENCOUNTER → 2023-02-25 12:57 | Outpatient (BNVA) | payer MEDICARE, MEDICAID, SELFPAY | PROVIDERS: PCP Internal Medicine Cardiovascular Disease; Visit Provider Dermatology | DX: C44.619 Basal cell carcinoma of skin of left upper limb, including shoulder (principal); L57.0 Actinic keratosis; L82.1 Other seborrheic keratosis; L72.0 Epidermal cyst; L81.4 Other melanin hyperpigmentation; L57.8 Other skin changes due to chronic exposure to nonionizing radiation | CPT/HCPCS: 17000; 99203 ==

== ENCOUNTER 2023-03-03 09:29 | Outpatient (CLI) | payer MEDICARE, MEDICAID, SELFPAY ==
--- NOTE | 2023-03-03 09:33 | CT_ITS ---
WS: [id number] CT CHEST, ABDOMEN, AND PELVIS TECHNIQUE: Contrast-enhanced CT of the chest, abdomen, and pelvis with coronal and sagittal reformatt ed images. CLINICAL INFORMATION: lung cancer COMPARISON: CT 01/08/2023 DLP: 651.[address] scans at [facility] use at least one of these dose optimization techniques: automated e xposure control; mA and/or kV adjustment per patient size (includes targeted exams where dose is matc hed to clinical indication); or iterative reconstruction. CT CHEST: Again seen is the LEFT upper lobe pulmonary mass measuring 2.5 x 1.2 cm today with surrounding spicul ation. This is increased in size compared to 01/08/2023 suspicious for neoplasm. Mild chronic emphysematous changes. No acute pulmonary infiltrates. Slight subsegmental atelectasis i n the lung bases. Normal caliber thoracic aorta. Coronary calcification. Proximal main pulmonary shannon shannan are normal. No mediastinal or hilar lymphadenopathy. No axillary lymphadenopathy. Hypertrophic c hanges thoracic spine with mild thoracic curve. No other suspicious pulmonary parenchymal abnormaliti es. CT ABDOMEN AND PELVIS: Mild diffuse fatty infiltration of the liver. Enlargement RIGHT hepatic lobe. Normal spleen. Normal G E junction. Small RIGHT adrenal nodule measuring 17mm is unchanged. Normal portal vein and splenic ve in. Mild fatty atrophy of the pancreas. Normal caliber abdominal aorta. Celiac and SMA are patent. Mo derate aortic atheromatous disease. Slightly aneurysmal RIGHT common iliac artery measuring 1.7 cm. N ormal renal parenchymal enhancement. No hydronephrosis. Sigmoid diverticulosis. No abdominal or pelvic lymphadenopathy. Moderate spondylitic changes lumbar spine. Serpiginous avascu lar necrosis in both femoral heads similar to previous. IMPRESSION: 1. Interval increase in size of the LEFT upper lobe pulmonary neoplasm today measuring 2.4 x 1.2 cm with slight surrounding spiculation. 2. No mediastinal or hilar lymphadenopathy. 3. No other suspicious pulmonary parenchymal abnormalities. 4. Stable RIGHT adrenal nodule measuring 14 mm likely adenoma. 5. 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 6. No other suspicious findings in the abdomen or pelvis.
[2023-03-03] MEDS: iohexol 350 mg/mL 100 mL Btl IV (11:32)
== END 2023-03-03 09:30 | disposition home or self-care (01) ==
LOC: RAD 09:29
PROVIDERS: PCP Internal Medicine Cardiovascular Disease; Visit Provider Internal Medicine Medical Oncology
DX: C34.90 Malignant neoplasm of unspecified part of unspecified bronchus or lung (principal); R91.1 Solitary pulmonary nodule
CPT/HCPCS: 71260; 74177; Q9967

== ENCOUNTER 2023-03-05 12:54 | Outpatient (CLI) | payer MEDICARE, MEDICAID, SELFPAY ==
--- NOTE | 2023-03-05 13:45 | MR_ITS ---
WS: [id number] MRI BRAIN WITH AND WITHOUT CONTRAST HISTORY: squamous cell carcinoma COMPARISON: 01/10/2023 TECHNIQUE: Multiplanar imaging performed through the brain with MultiHance 13 ml's IV. No acute infarct. Moderate atrophy and small vessel ischemic disease. Mild limitation by motion artif act. No midline shift. No significant interval change since the prior examination. No susceptibility artifact. Small lacunar infarct in the LEFT lizzette. Ventricles and extra-axial spaces are normal. Clivus and pituitary gland are normal. Visualized posterior fossa and brainstem are also normal. Postcontrast images are negative for masses or vascular malformations. Dural venous sinuses are normal. Paranasal sinuses: Well aerated with no significant disease. Mastoid air cells: Normal. Calvarium and scalp: Normal. IMPRESSION: 1. No evidence for metastatic disease to the brain. 2. Moderate atrophy and small vessel ischemic disease. No acute infarct.
[2023-03-05] MEDS: gadobenate dimeglumine 20 mL vial IV (13:57)
== END 2023-03-05 12:55 | disposition home or self-care (01) ==
LOC: RAD 12:55
PROVIDERS: PCP Internal Medicine Cardiovascular Disease; Visit Provider Internal Medicine Hematology & Oncology
DX: C34.90 Malignant neoplasm of unspecified part of unspecified bronchus or lung (principal); C44.91 Basal cell carcinoma of skin, unspecified; G31.9 Degenerative disease of nervous system, unspecified; I67.89 Other cerebrovascular disease
CPT/HCPCS: 70553; A9577

== ENCOUNTER 2023-04-15 08:21 | Outpatient (CLI) | payer MEDICARE, MEDICAID, SELFPAY ==
--- NOTE | 2023-04-15 | PET_ITS ---
PROCEDURE INFORMATION: Exam: PET/CT Skull Base to Mid-thigh Exam date and time: 04/15/2023 9:59 AM Age: 72 years old Clinical indication: Condition or disease; Primary cancer: Lung cancer; Follow-up oncological assessment; Prior surgery; Surgery date: 6+ months; Surgery type: Bronch; Additional info: Left upper lobe nodule LABS AND CLINICAL REPORTS: Glucose: 90 mg/dl Treatment strategy for malignancy (PET staging): Initial Staging (PI) TECHNIQUE: Imaging protocol: Following at least four-hour fasting and following the injection of radiopharmaceutical, low dose CT images were obtained. Then, PET images were obtained. Attenuation corrected images were constructed using the CT scan. Fused images of PET and CT were reviewed. The standardized uptake values (SUV) reported below are maximum values within a region of interest, expressed in gm/ml. Exam includes orbital meatal line to mid-thigh. Radiopharmaceutical: 14.74 mCi F-18 FDG (Fluorodeoxyglucose), IV. Time of imaging post radiopharmaceutical administration: 1 hour Injection site: Right forearm COMPARISON: CT chest abdpel w/*[id number] 03/03/2023 11:28 AM FINDINGS: Brain: Visualized brain has normal physiologic uptake. Pharynx: No abnormal uptake. Larynx: No abnormal uptake. Lungs, pleura and trachea: About 2 x 1 cm left upper lobe nodule with spiculated margins measures 12.2 SUV suggestive of malignancy. There are stable calcified granulomas posteriorly in the right middle lobe adjacent to the oblique interlobar fissure. Stable small linear opacities in the lower lobes represent subsegmental atelectasis or linear scars. There is no pleural effusion. Heart: Normal physiologic uptake. There is no cardiomegaly. Severe coronary artery calcification is present. There is no pericardial effusion. Mediastinal space: No abnormal uptake. Liver: No abnormal uptake. Gallbladder and bile ducts: No abnormal uptake. No calcified gallstones. Pancreas: No abnormal uptake. Spleen: No abnormal uptake. No splenomegaly. Adrenal glands: No abnormal uptake. No nodules. Kidneys and ureters: Normal physiologic uptake. No hydronephrosis. Stomach and bowel: Increased uptake in the ascending colon with no corresponding CT abnormality is likely benign. Intraperitoneal and retroperitoneal spaces: No abnormal uptake. No ascites. Urinary bladder: Normal physiologic uptake. Reproductive: No abnormal uptake. Vasculature: No abnormal uptake. No aortic aneurysm. Lymph nodes: No abnormal uptake. No lymphadenopathy in the head, neck, chest, abdomen, pelvis, and extremities. There is sequela of exposure to granulomatous disease with calcifications in normal size mediastinal and bilateral hilar lymph nodes. Bones/joints: No abnormal uptake in the visualized axial and appendicular skeleton. Avascular necrosis in bilateral femoral heads. Soft tissues: No abnormal uptake in the visualized head, neck, chest, abdomen, pelvis, and extremities. IMPRESSION: Intense uptake of 12.2 SUV within the left upper lobe nodule suggestive of malignancy. No FDG avid lymphadenopathy in the chest, no evidence of FDG avid distant metastatic disease. Sequela of exposure to granulomatous disease in the chest. MTDD
== END 2023-04-15 08:22 | disposition home or self-care (01) ==
LOC: RAD 09:40
PROVIDERS: PCP Internal Medicine Cardiovascular Disease; Visit Provider Internal Medicine Pulmonary Disease
DX: R91.1 Solitary pulmonary nodule (principal); Z85.828 Personal history of other malignant neoplasm of skin
CPT/HCPCS: 77815; 78815; A9552

== ENCOUNTER 2023-04-22 08:47 | Oncology outpatient (recurring) (ONCR) | payer MEDICARE, MEDICAID, SELFPAY | END 2023-04-24 23:59 | disposition home or self-care (01) | PROVIDERS: PCP Internal Medicine Cardiovascular Disease; Visit Provider Radiology Radiation Oncology | DX: Z51.0 Encounter for antineoplastic radiation therapy (principal); C34.12 Malignant neoplasm of upper lobe, left bronchus or lung | CPT/HCPCS: 77300; 77301; 77334; 77338; 77470 ==

== ENCOUNTER 2023-05-01 08:48 | Oncology outpatient (recurring) (ONCR) | payer MEDICARE, MEDICAID, SELFPAY ==
--- NOTE | 2023-05-01 11:07 | N.ONRD TS_ITS ---
Radiation Oncology Treatment Summary/ Treatment Management Note Patient: Ned MR#: [id number] : 1950> Age: 72> Sex: Male Dictated by: Dr. Emma Patrick Date of Service: 05/01/2023 Referring Physician(s) : Diagnosis: C34.90 - Malignant neoplasm of unspecified part of unspecified bronchus or lung, Diagnosed 01/09/2023 (Active) Radiotherapy to Date: Course: Lung SBRT 2023, Treatment Site: Lung L SBRT, Ref. ID: PTV, Energy: 6X, Dose/Fx (cGy): 1,200, #Fx: 4 / 4, Dose Correction (cGy): 0, Total Dose Delivered (cGy): 4,800, Start Date: 04/28/2023, End Date: 05/01/2023, Elapsed Days: 3 Vital signs: BMI - 19.224 kg/m2, Height - 75 in, Weight - 153.8 lbs, Temperature - 97.8 f, Pulse - 77 /min, Respiration - 18 /min, O2 Sat - 90 % (low), Pain - 0, Fatigue - 0 and BP - 112/ 77 mm(hg). Clinical Summary: The patient tolerated RT well. He had essentially no acute side effects. PET ordered for 12 weeks Plan: End of treatment today. Continue on the above medication until the skin reaction resolves. Follow up in one month. Signed by: Dr. Emma Patrick>05/01/2023 11:05:34 AM <<Signature on File>>
== END 2023-05-01 23:59 | disposition home or self-care (01) ==
PROVIDERS: PCP Internal Medicine Cardiovascular Disease; Visit Provider Radiology Radiation Oncology
DX: C34.90 Malignant neoplasm of unspecified part of unspecified bronchus or lung (principal); C44.91 Basal cell carcinoma of skin, unspecified; F10.10 Alcohol abuse, uncomplicated; E46 Unspecified protein-calorie malnutrition; I10 Essential (primary) hypertension; Z79.899 Other long term (current) drug therapy
CPT/HCPCS: 77336; 77373; 99024

== ENCOUNTER 2023-06-05 13:21 | Oncology outpatient (recurring) (ONCR) | payer MEDICARE, MEDICAID, SELFPAY ==
[2023-06-05 14:25] LABS: Basophils % 0.6 %; Eosinophils # 0.1 10^3/uL (0.0-0.8); Eosinophils % 1.3 %; Hematocrit 47.9 % (37-53); Lymphocytes # 1.9 10^3/uL (0.8-4.8); Lymphocytes % 29.7 %; Mean Corpuscular HGB Conc 34.2 g/dL (30-55); Mean Corpuscular Hemoglobin 30.5 pg (27-33); Mean Corpuscular Volume 89.2 fl (82-101); Mean Platelet Volume 9.6 fL (7.4-10.4); Monocytes # 0.4 10^3/uL (0.2-0.9); Monocytes % 5.9 %; Neutrophils # 3.87 10^3/uL (1.8-7.7); Neutrophils % 62.2 %; Nucleated Red Blood Cells % 0 %; Platelet Count 160 10^3/cmm (157-399); Red Blood Count 5.37 10^6/uL (3.85-5.65); Red Cell Distribution Width 16.5 % (12.1-15.1); White Blood Count 6.23 10^3/uL (3.29-11.43)
[2023-06-05 14:33] LABS: Alanine Aminotransferase 13 U/L (0-41); Albumin Level 3.8 g/dL (3.5-5.2); Alkaline Phosphatase 103 U/L (40-130); Anion Gap 14.6 (5-19); Aspartate Amino Transferase 29 U/L (0-40); Blood Urea Nitrogen 9 mg/dL (8-23); Calcium 9.1 mg/dL (8.5-10.5); Carbon Dioxide 26 mmol/L (22-29); Chloride 100 mmol/L (98-107); Globulin 3.7 g/dL (1.3-4.6); Glucose 106 mg/dL (65-115); Osmolality Calculated 281 mOsm/kg (285-295); Potassium 4.6 mmol/L (3.5-5.1); Sodium 136 mmol/L (136-145); Total Bilirubin 0.6 mg/dL (0.15-1.2); Total Protein 7.5 g/dL (6.6-8.7)
--- NOTE | 2023-06-05 14:42 | ONCRAD EPV_ITS ---
Radiation Oncology Established Patient Visit Patient: Xavi Jorge [id number] : 1950> Age: 73> Sex: Male> Dictated by: Dr. Emma Patrick Date of Service: 06/05/2023 Referring Physician(s) : Dr. Zhao Diagnosis: C34.90 - Malignant neoplasm of unspecified part of unspecified bronchus or lung, Diagnosed 01/09/2023 (Active) Radiotherapy to Date: Course: Lung SBRT 2023, Treatment Site: Lung L SBRT, Ref. ID: PTV, Energy: 6X, Dose/Fx (cGy): 1,200, #Fx: , Dose Correction (cGy): 0, Total Dose Delivered (cGy): 4,800, Start Date: 04/28/2023, End Date: 05/01/2023, Elapsed Days: 3, Current History: Current Medications: Allergies: Current Complaints / Review of Systems: . Patient has had no respiratory changes. His appetite is remain good although he cannot gain any weight. Vital Signs: Performed on 06/05/2023 2:35 PM BMI - 18.374 kg/m2 (low), Height - 75 in, Weight - 147 lbs, Temperature - 98.8 f, Pulse - 94 /min, Respiration - 18 /min, O2 Sat - 96 %, Pain - 0, Fatigue - 5 and BP - 151/ 95 mm(hg)(high). Physical Exam: General: Alert and oriented x 3. No acute distress. HEENT: Normocephalic, atraumatic. Extraocular Movements Intact: Pupils Equal, Round, Reactive to Light . LUNGS: Clear to auscultation bilaterally without rales, rhonchi or wheeze. HEART: Regular rate and rhythm . ABDOMEN: Soft, nontender, nondistended patient is quite thin EXTREMITIES: No peripheral edema is identified NEUROLOGIC: Alert and orient x 3. Gait speech within normal limits. Performance Status: 100 Lab: None pending. Pathology: Primary, c34.90 - malignant neoplasm of unspecified part of unspecified bronchus or lung, Diagnosed 01/09/2023 (active) . Imaging: See HPI Impression: Non-small cell carcinoma lung status post SBRT Plan: At this time he is doing well. He is recovered and essentially had no toxicity. Is been a little over a month since he completed treatment. He will be visiting with Dr. Zhao today as well. Will see him back on a as needed basis as I am sure he will have additional scans down the line. Signed by: 06/05/2023 2:40:58 PM <<Signature on File>> Time spent with patient:15 CPT Code: CPT Code:
== END 2023-06-24 23:59 | disposition home or self-care (01) ==
PROVIDERS: Internal Medicine Medical Oncology; PCP Internal Medicine Cardiovascular Disease; Visit Provider Radiology Radiation Oncology
DX: C34.90 Malignant neoplasm of unspecified part of unspecified bronchus or lung (principal); C44.91 Basal cell carcinoma of skin, unspecified; F10.10 Alcohol abuse, uncomplicated; E46 Unspecified protein-calorie malnutrition; I10 Essential (primary) hypertension; Z79.899 Other long term (current) drug therapy
CPT/HCPCS: 36415; 80053; 85025; 99024; 99213

== ENCOUNTER 2023-07-29 09:26 | Outpatient (CLI) | payer MEDICARE, MEDICAID, SELFPAY ==
--- NOTE | 2023-07-29 09:48 | PETR_ITS ---
PROCEDURE INFORMATION: Exam: PET/CT Skull Base to Mid-thigh Exam date and time: 07/29/2023 8:31 AM Age: 73 years old Clinical indication: Condition or disease; Primary cancer: Lung cancer; Follow-up oncological assessment; Additional info: Lung cancer S/P sbrt LABS AND CLINICAL REPORTS: Glucose: 89 mg/dl Treatment strategy for malignancy (PET staging): Restaging (PS) TECHNIQUE: Imaging protocol: Following at least four-hour fasting and following the injection of radiopharmaceutical, low dose CT images were obtained. Then, PET images were obtained. Attenuation corrected images were constructed using the CT scan. Fused images of PET and CT were reviewed. The standardized uptake values (SUV) reported below are maximum values within a region of interest, expressed in gm/ml. Exam includes orbital meatal line to mid-thigh. Radiopharmaceutical: 12.8 mCi F-18 FDG (Fluorodeoxyglucose), IV. Time of imaging post radiopharmaceutical administration: 1 hour Injection site: Right antecubital [facility] [id number] 04/15/2023 9:59 AM FINDINGS: Limitations: The examination is slightly technically suboptimal secondary to the scan to injection time outside of recommended parameters (45-75 minutes). Reported scan to injection time of 43.8 minutes. Injection to scan times outside of recommended parameters can result in decreased PET sensitivity and limit the utility of comparison of SUV values to prior or subsequent exams. Brain: Visualized brain has normal physiologic uptake. Paranasal sinuses: Moderate non radiotracer avid mucosal thickening of the left maxillary sinus is present consistent with benign chronic sinusitis. Pharynx: No abnormal uptake. Larynx: No abnormal uptake. Lungs, pleura and trachea: No abnormal uptake. A solid nodule in the lateral left upper lobe with slightly spiculated margins on series 3, image 103 measures 0.9 x 0.7 cm (previously 2.0 x 1.0 cm) and is not radiotracer avid, SUV max 0.5 (previously 12.2). Mild bilateral centrilobular emphysematous changes are present. Lung calcified granulomas are noted Heart: Normal physiologic uptake. Mediastinal space: No abnormal uptake. Liver: No abnormal uptake. Gallbladder and bile ducts: No abnormal uptake. Pancreas: No abnormal uptake. Spleen: No abnormal uptake. Adrenal glands: No abnormal uptake. Kidneys and ureters: Normal physiologic uptake. Stomach and bowel: No abnormal uptake. There is physiologic appearing uptake in the region of the ileocecal valve. Vasculature: No abnormal uptake. There are diffuse atherosclerotic calcifications. Lymph nodes: No abnormal uptake. Small, non radiotracer avid calcified bilateral hilar and mediastinal lymph nodes are present. Skeleton: No abnormal uptake in the visualized axial and appendicular skeleton. Serpiginous non radiotracer avid regions of sclerosis are noted in the bilateral femoral heads consistent with avascular necrosis on series 3, image 228. The bones appear demineralized. Degenerative changes in the spine are present with extensive degenerative spondylosis in the thoracic and lumbar spine. Soft tissues: No abnormal uptake in the visualized head, neck, chest, abdomen, pelvis, and extremities. METRICS: Mediastinal blood pool: SUV max 1.7 PET/PET skulltothigh SUBSEQ [id number] IMPRESSION: 1. A previously noted radiotracer avid left upper lobe nodule is decreased in size since the prior PET-CT with interval resolution of previously noted abnormal uptake compatible with a response to therapy. 2. No new areas of radiotracer avid malignancy. 3. Old granulomatous changes within the thorax. 4. Bilateral femoral head avascular necrosis. 5. Additional nonurgent findings as detailed above.
== END 2023-07-29 09:27 | disposition home or self-care (01) ==
LOC: RAD 09:26
PROVIDERS: PCP Internal Medicine Cardiovascular Disease; Visit Provider Radiology Radiation Oncology
DX: C34.90 Malignant neoplasm of unspecified part of unspecified bronchus or lung (principal); R91.1 Solitary pulmonary nodule; M87.852 Other osteonecrosis, left femur; M87.851 Other osteonecrosis, right femur
CPT/HCPCS: 78815; A9552

== ENCOUNTER 2023-08-11 08:08 | Oncology outpatient (recurring) (ONCR) | payer MEDICARE, MEDICAID, SELFPAY ==
--- NOTE | 2023-08-11 10:01 | ONCRAD EPV_ITS ---
Radiation Oncology Established Patient Visit Patient: Xavi Jorge [id number] : 1950 Age: 73 Sex: Male Dictated by: Dr. Emma Patrick Date of Service: 08/11/2023 Referring Physician(s) : Diagnosis: C34.90 - Malignant neoplasm of unspecified part of unspecified bronchus or lung, Diagnosed 01/09/2023 (Active) Patient returns today for the results of his PET scan which was done on 07/29/2023. The results showed the uptake in the left upper lobe nodule had markedly decreased with interval resolution of the previously noted uptake. No new areas were noted. Subjectively he is doing fairly well. He is eating as best he can. His respiratory status is stable. Radiotherapy to Date: Course: Lung SBRT 2023, Treatment Site: Lung L SBRT, Ref. ID: PTV, Energy: 6X, Dose/Fx (cGy): 1,200, #Fx: 4 / 4, Dose Correction (cGy): 0, Total Dose Delivered (cGy): 4,800, Start Date: 04/28/2023, End Date: 05/01/2023, Elapsed Days: 3 Current History: Current Medications: Allergies: Current Complaints / Review of Systems: . Vital Signs: Performed on 08/11/2023 8:18 AM BMI - 18.599 kg/m2, Height - 75 in, Weight - 148.8 lbs, Temperature - 97.2 f, Pulse - 102 /min (high), Respiration - 16 /min, O2 Sat - 97 %, Pain - 6, Fatigue - 6 and BP - 128/ 84 mm(hg). Physical Exam: General: Alert and oriented x 3. No acute distress. HEENT: Normocephalic atraumatic. Pupils are equal, sclera injected, extraocular muscles intact LUNGS respiratory rate is regular nonlabored. HEART: Regular rate and rhythm ABDOMEN: Patient is quite thin with minimal adipose tissue EXTREMITIES: No peripheral edema is identified NEUROLOGIC: Patient is alert and oriented x 3. He walks with a cane. Speech is intact. Performance Status: 72 Lab: None pending. Pathology: Primary, c34.90 - malignant neoplasm of unspecified part of unspecified bronchus or lung, Diagnosed 01/09/2023 (active) . Imaging: See HPI Impression: Non-small cell carcinoma lung status post SBRT in April. Plan: His current scan showed good resolution of activity. We talked about follow-up scans and how difficult it is for him to get in for appointments. At this point we agreed on a [address] scan. I have encouraged him to call if any problems arise in the interim. Signed by: 08/11/2023 10:00:29 AM <<Signature on File>> Time spent with patient: 20 CPT Code: CPT Code:
== END 2023-08-24 23:59 | disposition home or self-care (01) ==
LOC: ONCMED 08:09
PROVIDERS: PCP Internal Medicine Cardiovascular Disease; Visit Provider Radiology Radiation Oncology
DX: C34.12 Malignant neoplasm of upper lobe, left bronchus or lung (principal); Z92.3 Personal history of irradiation
CPT/HCPCS: 99213

== ENCOUNTER 2023-09-12 07:58 | Outpatient (CLI) | payer MEDICARE, MEDICAID, SELFPAY ==
--- NOTE | 2023-09-12 08:07 | CT_ITS ---
WS: [id number] CT HEAD NONCONTRAST HISTORY: TRAUMATIC INJURY OF HEAD TECHNIQUE: Contiguous axial imaging performed through the brain in 2.5 mm imaging. Bone and soft tiss ue windows. Sagittal and coronal reformats reviewed. All CT scans at [facility] use at least one of these dose optimization techniques: automated exposure control; mA and/or kV adjustment per pa tient size (includes targeted exams where dose is matched to clinical indication); or iterative recon struction. DLP: 1114.08 mGy.cm COMPARISON: 01/08/2023 No acute intracranial hemorrhage, midline shift or mass effect. Moderate volume loss and small vessel ischemic disease with similar appearance compared to the prior study of 01/08/2023. There are no acute or subacute blood products identified. No midline shift. Ventricles: Normal size with no hydrocephalus. No intraventricular blood. No inferior displacement of the cerebellar tonsils. Paranasal sinuses: Small mucous retention cyst in the anterior RIGHT maxillary sinus. No air-fluid le vels. Mastoid air cells: Well pneumatized. Calvarium and scalp: Skull is intact with no soft tissue edema or swelling. CT/CT head wo con* [id number] IMPRESSION: 1. No acute intracranial hemorrhage or edema. 2. Moderate volume loss and small vessel ischemic disease. Similar to the stud y of 01/08/2023.
== END 2023-09-12 07:59 | disposition home or self-care (01) ==
LOC: RAD 07:58
PROVIDERS: PCP Internal Medicine Cardiovascular Disease; Visit Provider Internal Medicine
DX: S09.90XA Unspecified injury of head, initial encounter (principal); J34.1 Cyst and mucocele of nose and nasal sinus; I67.82 Cerebral ischemia; X58.XXXA Exposure to other specified factors, initial encounter
CPT/HCPCS: 70450

== ENCOUNTER 2024-10-06 19:20 | Observation (INO) | payer MEDICARE, MEDICAID, SELFPAY ==
--- OUTSIDE RECORDS SUMMARY | 2024-06-14 09:00 | XMS_ITS ---
Author Organization [facility] Address [address] [place] [address] Care Team Providers Care Exchange Mechanic Name Role Phone Ron Araujo Primary Care Provider [phone] REASON FOR VISIT 3 MONTH F/U Encounters Encounter Location Date Provider Diagnosis [facility] [address] [place] [phone] 06/14/2024 Ron Araujo Plan Of Treatment No Information Progress Notes * GILLIAN PICHARDO ODOB: [birth year] (74 yo M)Acc No.[id number]:06/14/2024 Progress Notes Patient: GILLIAN CLEMENTS Provider: Cathryn Araujo MD :1950 A ge:74 Y S ex:Male Date:06/14/2024 Address:[address] [place], [place] [id number] Subjective: * Chief Complaints: * 3 MONTH F/U Billing Information: * Procedure Codes: Care Plan Details* * Electronic signature of Cory Araujo MD on 10/07/2024 at 06:41 AM CDT Sign off status: Pending * Provider: Cathryn Araujo MD Date: 06/14/2024 Generated for Judith hoover/Kassie/Milaitting on: 10/07/2024 06:41 AM CDT
--- OUTSIDE RECORDS SUMMARY | 2024-06-14 09:00 | XMS_ITS ---
Author Organization [facility] Address [address] [place] [address] Care Team Providers Care Environmental Technology Professor Name Role Phone Ron Araujo Primary Care Provider REASON FOR VISIT 3 MONTH F/U Encounters Encounter Location Date Provider Diagnosis [facility] [address] [place] [phone] 06/14/2024 Ron Araujo Plan Of Treatment No Information Progress Notes * GILLIAN PICHARDO ODOB: [birth year] (74 yo M)Acc No.[id number]:06/14/2024 Progress Notes Patient: GILLIAN CLEMENTS Provider: Cathryn Araujo MD :1950 A ge:74 Y S ex:Male Date:06/14/2024 Address:[address] [place], [place] [id number] Subjective: * Chief Complaints: * 3 MONTH F/U Billing Information: * Procedure Codes: Care Plan Details* * Electronic signature of Cory Araujo MD on 10/06/2024 at 11:05 PM CDT Sign off status: Pending * Provider: Cathryn Araujo MD Date: 06/14/2024 Generated for Judith hoover/Kassie/Milaitting on: 10/06/2024 11:05 PM CDT
[2024-10-06 19:21] VITALS: BP 113/77; PULSE 110; RESP 18; TEMP 36.8; O2SAT 91
--- NOTE | 2024-10-06 19:24 | W.ED.WEAKNES ---
HPI - Weakness General: Chief complaint: Weakness Stated complaint: WEAKNESS Time Seen by Provider: 10/06/24 19:23 History of Present Illness: 74-year-old male with a history of alcoholism, tobacco dependence, non-small cell lung cancer, hyperlipidemia and hypertension who presents to the emergency room with generalized weakness. He tells me his daughter called ambulance. He says he is been having some balance issues which he attributes a lot to previous broken ankles. He still smokes about a half a pack per day. He says he had 1 sip of [place] honey whiskey this morning. He says he only drinks 1 drink per day now. He feels that he got overheated because he does not have air conditioning in his home. No chest pain. No abdominal pain. No nausea or vomiting. Currently he is completely alert awake and oriented and has no focal motor deficits. Related Data Home Medications ?Medication ?Instructions ?Recorded ?Confirmed benazepril 10 mg tablet 10 mg PO DAILY 02/12/23 06/05/23 Previous Rx's ?Medication ?Instructions ?Recorded folic acid 1 mg tablet 1 mg PO DAILY #30 tabs 02/12/23 Allergies Allergy/AdvReac Type Severity Reaction Status Date / Time naproxen (From Aleve) Allergy Unknown Verified 02/12/23 14:00 Review of Systems Narrative: Constitutional symptoms: Negative except as documented in HPI. Skin symptoms: Negative except as documented in HPI. Eye symptoms: Negative except as documented in HPI. ENMT symptoms: Negative except as documented in HPI. Respiratory symptoms: Negative except as documented in HPI. Cardiovascular symptoms: Negative except as documented in HPI. Gastrointestinal symptoms: Negative except as documented in HPI. Genitourinary symptoms: Negative except as documented in HPI. Musculoskeletal symptoms: Negative except as documented in HPI. Neurologic symptoms: Negative except as documented in HPI. Psychiatric symptoms: Negative except as documented in HPI. Endocrine symptoms: Negative except as documented in HPI. [facility] PFSH: Medical History (Updated 10/06/24 @ 23:25 by Susan Hook MD) Non-small cell lung cancer Hyperlipidemia Hypertension Surgical History History of ankle surgery Family History Father Cancer throat Social History (Reviewed 06/05/23 @ 14:54 by JUAN CARLOS Díaz Smoking and tobacco/nicotine status: light tobacco/nicotine user cigarettes Packs smoked per day: 0.25 Years cigarettes smoked: 55 Physical Exam Narrative: EXAM NARRATIVE: General: Alert, no acute distress. Skin: Warm, dry. Head: Normocephalic, atraumatic. Neck: Supple, trachea midline. Eye: Extraocular movements are intact. Ears, nose, mouth and throat: mucosa moist. Cardiovascular: Regular, Normal peripheral perfusion. Respiratory: Lungs are clear to auscultation, respirations are non-labored, breath sounds are equal, Symmetrical chest wall expansion. Gastrointestinal: Soft, Nontender, Non distended Musculoskeletal: Normal ROM, no deformity. Neurological: Alert and oriented, No focal neurological deficit observed. Psychiatric: Cooperative, appropriate mood & affect. Course Vital Signs: Vital signs: Vital Signs Temperature 98.3 F 10/06/24 19:21 Pulse Rate 102 H 10/06/24 22:13 Respiratory Rate 18 10/06/24 19:21 Blood Pressure 109/84 10/06/24 22:13 Pulse Oximetry 100 10/06/24 22:13 Oxygen Delivery Me thod Room Air 10/06/24 22:13 MDM - Weakness Medical Decision Making Medical decision making: Differential diagnosis for patient presenting with generalized weakness including but not limited to and based on the above HPI, review of systems and physical exam: Sepsis. Dehydration. Renal failure. Electrolyte abnormalities. Anemia. Congestive heart failure. Hypotension. Coronary syndrome. Hepatitis. Cirrhosis. Infections such as pneumonia, urinary tract infection, Tick bourne illness, Cellulitis, Viral infections including influenza and Covid-19. Workup: labwork and lab/exam driven imaging ordered to evaluate, rule in and rule out above pathologies. CT head: No acute intracranial process. no intracranial hemorrhage, no evidence of infarct. no evidence of acute fracture.This was reviewed and interpreted by myself the ER physician. Chest x-ray: No acute process. No infiltrate. No pneumothorax. This was reviewed and interpreted by myself the emergency room physician. I also reviewed the radiology report. Lab Review: Laboratory results were reviewed and interpreted by myself the emergency room physician. Significant leukocytosis with a left shift with a white count of 21,000. No anemia. Patient does have some acute renal insufficiency with a BUN/creatinine of 15 and 1.4 with his baseline creatinine being around 0.6-0.8. Urinalysis does show 6-10 whites and a few reds and is leukocyte Estrace positive. Not super impressive for urinary tract infection at this point I do not have any other source. CT of the chest abdomen pelvis: No acute processes. This was reviewed and interpreted by myself the emergency room physician. I also reviewed the radiology report. I reviewed the patient's medical record. Reexamination: Patient's blood pressure was little soft initially and his heart rate was up into the 1 teens. He has remained lucid here. I did speak with his family who said that he was quite confused and talking out of his head for a while. The patient seems to think it was just related to heat. However given vital signs and white count and a lactate of 2.9 initially I am treating him as if he is septic. Assessment and plan: Possible sepsis Leukocytosis Urinary tract infection Metabolic encephalopathy -2.5 L normal saline bolus. Fluid volumes based on ideal body weight. -Broad-spectrum antibiotics were administered. Cefepime and Zyvox -Sepsis quality measures. -Lactic acid with a reflex was ordered. -Blood cultures were ordered. -I discussed the patient with the hospitalist on-call who is admitting the patient. - Discussed findings and plan with patient. Answered any questions. - All laboratory values were reviewed and interpreted personally by myself, the ER physician - All imaging was reviewed and interpreted personally by myself, the ER physician. - Evaluation and treatment of this problem were appropriate in the emergency setting Lab Data 10/06/24 19:30 10/06/24 19:[address] 10/06/24 19:27 IMPRESSION: 1. No acute intracranial abnormality. 2. Small-vessel ischemic disease. Chest X-Ray 10/06/24 19:28 IMPRESSION: No acute findings. ADDENDUM: 10/06/242025 Scarring in the left mid lung field laterally is redemonstrated with the previously seen 17 mm nodular density lateral aspect of the left mid lung field not visualized on today's examination. Interval resection? Calcified granuloma projecting through the right 5th rib anteriorly is seen to better advantage on the chest CT dated 03/03/2023 and likely of clinical significance. Calcified lymph nodes in the right hilum also redemonstrated and similar given differences technique. Chest/Abdomen/Pelvis CT 10/06/24 22:09 IMPRESSION: 1. Scarring in the periphery of the left upper lobe (series 4, image 37). The previously seen pulmonary nodule in this location on the PET-CT dated 07/29/2023 is not present on today's examination. 2. There is a 4 mm pulmonary nodule in the periphery of the right lower lobe (series 4, image 46). Close attention on follow-up imaging recommended. 3. Aneurysmal dilatation of the distal thoracic aorta measuring up to 4.0 cm, previously 3.5 cm (series 6, image 66). IMPRESSION: 1. No bowel obstruction or inflammatory process associated with the bowel. 2. No free air or significant free fluid in the abdomen or pelvis. 3. No evidence of appendicitis. Laboratory Results WBC 21.41 10^3/uL (3.29-11.43) H 10/06/24 19:30 RBC 3.47 10^6/uL (3.85-5.65) L 10/06/24 19:30 Hgb 13.40 g/dL (11.27-16.99) 10/06/24 19:30 Hct 36.6 % (37-53) L 10/06/24 19:30 MCV 105.5 fl (82-101) H 10/06/24 19:30 MCH 38.6 pg (27-33) H 10/06/24 19:30 MCHC 36.6 g/dL (30-55) 10/06/24 19:30 RDW 13.3 % (12.1-15.1) 10/06/24 19:30 Plt Count 90 10^3/cmm (157-399) L 10/06/24 19:30 MPV 11.3 fL (7.4-10.4) H 10/06/24 19:30 Neut % (Auto) 85.7 % 10/06/24 19:30 Lymph % (Auto) 7.1 % 10/06/24 19:30 [place] % (Auto) 3.9 % 10/06/24 19:30 Eos % (Auto) 0.0 % 10/06/24 19:30 Baso % (Auto) 0.1 % 10/06/24 19:30 Neut # (Auto) 18.35 10^3/uL (1.8-7.7) H 10/06/24 19:30 Lymph # (Auto) 1.5 10^3/uL (0.8-4.8) 10/06/24 19:30 [place] # (Auto) 0.8 10^3/uL (0.2-0.9) 10/06/24 19:30 Eos # (Auto) 0.0 10^3/uL (0.0-0.8) 10/06/24 19:30 Baso # (Auto) 0.0 10^3/uL (0.0-0.1) 10/06/24 19: Nucleated RBC % (auto) 0 % 10/06/24: Nucleated RBCs # 0.0 /100WBC 10/06/24 19:30 Sodium 132 mmol/L (136-145) L 10/06/24 19:30 Potassium 4.2 mmol/L (3.5-5.1) 10/06/24 19:30 Chloride 98 mmol/L (98-107) 10/06/24 19:30 Carbon Dioxide 17 mmol/L (22-29) L 10/06/24 19:30 Anion Gap 21.2 (5-19) H 10/06/24 19:30 BUN 15 mg/dL (8-23) 10/06/24 19:30 Creatinine 1.4 mg/dL (0.7-1.2) H 10/06/24 19:30 GFR Calculation Not Reportable 10/06/24: Glucose 97 mg/dL (65-115) 10/06/24 19:30 Calculated Osmolality 275 mOsm/kg (285-295) L 10/06/24 19:30 Lactic Acid 2.9 mmol/L (0.5-2.2) H 10/06/24 19:30 Lactic Acid (Sepsis) 1.7 mmol/L (0.5-2.2) 10/06/24 22:33 Calcium 8.3 mg/dL (8.5-10.5) L 10/06/24 19:30 Total Bilirubin 1.0 mg/dL (0.15-1.2) 10/06/24 19:30 AST 30 U/L (0-40) 10/06/24 19:30 ALT 16 U/L (0-41) 10/06/24 19:30 Alkaline Phosphatase 132 U/L (40-130) H 10/06/24 19:30 Ammonia 30 umol/L (16-60) 10/06/24 19:30 Total Protein 6.3 g/dL (6.6-8.7) L 10/06/24 19: Albumin 2.7 g/dL (3.5-5.2) L 10/06/24 19: Globulin 3.6 g/dL (1.3-4.6) 10/06/24 19:30 Urine Color [place] (Yellow) A 10/06/24 21: Urine Appearance Cloudy (CLEAR) A 10/06/24: Urine pH 5.5 (5-7) 10/06/24: Ur Specific [place] 1.015 (1.005-1.030) 10/06/24: Urine Protein 1+ (Negative) A 10/06/24: Urine Glucose (UA) Negative (Normal) 10/06/24: Urine Ketones Trace (Negative) 10/06/24 21: Urine Blood 3+ (Negative) A 10/06/24: Urine Nitrate Negative (Negative) 10/06/24: Urine Bilirubin 1+ (Negative) H 10/06/24: Urine Urobilinogen 1.0 mg/dL (Negative) 10/06/24 21:30 Ur Leukocyte Esterase 1+ (Negative) A 10/06/24: Urine RBC 21-50 /hpf (0-2) H 10/06/24 21: Urine WBC 6-10 /hpf (0-5) 10/06/24 21:30 Ur Squamous Epith Cells 0-5 /hpf (0-5) 10/06/24 21: Amorphous Sediment Not Reportable 10/06/24: Urine Bacteria None seen /hpf (NONE) 10/06/24: Hyaline Casts 7.01 /lpf 10/06/24 21:30 Urine Mucus 3+ /hpf 10/06/24 21:30 Urine Yeast Trace /hpf 10/06/24 21: Ethyl Alcohol < 10 mg/dL (0-10) 10/06/24 19:30 All radiology interpretation(s) finalized by discharge Discharge Plan Discharge Patient Disposition: Placed in Observation Clinical Impression: Encephalopathy, Leukocytosis, Urinary tract infection Coding Level of Care Code ED Cycle Counter for Roopa Payton
--- NOTE | 2024-10-06 19:27 | CTR_ITS ---
PROCEDURE INFORMATION: Exam: CT Head Without Contrast Exam date and time: 10/06/2024 8:18 PM Age: 74 years old Clinical indication: Walking, difficulty; Additional info: Balance issues TECHNIQUE: Imaging protocol: Computed tomography of the head without contrast. Radiation optimization: All CT scans at this facility use at least one of these dose optimization techniques: automated exposure control; mA and/or kV adjustment per patient size (includes targeted exams where dose is matched to clinical indication); or iterative reconstruction. 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 Subcortical and periventricular white matter changes consistent with small-vessel ischemic disease in the appropriate clinical setting. Small-vessel ischemic disease. No acute intracranial abnormality. Cerebral ventricles: No ventriculomegaly. Paranasal sinuses: Visualized sinuses are unremarkable. No fluid levels. Mastoid air cells: Visualized mastoid air cells are well aerated. Bones: Unremarkable. No acute fracture. Soft tissues: Unremarkable. CT/CT head wo con* [id number] IMPRESSION: 1. No acute intracranial abnormality. 2. Small-vessel ischemic disease.
--- NOTE | 2024-10-06 19:28 | XRR_ITS ---
PROCEDURE INFORMATION: Exam: XR Chest Exam date and time: 10/06/2024 7:49 PM Age: 74 years old Clinical indication: Other: General weakness TECHNIQUE: Imaging protocol: Radiologic exam of the chest. Views: 1 view. COMPARISON: CT chest abdpel w/*[id number] 03/03/2023 11:28 AM FINDINGS: Lungs: Unremarkable. No consolidation. Pleural spaces: Unremarkable. No pleural effusion. No pneumothorax. Heart/Mediastinum: Unremarkable. No cardiomegaly. Bones/joints: Unremarkable. XR/XR chest 1V portable [id number] IMPRESSION: No acute findings.
[2024-10-06 19:41] VITALS: BP 115/76; PULSE 110; O2SAT 98
[2024-10-06 19:41] LABS: Hematocrit 36.6 % (37-53); Hemoglobin 13.40 g/dL (11.27-16.99); Mean Corpuscular HGB Conc 36.6 g/dL (30-55); Mean Corpuscular Hemoglobin 38.6 pg (27-33); Mean Corpuscular Volume 105.5 fl (82-101); Nucleated Red Blood Cells % 0 %; Platelet Count 90 10^3/cmm (157-399); Red Blood Count 3.47 10^6/uL (3.85-5.65); White Blood Count 21.41 10^3/uL (3.29-11.43)
[2024-10-06 19:57] LABS: Alanine Aminotransferase 16 U/L (0-41); Albumin Level 2.7 g/dL (3.5-5.2); Alkaline Phosphatase 132 U/L (40-130); Anion Gap 21.2 (5-19); Aspartate Amino Transferase 30 U/L (0-40); Blood Urea Nitrogen 15 mg/dL (8-23); Calcium 8.3 mg/dL (8.5-10.5); Carbon Dioxide 17 mmol/L (22-29); Chloride 98 mmol/L (98-107); Globulin 3.6 g/dL (1.3-4.6); Glucose 97 mg/dL (65-115); Osmolality Calculated 275 mOsm/kg (285-295); Potassium 4.2 mmol/L (3.5-5.1); Sodium 132 mmol/L (136-145); Total Protein 6.3 g/dL (6.6-8.7)
[2024-10-06 19:58] LABS: Lactic Sepsis W/Reflex 2.9 mmol/L (0.5-2.2)
[2024-10-06 20:04] LABS: Ammonia 30 umol/L (16-60)
[2024-10-06 20:06] LABS: Alcohol Level < 10 mg/dL (0-10)
[2024-10-06 21:05] VITALS: BP 109/81; PULSE 101; O2SAT 100
[2024-10-06 21:27] LABS: Reflex Lactate Order REFLEX LACTIC ORDERD
[2024-10-06 21:36] LABS: Glucose Urine UA Negative (Normal); Nitrate Urine Negative (Negative); Specific Gravity, Urine 1.015 (1.005-1.030)
[2024-10-06 21:53] LABS: UA Slide Review UA Slide Review Perf
--- NOTE | 2024-10-06 22:09 | CTR_ITS ---
PROCEDURE INFORMATION: Exam: CT Chest Without Contrast; Diagnostic Exam date and time: 10/06/2024 10:39 PM Age: 74 years old Clinical indication: Other: Sepsis TECHNIQUE: Imaging protocol: Diagnostic computed tomography of the chest without contrast. Radiation optimization: All CT scans at this facility use at least one of these dose optimization techniques: automated exposure control; mA and/or kV adjustment per patient size (includes targeted exams where dose is matched to clinical indication); or iterative reconstruction. COMPARISON: PT PET skull to thigh SUBS [id number] 07/29/2023 8:31 AM RADIATION DOSE METRICS: Total DLP (mGy-cm): 529.06 FINDINGS: Lungs: Scarring in the periphery of the left upper lobe (series 4, image 37). The previously seen pulmonary nodule in this location on the PET-CT dated 07/29/2023 is not present on today's examination. There is a 4 mm pulmonary nodule in the periphery of the right lower lobe (series 4, image 46). Close attention on follow-up imaging recommended. Pleural spaces: Unremarkable. No pneumothorax. No pleural effusion. Heart: Unremarkable. No cardiomegaly. No pericardial effusion. Coronary arteries: Coronary arterial atherosclerotic calcifications are present. Lymph nodes: Unremarkable. No enlarged lymph nodes. Vasculature: Aneurysmal dilatation of the distal thoracic aorta measuring up to 4.0 cm (series 6, image 66). Bones/joints: Unremarkable. No acute fracture. Soft tissues: Unremarkable. PROCEDURE INFORMATION: Exam: CT Abdomen And Pelvis Without Contrast Exam date and time: 10/06/2024 10:39 PM Age: 74 years old Clinical indication: Other: Sepsis TECHNIQUE: Imaging protocol: Computed tomography of the abdomen and pelvis without contrast. Radiation optimization: All CT scans at this facility use at least one of these dose optimization techniques: automated exposure control; mA and/or kV adjustment per patient size (includes targeted exams where dose is matched to clinical indication); or iterative reconstruction. COMPARISON: PT PET skull to thigh SUBS [id number] 07/29/2023 8:31 AM RADIATION DOSE METRICS: Total DLP (mGy-cm): 529.06 FINDINGS: Liver: Normal. No mass. Gallbladder and biliary ducts: Normal. No calcified stones. No ductal dilation. Pancreas: Normal. No ductal dilation. Spleen: Normal. No splenomegaly. Adrenal glands: Normal. No mass. Kidneys and ureters: Normal. No hydronephrosis. Stomach and bowel: Unremarkable. No obstruction. No mucosal thickening. Appendix: No evidence of appendicitis. Intraperitoneal space: Unremarkable. No free air. No significant fluid collection. 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 Severe atherosclerotic disease of the abdominal aorta and iliac arteries. Lymph nodes: Unremarkable. No enlarged lymph nodes. Urinary bladder: Unremarkable as visualized. Reproductive: Unremarkable as visualized. Bones/joints: Avascular necrosis of the bilateral femoral heads Soft tissues: Unremarkable. CT/[place] [id number] IMPRESSION: 1. Scarring in the periphery of the left upper lobe (series 4, image 37). The previously seen pulmonary nodule in this location on the PET-CT dated 07/29/2023 is not present on today's examination. 2. There is a 4 mm pulmonary nodule in the periphery of the right lower lobe (series 4, image 46). Close attention on follow-up imaging recommended. 3. Aneurysmal dilatation of the distal thoracic aorta measuring up to 4.0 cm, previously 3.5 cm (series 6, image 66). IMPRESSION: 1. No bowel obstruction or inflammatory process associated with the bowel. 2. No free air or significant free fluid in the abdomen or pelvis. 3. No evidence of appendicitis.
[2024-10-06] MEDS: cefepime 2,000 mg SDV 2000 MG IVP (22:11)
[2024-10-06] MEDS: linezolid premix 600 MG/300 ML PREMIX 300 MG IV (22:12)
[2024-10-06 22:13] VITALS: BP 109/84; PULSE 102; O2SAT 100
[2024-10-06 23:01] LABS: Lactic Acid level (Lactate) 1.7 mmol/L (0.5-2.2)
--- OUTSIDE RECORDS SUMMARY | 2024-10-06 23:06 | XMS_ITS | Patient Health Record ---
Author Organization [facility] Address [address] [place] [address] Care Team Providers Care Mounting Inspector Name Role Phone Ron Araujo Primary Care Provider Allergies Allergen (clinical drug ingredient) Drug/Non Drug Allergy documented on EMR Reaction Allergy Type Onset Date Status naproxen Naproxen Unknown Drug Allergy Active Reason For Referral No Information Medications Medication SIG (Take, Route, Frequency, Duration) Notes Start Date End Date Status Benazepril HCl 10 MG Tablet 1 tablet Orally Once a day; Duration: 90 days 02/10/2023 Active Budesonide-Formoterol Fumarate 160-4.5 MCG/ACT Aerosol 1 puff as needed Inhalation BID; Duration: 90 days 09/02/2023 03/13/2025 Active Social History Tobacco Use: Social History Observation Description Date Details (start date - stop date) Current Smoker NA - NA Social History Depression Screening Social Info Question Answer Notes depression screening findings Findings Negative (0 -4) 03/18/24 PHQ-9 Little interest or p erasmo in doing things Not at all Feeling down, depressed, or hopeless Not at all Trouble falling or staying asleep, or sleeping t oo much Not at all Feeling tired or having little energy Not at all Poor appetite or overeating Not at all Feeling bad about yourself, or that you are a failure, or have let yourself or your family down Not at all Trouble concentrating on thi ngs, such as reading the newspaper or watching television Not at all Moving or speaking so slowly that other people could have noticed. Or the opposite ? being so fidgety or restless that you have been moving around a lot more than usual Not at all Thoughts that you would be b ana off , or of hurting yourself in some way Not at all Total Score 0 Drugs/Alcohol: Social Info Question Answer Notes Alcohol Screen (Audit-C) Did you have a drink containing alcohol in the past year? Yes How often did you have a drink containing alcohol in the past year? 2 to 4 times a month (2 points) Points 2 Interpretation Negative Drugs Have you used drugs other than those for medical reasons in the past 12 months? No Tobacco Use: Social Info Question Answer Notes Tobacco Control (Standard) Tobacco use: Current smoker How often do you smoke cigarettes? Every day How many cigarettes a day do you smoke? 11- Section Notes: 03/18/24 Problems Problem Type SNOMED Code ICD Code Onset Dates Problem Status W/U Status Risk Notes Problem Weakness (40074127) Weakness (R53.1) Active confirmed Problem Essential hypertension (93975680) Essential hypertension (I10) Active confirmed Problem Malignant tumor of lung (508401115) Malignant neoplasm of lung, unspecified laterality, unspecified part of lung (C34.90) Active confirmed Problem Injury of head (46808054) Traumatic injury of head, initial encounter (S09.90XA) Active confirmed Problem Does mobilize using walker (finding) (333124578) Dependent on walker for ambulation (Z99.89) Active confirmed Problem Wernicke's encephalopathy (97671445) Wernicke encephalopathy (E51.2) Active confirmed Problem Frailty (390624405) Frailty (R54) Active confirmed Problem Confabulation (47670030) Confabulation (R41.3) Active confirmed Problem Skin cancer of arm, 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) Active confirmed Vital Signs Heart Rate 49 /min 03/18/2024 Temperature 98 degrees Fahrenheit 03/18/2024 Height-cm 190.5 cm 03/18/2024 Oximetry 99 % 03/18/2024 Blood pressure diastolic 80 mm Hg 03/18/2024 Weight-kg 69.94 kg 03/18/2024 Height 75 in 03/18/2024 Blood pressure systolic 160 mm Hg 03/18/2024 Weight 154.2 lbs 03/18/2024 BMI 19.27 kg/m2 03/18/2024 Encounters Encounter Location Date Provider Diagnosis [facility] [address] [phone] 03/18/2024 Ron Tafoyaran Essential hypertension I10 ; Wernicke encephalopathy E51.2 ; Scabies B86 ; Traumatic injury of head, initial encounter S09.90XA ; Depression screen Z13.31 and Body mass index [BMI] 19.9 or less, adult Z68.1 [facility] [address] [place] [phone] 04/02/2024 Jose Carlosmay Araujo Scabies B86 Assessments Encounter Date Diagnosis (ICD Code) Assessment Notes Treatment Notes Treatment Clinical Notes Section Notes 03/18/2024 Essential hypertension (ICD-10 - I10) 03/18/2024 Wernicke encephalopathy (ICD-10 - E51.2) 04/02/2024 Scabies (ICD-10 - B86) 03/18/2024 Scabies (ICD-10 - B86) 03/18/2024 Traumatic injury of head, initial encounter (ICD-10 - S09.90XA) 03/18/2024 Depression screen (ICD-10 - Z13.31) 03/18/2024 Body mass index [BMI] 19.9 or less, adult (ICD-10 - Z68.1) Plan Of Treatment No Information Insurance Providers Payer Name Payer Address Payer Phone Subscriber Number Group Number Insured Name Patient Relationship to Insured Coverage Start Date Coverage End Date [employer] [place] [address] [place] [address] [id number] GILLIAN PICHARDO Self - patient is the insured [place] Medicaid [address] [place] [address] [phone] [id number] GILLIAN PICHARDO Self - patient is the insured [place] Medicare [address] [address] [place] [address] [id number] GILLIAN PICHARDO Self - patient is the insured Medical (General) History Medical History History ICD Code Wernicke encephalopathy E51.2 Abnormal loss of weight R63.4 Acute weakness R53.1 Hyponatremia E87.1 Abnormal complete blood count R79.89 Hyperlipemia E78.5 Chronic hypertension I10 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
[2024-10-07] VITALS (9 sets, daily range): BP systolic 99–130; BP diastolic 58–98; PULSE 73–98; RESP 16–17; TEMP 36.6–36.9; O2SAT 95–100; BMI 19.1
--- NOTE | 2024-10-07 01:06 | PM.HP ---
Providers/Chief Complaint Admitting Physician: Vamshi Livingston MD Primary Care Provider: FEROZ LOUIE Chief Complaint: WEAKNESS History of Present Illness Xavi Jorge is a 74 year old male lives at home alone but his daughter Pooja lives next-door's and checks on him daily and also has a paid caregiver for him 2.5 hours a day. She noted that he was weak and dizzy and sent him into the hospital. He states that he has had balance issues and broken his right ankle years ago put in a cast and left ankle more recently surgically repaired by Dr. French. Patient states that Dr. 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 He smokes half pack a day previously more had a stroke 1.5 years ago leading to his dizziness and also heat intolerance. He states that it is hot and he does not drink much water admits that he likely got dehydrated. States he does not sleep well at night so sometimes feels weak in the morning White count was elevated here and Dr. Hook pursued a CT of the head chest x-ray and CT of chest abdomen pelvis did not find any source of infection. UA by cath UA showed 21-50 red cells 1+ leukocyte esterase, ketones negative 6-10 white cells Patient states he does not have air conditioning at his home and temperatures running 75-80 but he states he just cannot tolerate it like he could before his stroke Review of Systems Narrative: General Positive for weight loss no fevers chills. Patient felt weak and dizzy off balance this morning he states he is improved now with IV fluid Cardiovascular no chest pain palpitations or edema Respiratory positive for cough with sinus drainage and smokes 1/2 pack/day GI no nausea no dysuria hematuria Malignancy history positive for lung cancer Hematologic negative for clots in legs or lungs Medications/Allergies Home Medications ?Medication ?Instructions ?Recorded ?Confirmed ?Last Taken ?Type benazepril 10 mg tablet 10 mg PO DAILY 02/12/23 06/05/23 Unknown History folic acid 1 mg tablet 1 mg PO DAILY #30 tabs 02/12/23 06/05/23 Unknown Rx Allergies Allergy/AdvReac Type Severity Reaction Status Date / Time naproxen (From Aleve) Allergy Unknown Verified 02/12/23 14:00 PFSH Acute PFSH: Medical History (Updated 10/07/24 @ 01:12 by Vamshi Livingston MD) Non-small cell lung cancer Hyperlipidemia Hypertension Surgical History History of ankle surgery Family History Father Cancer throat Social History (Updated 10/07/24 @ 01:11 by Vamshi Livingston MD) Smoking and tobacco/nicotine status: light tobacco/nicotine user cigarettes Packs smoked per day: 0.25 Years cigarettes smoked: 55 Alcohol intake: never Substance/Drug Use: never Additional social history: 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 He wants full CODE STATUS Vitals/I&O/Wt Last Vital Signs Temp 98.3 F 10/06/24 19:21 Pulse 102 H 10/06/24 22:13 Resp 18 10/06/24 19:21 BP 109/84 10/06/24 22:13 Pulse Ox 100 10/06/24 22:13 O2 Del Method Room Air 10/06/24 22:13 10/06/24 10/06/24 10/07/24 14:59 22:59 06:59 Intake Total 1000 / 1000 1300 / 2300 Balance 1000 / 1000 1300 / 2300 Physical Exam Narrative: General well-developed tall 6 foot 4 per his report male thin disheveled CV regular rate and rhythm Lungs clear to auscultation bilaterally Abdomen positive bowel tones soft nontender Calves no tenderness cords pretrip edema Oropharynx Mallampati 1 edentulous no exudate Mentation is alert and orient times person place, did not check date Data 10/06/24 19:30 10/06/24 19:30 Micro: Microbiology 10/06/24 19:46 Blood Culture - Preliminary Blood SPECIMEN COLLECTED 10/06/24 19:44 Blood Culture - Preliminary Blood SPECIMEN COLLECTED A&P Assessment and plan 1. Dehydration: Patient is notably dehydrated with acute kidney injury and improved after 2-1/2 L of fluid. Will give another liter. He has not made urine here yet on his own and required cath for sample. Patient is weak with falling post history of CVA will have occupational therapy and physical therapy evaluation 2. Leukocytosis: Possibly attributed to UTI. UA mild 6-10 white cells leukocyte Estrace positive and no bacteria. Urine and blood cultures are pending 3. Smoker: Patient smokes half pack per day PDMP PDMP Reviewed: Not Reviewed Attestations Medical Necessity Statement*: Patient is admitted to the hospital under observation and expected to be discharged in less than 1 to 2 days. Coding Level of Care Code Acute Code for Chg Fwd Diagnoses Dehydration E86.0 Leukocytosis D72.829 Smoker F17.200
[2024-10-07] MEDS: sodium chlor 0.9% + KCl 20 mEq 20 MEQ/1,000 ML BAG 100 MEQ IV ×2 (04:46→16:19)
--- OUTSIDE RECORDS SUMMARY | 2024-10-07 06:41 | XMS_ITS | Patient Health Record ---
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 Name Role Phone Ron Araujo Primary Care [...] Status W/U Status Risk Notes Problem Weakness (14349605) Weakness (R53.1) Active confirmed Problem Essential hypertension (22636598) Essential hypertension (I10) Active confirmed Problem Malignant tumor of lung (336240212) Malignant neoplasm of lung, unspecified laterality, unspecified part of lung (C34.90) Active confirmed Problem Injury of head (02466631) Traumatic injury of head, initial encounter (S09.90XA) Active confirmed Problem Does mobilize using walker (finding) (642588955) Dependent on walker for ambulation (Z99.89) Active confirmed Problem Wernicke's encephalopathy (01737330) Wernicke encephalopathy (E51.2) Active confirmed Problem Frailty (065447274) Frailty (R54) Active confirmed Problem Confabulation (06738894) Confabulation (R41.3) Active confirmed Problem Skin cancer of arm, 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) Active confirmed Vital Signs Heart Rate 49 /min 03/18/2024 Temperature 98 degrees Fahrenheit 03/18/2024 Blood pressure diastolic 80 mm Hg 03/18/2024 Oximetry 99 % 03/18/2024 Height-cm 190.5 cm 03/18/2024 Weight-kg 69.94 kg 03/18/2024 Height 75 in 03/18/2024 Blood pressure systolic 160 mm Hg 03/18/2024 Weight 154.2 lbs 03/18/2024 BMI 19.27 kg/m2 03/18/2024 Encounters Encounter Location Date Provider Diagnosis [facility] [address] [address] 03/18/2024 Ron Tafoyaran Essential hypertension I10 ; Wernicke encephalopathy E51.2 ; Scabies B86 ; Traumatic injury of head, initial encounter S09.90XA ; Depression screen Z13.31 and Body mass index [BMI] 19.9 or less, adult Z68.1 [facility] [address] [place] [id number] 04/02/2024 Jose Carlosmay Araujo Scabies B86 Assessments [...] Coverage Start Date Coverage End Date BCBS [place] [address] [place] [address] [id number] GILLIAN PICHARDO Self - patient is the insured [place] Medicaid [address] [place] [address] [phone] [id number] GILLIAN PICHARDO Self - patient is the insured [place] Medicare [address] [address] [place] [address] [id number] GILLIAN PICHARDO Self - patient is the [...]
[2024-10-07] MEDS: cefTRIAXone 1,000 mg SDV 1000 MG IVP (09:16)
[2024-10-07 09:32] LABS: Hematocrit 33.9 % (37-53); Hemoglobin 11.80 g/dL (11.27-16.99); Mean Corpuscular HGB Conc 34.8 g/dL (30-55); Mean Corpuscular Hemoglobin 38.7 pg (27-33); Mean Corpuscular Volume 111.1 fl (82-101); Nucleated Red Blood Cells % 0 %; Platelet Count 66 10^3/cmm (157-399); Red Blood Count 3.05 10^6/uL (3.85-5.65); White Blood Count 16.31 10^3/uL (3.29-11.43)
[2024-10-07 09:46] LABS: Alanine Aminotransferase 16 U/L (0-41); Albumin Level 1.9 g/dL (3.5-5.2); Alkaline Phosphatase 88 U/L (40-130); Anion Gap 11.3 (5-19); Aspartate Amino Transferase 45 U/L (0-40); Blood Urea Nitrogen 15 mg/dL (8-23); Calcium 7.0 mg/dL (8.5-10.5); Carbon Dioxide 21 mmol/L (22-29); Chloride 105 mmol/L (98-107); Creatinine Clr Calc Pharmacy 54.6204; Globulin 2.8 g/dL (1.3-4.6); Glucose 87 mg/dL (65-115); Osmolality Calculated 276 mOsm/kg (285-295); Potassium 4.3 mmol/L (3.5-5.1); Sodium 133 mmol/L (136-145); Total Protein 4.7 g/dL (6.6-8.7)
--- NOTE | 2024-10-07 13:23 | PM.MISC ---
Miscellaneous Note Note: seen today leukocytosis, unknown origin BP better this am continue cefepime and vanc thrombocytopenia, possibly due to infection? cultures pending continue mgmt per HnP
--- NOTE | 2024-10-07 13:35 | PHA.VACGOAL ---
Vancomycin Goal - Goal Vancomycin Goal:: 15-20 mg/L Vancomycin Indication:: Other (SEPSIS) - Therapy Current therapy:: Cefepime Day of therpy:: Day []of [] . Actual body weight (kg): 153 lb - Data Labs: WBC 16.31 10^3/uL (3.29-11.43) H 10/07/24 09:21 RBC 3.05 10^6/uL (3.85-5.65) L 10/07/24 09:21 Hgb 11.80 g/dL (11.27-16.99) 10/07/24 09:21 Hct 33.9 % (37-53) L 10/07/24 09:21 MCV 111.1 fl (82-101) H D 10/07/24 09:21 MCH 38.7 pg (27-33) H 10/07/24 09:21 MCHC 34.8 g/dL (30-55) 10/07/24 09:21 RDW 13.4 % (12.1-15.1) 10/07/24 09:21 Sodium 133 mmol/L (136-145) L 10/07/24 09:21 Potassium 4.3 mmol/L (3.5-5.1) 10/07/24 09:21 Chloride 105 mmol/L (98-107) 10/07/24 09:21 Carbon Dioxide 21 mmol/L (22-29) L 10/07/24 09:21 Anion Gap 11.3 (5-19) 10/07/24 09:21 BUN 15 mg/dL (8-23) 10/07/24 09:21 Creatinine 1.2 mg/dL (0.7-1.2) 10/07/24 09:21 GFR Calculation Not Reportable 10/07/24 09:21 Treatment plan:: new consult Regimen:: TREATING SUSPECTED SEPSIS. GOAL TROUGH 15-20. ORDERED 2000 MG LOADING DOSE AND MAINTENANCE DOSE OF 750 MG Q12H. WILL OBTAIN TROUGH PRIOR TO 4TH MAINTENANCE DOSE.
[2024-10-07] MEDS: cefepime 1,000 mg SDV 1000 MG IVP (14:29)
--- NOTE | 2024-10-07 14:35 | NUR.SHIFT ---
Antibiotics IV started. Will admin one tme order for Albumin after abx completed as they are not compatible in IV. Pt only had 1 IV site and not willing to get another at this time.
[2024-10-07] MEDS: albumin 50 G/200 ML BAG 60 G IV (16:21)
--- NOTE | 2024-10-07 18:18 | PC.NURSE ---
Shift summary: Pt has rested in bed for majority of shift. He has been out for be to change his incontinence briefs and with PT. Vancomycin added. One time order for albumin started. He is still getting Cefepime. NS with 20mEq KCL IVF infusing at 100ml/hr, on hold at this time due to albumin infusing. No reports of p ain. Pt picks at his meals.
[2024-10-08] VITALS: BP 101/61; PULSE 80; RESP 16; TEMP 37.1; O2SAT 95
[2024-10-08] MEDS: cefepime 1,000 mg SDV 1000 MG IVP (02:06)
[2024-10-08 04:00] VITALS: BP 153/84; PULSE 76; RESP 17; TEMP 36.7; O2SAT 94
[2024-10-08 04:48] LABS: Hematocrit 29.8 % (37-53); Hemoglobin 10.30 g/dL (11.27-16.99); Mean Corpuscular HGB Conc 34.6 g/dL (30-55); Mean Corpuscular Hemoglobin 39.6 pg (27-33); Mean Corpuscular Volume 114.6 fl (82-101); Nucleated Red Blood Cells % 0 %; Platelet Count 67 10^3/cmm (157-399); Red Blood Count 2.60 10^6/uL (3.85-5.65); White Blood Count 11.00 10^3/uL (3.29-11.43)
[2024-10-08 06:45] LABS: Alanine Aminotransferase 18 U/L (0-41); Albumin Level 2.7 g/dL (3.5-5.2); Alkaline Phosphatase 77 U/L (40-130); Aspartate Amino Transferase 45 U/L (0-40); Blood Urea Nitrogen 14 mg/dL (8-23); Calcium 7.5 mg/dL (8.5-10.5); Carbon Dioxide 17 mmol/L (22-29); Chloride 106 mmol/L (98-107); Creatinine Clr Calc Pharmacy 48.3500; Globulin 2.2 g/dL (1.3-4.6); Glucose 84 mg/dL (65-115); Osmolality Calculated 280 mOsm/kg (285-295); Sodium 135 mmol/L (136-145); Thyroid Stimulating Hormone 0.66 uIU/mL (0.27-4.20); Total Protein 4.9 g/dL (6.6-8.7)
[2024-10-08 06:50] LABS: Anion Gap 16.6 (5-19); Potassium 4.6 mmol/L (3.5-5.1)
[2024-10-08] MEDS: sodium chlor 0.9% + KCl 20 mEq 20 MEQ/1,000 ML BAG 100 MEQ IV (07:00)
[2024-10-08 08:00] VITALS: BP 104/59; PULSE 97; RESP 15; TEMP 36.9; O2SAT 96
[2024-10-08] MEDS: cefTRIAXone 1,000 mg SDV 1000 MG IVP (08:58)
[2024-10-08 11:47] VITALS: BP 112/78; PULSE 75; RESP 15; TEMP 36.6; O2SAT 98
--- NOTE | 2024-10-08 11:47 | PM.DCS ---
Discharge Providers Date of Admission: 10/07/24 06:39 Date of Discharge: October 08, 2024 Attending Provider at Admission: Vamshi Livingston MD Attending Provider at Discharge: Ana Elziabeth MD Primary Care Provider: FEROZ LOUIE Diagnoses at Discharge Discharge Diagnosis 1. Dehydration: 2. Leukocytosis: 3. Smoker: Reason for Visit Reason for Visit: WEAKNESS Hospital Course Hospital Course Patient was admitted for dehydration and possible UTI. He was given IV fluids and urine culture was obtained. He did have leukocytosis of unknown origin. He was kept on cefepime and vancomycin. Patient felt better labs are back to baseline. He requested to go home and did well. Was discharged home in stable condition to follow-up with primary care doctor as an outpatient. Antibiotics given at discharge. Physical Exam Narrative: General well-developed CV regular rate and rhythm Lungs clear to auscultation bilaterally Abdomen positive bowel tones soft nontender Calves no tenderness cords pretrip edema edentulous no exudate Mentation is alert and orient times person place, Discharge Data Studies Completed and Pending Completed Studies During Hospitalization Category Date Time Status CT chest abdomen pelvis [[place] [id number] Cat Scan 10/06/24 22:09 Completed ] Stat CT head wo con* [id number] Stat Cat Scan 10/06/24 19:27 Completed XR chest 1V portable [id number] Stat Exams 10/06/24 19:28 Completed Pending at discharge Category Date Time Status Blood Culture Stat Lab 10/06/24 19:46 Results Vancomycin Trough Timed Lab 10/09/24 12:45 Ordered Radiology Impressions Head CT 10/06/24 19:27 IMPRESSION: 1. No acute intracranial abnormality. 2. Small-vessel ischemic disease. Chest X-Ray 10/06/24 19:28 IMPRESSION: No acute findings. ADDENDUM: 10/06/242025 Scarring in the left mid lung field laterally is redemonstrated with the previously seen 17 mm nodular density lateral aspect of the left mid lung field not visualized on today's examination. Interval resection? Calcified granuloma projecting through the right 5th rib anteriorly is seen to better advantage on the chest CT dated 03/03/2023 and likely of clinical significance. Calcified lymph nodes in the right hilum also redemonstrated and similar given differences technique. Chest/Abdomen/Pelvis CT 10/06/24 22:09 IMPRESSION: 1. Scarring in the periphery of the left upper lobe (series 4, image 37). The previously seen pulmonary nodule in this location on the PET-CT dated 07/29/2023 is not present on today's examination. 2. There is a 4 mm pulmonary nodule in the periphery of the right lower lobe (series 4, image 46). Close attention on follow-up imaging recommended. 3. Aneurysmal dilatation of the distal thoracic aorta measuring up to 4.0 cm, previously 3.5 cm (series 6, image 66). IMPRESSION: 1. No bowel obstruction or inflammatory process associated with the bowel. 2. No free air or significant free fluid in the abdomen or pelvis. 3. No evidence of appendicitis. Laboratory Results WBC 11.00 10^3/uL (3.29-11.43) 10/08/24 04:16 RBC 2.60 10^6/uL (3.85-5.65) L 10/08/24 04:16 Hgb 10.30 g/dL (11.27-16.99) L 10/08/24 04:16 Hct 29.8 % (37-53) L 10/08/24 04:16 MCV 114.6 fl (82-101) H 10/08/24 04:16 MCH 39.6 pg (27-33) H 10/08/24 04:16 MCHC 34.6 g/dL (30-55) 10/08/24 04:16 RDW 13.4 % (12.1-15.1) 10/08/24 04:16 Plt Count 67 10^3/cmm (157-399) L 10/08/24 04:16 MPV 12.5 fL (7.4-10.4) H 10/08/24 04:16 Neut % (Auto) 90.9 % 10/08/24 04:16 Lymph % (Auto) 4.3 % 10/08/24 04:16 [place] % (Auto) 2.5 % 10/08/24 04:16 Eos % (Auto) 1.3 % 10/08/24 04:16 Baso % (Auto) 0.4 % 10/08/24 04:16 Neut # (Auto) 10.00 10^3/uL (1.8-7.7) H 10/08/24 04:16 Lymph # (Auto) 0.5 10^3/uL (0.8-4.8) L 10/08/24 04:16 [place] # (Auto) 0.3 10^3/uL (0.2-0.9) 10/08/24 04:16 Eos # (Auto) 0.1 10^3/uL (0.0-0.8) 10/08/24 04:16 Baso # (Auto) 0.0 10^3/uL (0.0-0.1) 10/08/24 04:16 Nucleated RBC % (auto) 0 % 10/08/24 04:16 Nucleated RBCs # 0.0 /100WBC 10/08/24 04:16 Sodium 135 mmol/L (136-145) L 10/08/24 06:09 Potassium 4.6 mmol/L (3.5-5.1) 10/08/24 06:09 Chloride 106 mmol/L (98-107) 10/08/24 06:09 Carbon Dioxide 17 mmol/L (22-29) L 10/08/24 06:09 Anion Gap 16.6 (5-19) 10/08/24 06:09 BUN 14 mg/dL (8-23) 10/08/24 06:09 Creatinine 1.2 mg/dL (0.7-1.2) 10/08/24 06:09 GFR Calculation Not Reportable 10/08/24 06:09 Glucose 84 mg/dL (65-115) 10/08/24 06:09 Calculated Osmolality 280 mOsm/kg (285-295) L 10/08/24 06:09 Lactic Acid 2.9 mmol/L (0.5-2.2) H 10/06/24 19:30 Lactic Acid (Sepsis) 1.7 mmol/L (0.5-2.2) 10/06/24 22:33 Calcium 7.5 mg/dL (8.5-10.5) L 10/08/24 06:09 Total Bilirubin 0.8 mg/dL (0.15-1.2) 10/08/24 06:09 AST 45 U/L (0-40) H 10/08/24 06:09 ALT 18 U/L (0-41) 10/08/24 06:09 Alkaline Phosphatase 77 U/L (40-130) 10/08/24 06:09 Ammonia 30 umol/L (16-60) 10/06/24 19:30 Total Protein 4.9 g/dL (6.6-8.7) L 10/08/24 06:09 Albumin 2.7 g/dL (3.5-5.2) L 10/08/24 06:09 Globulin 2.2 g/dL (1.3-4.6) 10/08/24 06:09 TSH 0.66 uIU/mL (0.27-4.20) 10/08/24 06:09 Urine Color [place] (Yellow) A 10/06/24 21: Urine Appearance Cloudy (CLEAR) A 10/06/24: Urine pH 5.5 (5-7) 10/06/24 21: Ur Specific [place] 1.015 (1.005-1.030) 10/06/24 21:30 Urine Protein 1+ (Negative) A 10/06/24 21: Urine Glucose (UA) Negative (Normal) 10/06/24 21: Urine Ketones Trace (Negative) 10/06/24 21: Urine Blood 3+ (Negative) A 10/06/24: Urine Nitrate Negative (Negative) 10/06/24: Urine Bilirubin 1+ (Negative) H 10/06/24 21:30 Urine Urobilinogen 1.0 mg/dL (Negative) 10/06/24 21:30 Ur Leukocyte Esterase 1+ (Negative) A 10/06/24 21: Urine RBC 21-50 /hpf (0-2) H 10/06/24 21:30 Urine WBC 6-10 /hpf (0-5) 10/06/24 21:30 Ur Squamous Epith Cells 0-5 /hpf (0-5) 10/06/24: Amorphous Sediment Not Reportable 10/06/24 21: Urine Bacteria None seen /hpf (NONE) 10/06/24 21:30 Hyaline Casts 7.01 /lpf 10/06/24 21:30 Urine Mucus 3+ /hpf 10/06/24 21:30 Urine Yeast Trace /hpf 10/06/24 21:30 Ethyl Alcohol < 10 mg/dL (0-10) 10/06/24 19:30 Vitals Last Vital Signs Temp 98.4 F 10/08/24 08:00 Pulse 97 10/08/24 08:00 Resp 15 10/08/24 08:00 BP 104/59 10/08/24 08:00 Pulse Ox 96 10/08/24 08:00 O2 Del Method Room Air 10/08/24 08:00 Discharge Plan Discharge Patient Disposition: Home Health Service Condition: Stable Prescriptions: New multivitamin [Daily Multi-Vitamin] Tablet 1 tab PO DAILY Qty: 30 0RF levofloxacin 500 mg tablet 500 mg PO DAILY 5 Days Qty: 5 0RF Continued fluticasone furoate-vilanterol [Breo Ellipta] 100-25 mcg/dose blister with device 1 inh INHALATION BID Held benazepril 10 mg tablet 10 mg PO DAILY Hold Instructions: see pcp Discontinued ibuprofen 200 mg Tablet 400 mg PO Q6H PRN (Reason: Pain) Discharge Order = DC NOW: Discharge Order (Routine); Ordered 10/08/24 Ordered By: Ana Elizabeth Referrals: Elver Araujo MD [Physician, Internal Medicine] - 1-3 days Referral Note: We have notified your physician's clinic of the need for a follow-up appointment to be scheduled. If you have not heard from them within the next 2 business days, please call them directly. Discharge Diet: Regular Discharge Activity: As per PT/OT instructions Patient Instructions: Dehydration - Adult, Multivitamins, Adult Formula (By mouth) (Daily Multiple Vitamins,..., Levofloxacin (By mouth), Urinary Tract Infection in Men (DC), Opioid Safety, Patient Portal & Mesha Instructions Discharge Attestations Time Spent in Discharge Care*: less than 30 min Quality Metrics Clinical Quality Measures [ No reported AMI, CVA or VTE this stay] Coding Level of Care Code Acute Code for Chg Fwd Diagnoses Dehydration E86.0 Leukocytosis D72.829 Smoker F17.200
--- NOTE | 2024-10-08 12:48 | PC.OT ---
Attempted OT Tx at 10:25am and patient is noted to be sleeping and does not arouse to verbal prompting. Continue OT services following treatment plan.
--- NOTE | 2024-10-08 14:34 | PC.NURSE ---
All D/C instructions educated to patient and daughter at bedside. daughter transported patient home, iv dc
[2024-10-08 14:35] VITALS: BP 106/62; PULSE 95; O2SAT 96
== END 2024-10-08 14:37 | disposition home health service (06) ==
LOC: ER 10-07 00:10 → ER IP 10-07 00:42 → MEDSURG 10-07 06:39
PROVIDERS: Admitting Provider Internal Medicine; Emergency Provider Emergency Medicine; PCP Internal Medicine Cardiovascular Disease; Visit Provider Internal Medicine
DX: E86.0 Dehydration (principal); D72.829 Elevated white blood cell count, unspecified; D69.6 Thrombocytopenia, unspecified; F17.210 Nicotine dependence, cigarettes, uncomplicated; Z86.73 Personal history of transient ischemic attack (TIA), and cerebral infarction without residual deficits; E78.5 Hyperlipidemia, unspecified; I10 Essential (primary) hypertension; Z85.118 Personal history of other malignant neoplasm of bronchus and lung
CPT/HCPCS: 36415; 70450; 71045; 71250; 74176; 80053; 80307; 81001; 82140; 83605; 84443; 85025; 87040; 87086; 96372; 97161; 97165; 97530; G0378; J0692; J0696; J1650; J2020; J3372; J3373; J3480; J7030; J7040; J7050; J9999; P9046